=== PATIENT | male | born 1950 | race Caucasian/White ===

== ENCOUNTER 2018-04-20 01:05 | Outpatient (CLI) | payer OTHER, SELFPAY ==
[2018-04-20 11:11] LABS: ALT 15 U/L (12-78); AST 17 U/L (15-37); Albumin 3.1 g/dL (3.4-5.0); Alkaline Phosphatase 158 U/L (46-116); Anion Gap 9.6 mmol/L (3-11); BUN 69 mg/dL (7-18); Bilirubin, Total 1.9 mg/dL (0.2-1.0); CO2 34.4 mmol/L (21.0-32.0); CREATININE 1.62 mg/dL (0.70-1.30); Calcium 8.8 mg/dL (8.5-10.1); Chloride 94 mmol/L (98-107); Estimated GFR 42.59 (mL/min/1.73m2); Glucose 110 mg/dL (70-100); Potassium 3.3 mmol/L (3.5-5.1); Sodium 138 mmol/L (136-145); Total Protein 7.5 g/dL (6.4-8.2)
[2018-04-20 11:25] LABS: INR 2.6 (1.0-3.5); Prothrombin Time 24.6 sec (9.3-10.8)
== END 2018-04-20 01:25 ==
PROVIDERS: Family Medicine
DX: I42.9 Cardiomyopathy, unspecified (principal); I48.91 Unspecified atrial fibrillation; R94.6 Abnormal results of thyroid function studies; I48.92 Unspecified atrial flutter; Z79.01 Long term (current) use of anticoagulants
CPT/HCPCS: 36415; 80053; 84443; 85610

== ENCOUNTER → 2018-05-17 13:24 | Outpatient (BNVA) | payer OTHER, SELFPAY | PROVIDERS: Visit Provider Internal Medicine Cardiovascular Disease | DX: I42.9 Cardiomyopathy, unspecified (principal); I50.9 Heart failure, unspecified; R94.5 Abnormal results of liver function studies; I07.1 Rheumatic tricuspid insufficiency; I48.91 Unspecified atrial fibrillation; Z79.01 Long term (current) use of anticoagulants | CPT/HCPCS: 99215 ==

== ENCOUNTER 2018-05-25 14:47 | Inpatient (IN) | payer OTHER, SELFPAY ==
[2018-05-25 15:02] VITALS: BP 144/82; PULSE 65; RESP 18; TEMP 37; O2SAT 94
[2018-05-25 15:04] VITALS: RESP 18
--- NOTE | 2018-05-25 15:06 | DI.COMBO_ITS ---
SYMPTOM/DIAGNOSIS: ALTERED MENTATION FRONTAL AND LATERAL CHEST: Comparison is made with 07/29/11. The heart is enlarged but stable. Pulmonary vasculature is within normal limits. There is scarring again seen in the right upper lobe. No focal consolidating infiltrate, effusion or pneumothorax is identified. The lungs appear hyperinflated with flattened diaphragms suggesting underlying COPD. The bones are unremarkable. IMPRESSION: No acute pulmonary process. NONCONTRAST HEAD CT: No priors. The ventricles and sulci are consistent with the patient's age, likely reflecting mild cerebral atrophy. There are areas of decreased attenuation in the white matter most suggestive of small vessel ischemic disease. No acute infarct, hemorrhage, midline shift or mass effect is identified. The ventricles are intact. The basilar cisterns are patent. The visualized paranasal sinuses are clear. The mastoid air cells are well pneumatized. The calvarium is intact. IMPRESSION: No acute intracranial process.
--- NOTE | 2018-05-25 15:12 | ED.GENADUL_ITS ---
Discharge Plan Disposition Condition: Fair Discharge Details Chief Complaint: AMS/LOC Reason For Visit: ALTERED MENTAL STATUS Admit Date/Time: 05/25/18 16:19 Admit Provider: Michael Hernandez Attending Provider: Michael Hernandez Primary Care Provider: Destinee Lewis ED Provider: Henry Rhodes Discharge Instructions Activity:: Activity as Tolerated Equipment/Supplies:: No Equipment Needed Diet:: Low Sodium Discharge Orders Discharge Orders: Discharge Order (Routine); Ordered 06/01/18 Ordered By: Meri Cardozo Discharge Data Discharge Date/Time-TO BE ENTERED AT DEPARTURE: 05/25/18 18:43 Medical Decision Making 15:15--68-year-old male with multiple medical problems including chronic kidney disease, cardiomyopathy, CHF, atrial fibrillation status post ablation, MGUS, COPD, here with altered mental status worsening over the past 1 week. Patient is now severely altered and oriented only to person. His baseline is alert and oriented x4. No focal neurologic deficits on exam. ECG reviewed and interpreted by me: Atrial fibrillation 84 bpm, diffuse low voltage, intermittent PVCs, right axis deviation. 16:15 --labs reviewed and total bilirubin elevated, ammonia elevated. Unclear etiology. Suspect this is resulting in altered mental status. INR supratherapeutic. I called and spoke with Dr. Hernandez (hospitalist) who will admit the patient. He requested bridging orders to the floor. Care transitioned to Dr. Hernandez. HPI General Mode of arrival: ambulatory . Date/Time Provider Initiated Documentation: 05/25/18 14:52 . Limitations to Documentation: altered mental status . Information obtained by: patient and family () . HPI Narrative: 68-year-old male with history of heart failure, cardiomyopathy, COPD, MGUS, atrial fibrillation status post ablation, chronic renal disease, here with altered mental status. History and review of systems Limited as patient is altered. Patient's notes that over the past 1 week he has had progressively increasing confusion. He is now severely confused. Patient is usually alert and oriented x4. Patient denies pain. Related Data Home Medications Medication Instructions Recorded Confirmed magnesium oxide 400 mg PO BID #180 tab-cap 04/08/15 05/25/18 mupirocin calcium [Bactroban] 1 applic TOPICAL BID PRN #30 gm 08/19/15 05/25/18 digoxin 1 tab PO DAILY #90 tab-cap 03/28/17 05/25/18 triamcinolone acetonide 1 lorna TOPICAL BID #1 tube 04/17/17 05/25/18 tiotropium bromide [Spiriva with 18 mcg INHALATION DAILY PRN #3 10/19/17 HandiHaler] tab-cap allopurinol 300 mg PO DAILY #90 tab-cap 10/27/17 05/25/18 metolazone 5 mg PO as directed #30 tab-cap 12/13/17 05/25/18 torsemide 60 mg PO DAILY #180 tab-cap 12/13/17 05/25/18 lisinopril 2.5 mg tablet 2.5 mg PO DAILY #90 tab 04/04/18 05/25/18 simvastatin 40 mg PO DAILY #90 tab-cap 04/17/18 05/25/18 potassium chloride ER 10 mEq 10 meq PO DAILY #90 tab 05/20/18 05/25/18 tablet,extended release lactulose 20 g PO TID #1800 g 05/31/18 rifaximin [Xifaxan] 550 mg PO BID #60 tab 05/31/18 Previous Rx's Medication Instructions Recorded triamcinolone acetonide 1 lorna TOPICAL BID #1 tube 04/17/17 allopurinol 300 mg PO DAILY #90 tab-cap 10/27/17 metolazone 5 mg PO as directed #30 tab-cap 12/13/17 torsemide 60 mg PO DAILY #180 tab-cap 12/13/17 lisinopril 2.5 mg tablet 2.5 mg PO DAILY #90 tab 04/04/18 simvastatin 40 mg PO DAILY #90 tab-cap 04/17/18 potassium chloride ER 10 mEq 10 meq PO DAILY #90 tab 05/20/18 tablet,extended release lactulose 20 g PO TID #1800 g 05/31/18 rifaximin [Xifaxan] 550 mg PO BID #60 tab 05/31/18 Allergies Allergy/AdvReac Type Severity Reaction Status Date / Time heparin AdvReac Severe decreased Verified 05/15/18 13:30 renal function ? Iodine AdvReac Intermediate Rash Uncoded 02/25/16 08:45 General Stated Complaint: AMS/LOC SUSIE: 2 Review of Systems Review of Systems Limited secondary to altered mental status Cardiovascular Denies chest pain, Denies syncope and Denies dyspnea Respiratory Denies dyspnea Gastrointestinal Denies abdominal pain Neurologic Denies syncope PFSH Family History Brother Heart disease Grandfather No problems noted. Grandfather No problems noted. Mother Diabetes Alcohol abuse Father Alcohol abuse Grandmother Diabetes Grandmother No problems noted. 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) Sleep apnea (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) Hyperlipidemia (Chronic 03/20/13) History of alcoholism (Chronic) Family hx of alcoholism (Chronic) History of tobacco use (Chronic) Gout (Chronic 03/03/14) Facial dermatitis (Chronic 04/17/17) Disorder of lung (Acute 11/14/12) Chronic venous stasis dermatitis of both lower extremities (Chronic 10/24/17) Atrial fibrillation (Chronic 03/03/14) Anticoagulated on warfarin (Chronic) Social History household members: spouse housing: house lives independently: No (pt doesn't drive, meals done ahead if will be alone) current occupational status: retired pets and animals: Yes (cat is currently missing) pets and animals: cat(s) frequency: daily Smoking/Tobacco Use Status: Former Tobacco Use how long ago did patient quit smoking: QUIT 04/06/2005 alcohol intake: never details: Unknown substance use type: does not use special uriah needs: No seatbelt use: always drive intox or ride w/ intox garbage collector driver: No working smoke detector in home: Yes fire extinguisher in home: Yes carbon monox detector in home: Yes firearms in home: No Surgical History Extraction of cataract (02/18/16) 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) Exam Const General: cooperative and no acute distress HENMT Head: normocephalic and atraumatic Mouth: moist mucous membranes Eyes Conjunctivae: normal conjunctivae Sclera: normal sclerae Pupils: PERRL and pupil size (5) bilaterally EOM: EOM intact bilaterally Neck Neck: trachea midline and supple Resp Auscultation: clear to auscultation bilaterally, no rales, no rhonchi and no wheezes Cardio Jugular venous pressure: no JVD Rate: regular rate and not tachycardic Rhythm: regular rhythm GI Palpation: soft, not firm, no guarding, no masses, not rigid and nontender Skin General skin exam: other (cyanosis nose ( notes chronic); chronic venous stasis LEs bilateral) Neuro General: alert, awake, oriented Patient Orientation: Person and moves all extremities Cranial Nerves: CN's II-XI intact bilaterally Cognition: abnormal cognition Speech: speech normal Motor: strength 5/5 throughout Sensory Exam: no sensory deficits noted Pupils: Normal pupillary reactivity/response: bilateral Extrem General: no edema Psych Mental Status: mental status grossly abnormal Course Vital Signs Temperature 37.0 C 05/25/18 15:02 Pulse 65 05/25/18 15:02 Respiratory Rate 18 05/25/18 15:02 Blood Pressure 144/82 H 05/25/18 15:02 Pulse Oximetry 94 L 05/25/18 15:02 Temperature 37.0 C 05/25/18 15:02 Temperature Source Temporal Artery Scan 05/25/18 15:02 Pulse 65 05/25/18 15:02 Respiratory Rate 18 05/25/18 15:04 Respiratory Effort 05/25/18 15:04 Respiratory Pattern Normal 05/25/18 15:04 Blood Pressure 144/82 H 05/25/18 15:02 Blood Pressure Position Sitting 05/25/18 15:02 Pulse Oximetry 94 L 05/25/18 15:02 Oxygen Delivery Method Room Air 05/25/18 15:02 Oxygen Flow Rate 0 05/25/18 15:02 Pain Level 0 05/25/18 15:02
[2018-05-25 15:28] LABS: Absolute Basophil Count 0.04 k/cumm (0.0-0.2); Absolute Eosinophil Count 0.06 k/cumm (0.0-0.7); Absolute Lymphocyte Count 1.27 k/cumm (1.2-3.4); Absolute Monocyte Count 0.61 k/cumm (0.11-0.7); Absolute Neutrophil Count 3.87 k/cumm (1.2-6.7); Basophils % 0.7; HCT 50.4 % (40.0-50.0); HGB 16.4 g/dL (13.5-17.5); Lymphocytes % 21.7; Mean Corp. HGB Concentration 32.5 g/dL (32.0-36.0); Mean Corpuscular Hemoglobin 32.5 pg (27.0-33.0); Mean Corpuscular Volume 99.8 fL (80-95); Mean Platelet Volume 10.7 fL (8.0-11.0); Monocytes % 10.4; Neutrophils % 66.2; Platelet Count 233 x1000/uL (130-400); RBC 5.05 m/cumm (4.50-6.00); RBC Distribution Width 16.1 % (11.8-14.1); White Blood Cell Count 5.85 k/cumm (4.4-10.8)
[2018-05-25 15:41] LABS: Ammonia 151 umol/L (11-32)
[2018-05-25 15:42] LABS: INR 3.8 (1.0-3.5); Prothrombin Time 35.5 sec (9.3-10.8)
[2018-05-25 15:44] LABS: ALT 18 U/L (12-78); AST 22 U/L (15-37); Albumin 2.7 g/dL (3.4-5.0); Alkaline Phosphatase 223 U/L (46-116); BUN 55 mg/dL (7-18); Bilirubin, Total 1.8 mg/dL (0.2-1.0); Calcium 8.8 mg/dL (8.5-10.1); Chloride 94 mmol/L (98-107); Estimated GFR 40.16 (mL/min/1.73m2); Glucose 140 mg/dL (70-100); Potassium 3.7 mmol/L (3.5-5.1); Sodium 135 mmol/L (136-145); Total Protein 8.2 g/dL (6.4-8.2); Troponin I 0.02 ng/mL (0.00-0.06)
[2018-05-25 15:50] LABS: Magnesium 1.9 mg/dL (1.8-2.4); TSH (W/Ref FT4) 2.85 uIU/mL (0.358-3.74)
[2018-05-25 15:56] LABS: Bilirubin Negative (Negative); Blood Trace-lysed (Negative); Clarity Clear; Glucose Negative (Negative); Ketones Negative (Negative); Leukocyte Esterase Negative (Negative); Nitrite Negative (Negative); Specific Gravity 1.015 (1.005-1.025); Urobilinogen 0.2 EU/dL (Up TO 0.2)
[2018-05-25 16:04] LABS: Bacteria Rare HPF (Negative); C & S Indicated? No; Casts Negative LPF (Negative); Crystals Negative HPF (Negative); Epithelial Cells Negative HPF (Negative); Mucus Negative (Negative); WBC 0-2 HPF (0-5)
--- NOTE | 2018-05-25 16:46 | DI.VRAD_ITS ---
EXAM: XR Chest, 2 Views EXAM DATE/TIME: 05/25/2018 3:09 PM CLINICAL HISTORY: 68 years old, male; Signs and symptoms; Other: Altered mentation TECHNIQUE: XR of the chest, 2 views. COMPARISON: CR CHEST 2 VIEWS PA,LAT 07/29/2011 11:16 AM FINDINGS: Lungs: Unremarkable. No consolidation. Pleural space: Unremarkable. No pleural effusion. No pneumothorax. Heart/Mediastinum: Cardiomegaly, unchanged. Bones/joints: Unremarkable. IMPRESSION: No acute abnormality. Dictated and Authenticated by: Dionisio Bello MD. Ordering:ALEXI SEBASTIAN MD
--- NOTE | 2018-05-25 16:49 | DI.VRAD_ITS ---
EXAM: CT Head Without Intravenous Contrast EXAM DATE/TIME: 05/25/2018 3:09 PM CLINICAL HISTORY: 68 years old, male; Signs and symptoms; Altered mental status/memory loss; Patient HX: Altered mentation TECHNIQUE: Axial computed tomography images of the head/brain without intravenous contrast. Coronal and sagittal reformatted images were created and reviewed. COMPARISON: No relevant prior studies available. FINDINGS: Brain: Global cerebral atrophy consistent with patient's age. Minimal low density changes within the white matter tracts of both cerebral hemispheres. These findings are nonspecific but typically seen with small vessel disease/chronic white matter ischemic changes of aging. No intracranial hemorrhage. No mass effect. Ventricles: Unremarkable. No ventriculomegaly. Bones/joints: Unremarkable. No acute fracture. Sinuses: Normal as visualized. No acute sinusitis. Mastoid air cells: Normal as visualized. No mastoid effusion. Soft tissues: Unremarkable. Vasculature: Mild atherosclerosis of the cavernous carotid arteries. IMPRESSION: No acute abnormality. Dictated and Authenticated by: Dionisio Bello MD. Ordering:ALEXI SEBASTIAN MD
--- NOTE | 2018-05-25 16:58 | NUR.NOTE ---
3 beat run of V-tach reported to Dr Rhodes Nursing Note:
[2018-05-25] MEDS: Normal Saline 1,000 ML 125 ML IV ×2 (17:35→22:53)
--- NOTE | 2018-05-25 18:47 | W.PM.HP.N ---
Date of service: 05/25/18 Time of Service: 18:47 Assessment and Plan (1) Altered mental status: Current visit: Yes Status: Acute Evidence of slowly progressive and worsening change in mental status over the last week. Currently with evidence of elevated ammonia levels in patient with possible prior ETOH abuse/use - spouse cannot confirm this, but this diagnosis is a historic entry. Also with significant biventricular failure with likely Congestive Hepatopathy as a result of significant PHTN and right heart failure. Potential for underlying liver disease - Will check Liver Ultrasound, start Lactulose, repeat am ammonia, and monitor mental status carefully. Also for potential chronic Digoxin toxicity, although without any GI symptoms - will check levels now. Also check B12/FA. TSH normal. Patient without evidence of an infection with a normal urinalysis, CXR, temperature, and WBC. No evidence of acidosis by labs, not hypoxic, and no new medications. Troponin is negative, but will trend serial cardiac biomarkers. No evidence of space occupying lesions by CT, and no significant electrolyte derangement. (2) Congestive heart failure: Current visit: Yes Status: Chronic Biventricular CHF, with LVEF 20-25% - Stage C NYHA Class IV CHF. Continue current regimen of BB, ASA, and statin, although etiology of heart failure is unknown. daily Torsemide with twice weekly Metolazone. (3) CKD (chronic kidney disease): Current visit: Yes Status: Chronic Noted in patient on diuretic therapy and significant cardiomyopathy. Current vallues slightly above baseline. Monitor, renally dose medications when appropriate, and avoid nephrotoxins if possible. (4) BUCKY (obstructive sleep apnea): Current visit: Yes Status: Chronic CPAP noncompliant. Reported significant history of PHTN. (5) Atrial fibrillation: Current visit: Yes Status: Chronic Continue BB and Digoxin, and monitor on telemetry. Coumadin on hold. (6) Anticoagulated on warfarin: Current visit: Yes Status: Chronic Chronic anticoagulation with Coumadin, currently on hold due to Supratherapeutic INR. (7) DVT prophylaxis: Current visit: Yes Status: Acute Holding Coumadin with daily INR checks, currently elevated value. PPI for GI Prophylaxis. (8) Advanced directives, counseling/discussion: Current visit: Yes Status: Acute Discussed in detail. Patient is considered full code at this time, but will bring COLST form for review tomorrow. Understanding is that he wants 'everything done' as long as there is hope for survival. Will maintain full code for now and review COLST when available. Patient has seen Palliative medicine. History of Present Illness Chief Complaint: Altered Mental Status Narrative: 68 year old man with a past medical history significant for Severe Biventricular CHF, Afib on chronic Anticoagulation, CKD, and possible prior history of ETOH abuse presents to [facility] Emergency Department with reported progressive altered mental status. Mr. Malik is accompanied by his who is the primary historian. She reports that approximately one week ago the patient began experiencing slight confusion, with events such as forgetting to close the refrigerator door. By midweek she reports that his symptoms had progressed, and he at times appeared nonsensical in his speech and interactions. By 2 days ago she states that he was having tremendous difficulty with using items such as his iPhone, iPad, and the Television Remote. Today she left the house briefly to go shopping, and upon her return found the patient in the living room confused and with his pants down. At that point she brought him to the emergency room for further evaluation. Work-up in the ED included normal CXR and CT of the head. Labs were fairly unremarkable with the exception of mild elevation in bilirubin and Alk Phos with normal ALT/AST, but with an elevated Ammonia of 151. His urinalysis was negative. The patient was also found to be confused and oriented to self only. He was referred for admission for further evaluation and treatment. Review of Systems Review of Systems Unobtainable due to mental status [facility] Family History Brother Heart disease Grandfather No problems noted. Grandfather No problems noted. Mother Diabetes Alcohol abuse Father Alcohol abuse Grandmother Diabetes Grandmother No problems noted. Medical History Hand arthritis (Acute) MGUS (monoclonal gammopathy of unknown significance) (Acute 01/14/15) Sleep apnea (Acute 01/14/15) History of tobacco use (Acute) Gout (Acute 03/03/14) Disorder of lung (Acute 11/14/12) Cardiomyopathy (Acute 11/14/12) Atrial fibrillation (Acute 03/03/14) Social History household members: spouse housing: house lives independently: No (pt doesn't drive, meals done ahead if will be alone) current occupational status: retired pets and animals: Yes (cat is currently missing) pets and animals: cat(s) frequency: daily Smoking/Tobacco Use Status: Former Tobacco Use how long ago did patient quit smoking: QUIT 04/06/2005 alcohol intake: never substance use type: does not use special uriah needs: No seatbelt use: always drive intox or ride w/ intox stake driver: No working smoke detector in home: Yes fire extinguisher in home: Yes carbon monox detector in home: Yes firearms in home: No Surgical History Extraction of cataract (02/18/16) 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) Meds Home Medications Medication Instructions Recorded Confirmed Type magnesium oxide 400 mg PO BID #180 tab-cap 04/08/15 05/25/18 History mupirocin calcium [Bactroban 2% 1 applic TOPICAL BID PRN #30 gm 08/19/15 05/25/18 History Cream] digoxin 1 tab PO DAILY #90 tab-cap 03/28/17 05/25/18 History triamcinolone acetonide 1 lorna TOPICAL BID #1 tube 04/17/17 05/25/18 Rx tiotropium bromide [Spiriva 18 mcg INHALATION DAILY PRN #3 10/19/17 05/25/18 History Handihaler] tab-cap allopurinol 300 mg PO DAILY #90 tab-cap 10/27/17 05/25/18 Rx Metoprolol Succinate 50 mg PO DAILY #90 tab-cap 12/13/17 05/25/18 Clinic metolazone 5 mg PO as directed #30 tab-cap 12/13/17 05/25/18 Rx torsemide 60 mg PO DAILY #180 tab-cap 12/13/17 05/25/18 Rx lisinopril 2.5 mg tablet 2.5 mg PO DAILY #90 tab 04/04/18 05/25/18 Rx simvastatin 40 mg PO DAILY #90 tab-cap 04/17/18 05/25/18 Rx warfarin 5 mg tablet 5 mg PO DAILY #100 tab-cap 05/07/18 05/25/18 Rx potassium chloride ER 10 mEq 10 meq PO DAILY #90 tab 05/20/18 05/25/18 Rx tablet,extended release Allergies Allergy/AdvReac Type Severity Reaction Status Date / Time heparin AdvReac Severe decreased Verified 05/15/18 13:30 renal function ? Iodine AdvReac Intermediate Rash Uncoded 02/25/16 08:45 Exam Narrative Exam Narrative: General: Patient appears comfortable, NAD. Awake and Alert, oriented to self only. Neck: Supple CV: Regular, nontachycardic, S1S2, No rubs, 3/6 LLSB murmur, no gallops. Pulmonary: Clear to auscultation bilaterally, no crackles, wheezing, or rhonchi on limited anterior and lateral exam Abdomen: + Bowel Sounds, soft, nontender, nondistended. Obese in contour. No [place] noted. Vascular: No lower extremity edema Neurologic: CN II-XII grossly intact. No focal deficits. Psych: Normal mood and affect. Results Labs : 05/25/18 15:16 05/25/18 15:16 Laboratory Results - last 24 hr 05/25/18 05/25/18 05/25/18 15:16 15:16 15:16 WBC RBC Hgb Hct MCV MCH MCHC RDW Plt Count MPV Immature Gran % Neutrophils % Lymphocytes % Monocytes % Eosinophils % Basophils % Absolute Neutrophils Absolute Lymphocytes Absolute Monocytes Absolute Eosinophils Absolute Basophils PT INR Sodium 135 L Potassium 3.7 Chloride 94 L Carbon Dioxide 36.0 H Anion Gap 5.0 BUN 55 H Creatinine 1.70 H Estimated GFR/1.73 m2 40.16 Glucose 140 H Calcium 8.8 Magnesium 1.9 Total Bilirubin 1.8 H AST 22 ALT 18 Alkaline Phosphatase 223 H Ammonia 151 H Troponin I 0.02 Total Protein 8.2 Albumin 2.7 L TSH 2.85 Urine Color Urine Clarity Urine pH Ur Specific [place] Urine Protein Urine Ketones Urine Blood Urine Nitrite Urine Bilirubin Urine Urobilinogen Ur Leukocyte Esterase Urine RBC Urine WBC Ur Epithelial Cells Urine Crystals Urine Bacteria Urine Casts Urine Mucus Ur Culture Indicated? Urine Glucose 05/25/18 05/25/18 05/25/18 15:16 15:16 15:49 WBC 5.85 RBC 5.05 Hgb 16.4 Hct 50.4 H MCV 99.8 H MCH 32.5 MCHC 32.5 RDW 16.1 H Plt Count 233 MPV 10.7 Immature Gran % 0.0 Neutrophils % 66.2 Lymphocytes % 21.7 Monocytes % 10.4 Eosinophils % 1.0 Basophils % 0.7 Absolute Neutrophils 3.87 Absolute Lymphocytes 1.27 Absolute Monocytes 0.61 Absolute Eosinophils 0.06 Absolute Basophils 0.04 PT 35.5 H INR 3.8 H Sodium Potassium Chloride Carbon Dioxide Anion Gap BUN Creatinine Estimated GFR/1.73 m2 Glucose Calcium Magnesium Total Bilirubin AST ALT Alkaline Phosphatase Ammonia Troponin I Total Protein Albumin TSH Urine Color Yellow Urine Clarity Clear Urine pH 7.0 Ur Specific [place] 1.015 Urine Protein Negative Urine Ketones Negative Urine Blood Trace-lysed H Urine Nitrite Negative Urine Bilirubin Negative Urine Urobilinogen 0.2 Ur Leukocyte Esterase Negative Urine RBC 5-10 H Urine WBC 0-2 Ur Epithelial Cells Negative Urine Crystals Negative Urine Bacteria Rare Urine Casts Negative Urine Mucus Negative Ur Culture Indicated? No Urine Glucose Negative Last Vital Signs Temp 37.0 C 05/25/18 15:02 Pulse 65 05/25/18 15:02 Resp 18 05/25/18 15:04 BP 144/82 H 05/25/18 15:02 Pulse Ox 94 L 05/25/18 15:02
[2018-05-25 19:24] VITALS: BP 116/71; PULSE 78; RESP 22; TEMP 36.4; O2SAT 97
[2018-05-25] MEDS: Normal Saline Flush 10 ML SYR (19:34)
[2018-05-25] MEDS: Pantoprazole 40 MG VIAL IVP (19:34)
[2018-05-25] MEDS: Simvastatin 40 MG TAB PO (19:40)
[2018-05-25] MEDS: Magnesium Oxide 400 MG TAB PO (19:40)
[2018-05-25] MEDS: Lactulose 20 GM/30 ML CUP PO (19:41)
[2018-05-25 22:45] LABS: Troponin I 0.04 ng/mL (0.00-0.06)
[2018-05-25 23:07] LABS: Folate 14.9 ng/mL (8.6-20.0); Vitamin B12 738 pg/mL (193-986)
[2018-05-25 23:45] VITALS: BP 92/55; PULSE 50; RESP 20; TEMP 36.4; O2SAT 96
[2018-05-26] VITALS (9 sets, daily range): BP systolic 122–132; BP diastolic 75–78; PULSE 62–80; RESP 18–22; TEMP 36.6–36.8; O2SAT 95–96
--- NOTE | 2018-05-26 07:39 | PDOC.CMIN ---
- If Service Date Differs Date of service: 05/26/18 Time of Service: 07:39 Care Management Initial Assess REASON FOR HOSPITALIZATION:: Altered Mental Status. PAST MEDICAL HISTORY/PAST SURGICAL HISTORY:: A-fib/flutter, chronic venous stasis dermatitis bilateral LEs, CKD, CHF, disorder of lung, facial dermatitis, hx gout, hand arthritis, hx alcoholism and tobacco use, hyperlipidemia, MGUS, BUCKY, pulmonary hypertension, sleep apnea. Surgical hx: extraction of cataract, recurrent major depression. PREVIOUS FUNCTIONAL STATUS/SOCIAL/FAMILY SUPPORTS:: Demar resides with his , Azul, in [place]. Between the two of them, Demar and Azul have lots of kids, the closest whom resides in [place], [place]. 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 Demar requires assistance with his medications and bathing at baseline but has been able to remain independent with his dressing and eating. He has not used an ambulatory device prior to admission. Rhett has supplemental O2 at home. Azul provides transportation. CURRENT FUNCTIONAL STATUS:: Demar is sitting in his chair with , Azul, at bedside when CM visits. Demar is oriented to self only so history is provided solely by Azul. According to Azul, Demar's mentation at baseline is 'so-so' and over the last week or so he has declined substantially. She is his primary care provider and has taken time off of work to stay with him prior to this admission. She expresses desire to return to work and have home health aides tend to Demar '5-6 hours per day'. BRIAN and Azul discuss options for care givers and next steps for Demar. She refuses the option of a short term or jail nursing facility and reiterates that she would like to bring him home with services and/or private caregivers. provides Coby and Demar with contact information for several local caregiver organizations and will continue to follow up with them regarding such. Dem[facility] (he has [facility]2 at home), and is being monitored on telemetry. ADVANCE DIRECTIVES:: None on file at [facility]. Has patient been provided with information about the portal?: Yes Did the patient sign up for the portal?: No CODE STATUS:: Full Code INSURANCE COVERAGE / FINANCIAL ISSUES:: [facility] PPO. CURRENT HOME/COMMUNITY SERVICES/EQUIPMENT:: No current home or community services. Equipment includes a raised toilet seat, home O2 services through [facility] [place]. PRIMARY CARE PHYSICIAN:: Destinee Lewis NP. POTENTIAL DISCHARGE NEEDS:: Follow up appointment with PCP. PATIENT/FAMILY EDUCATION NEEDS:: Discharge education, any limitations, and follow up plan of care. Ask Me Three discussion. ANTICIPATED BARRIERS TO DISCHARGE:: No anticipated barriers to discharge. TRANSPORTATION:: Demar will transport via private vehicle with his , Azul. PLAN:: Demar will discharge when medically ready per MD. Anticipate patient will discharge with no services vs. nursing/PT/OT (?) and follow up with PCP. CM will continue to offer support to patient and care team regarding discharge planning and disposition.
--- NOTE | 2018-05-26 07:43 | INITIAL_ITS ---
- If Service Date Differs Date of service: 05/26/18 Time of Service: 07:39 Care Management Initial Assess REASON FOR HOSPITALIZATION:: Altered Mental Status. PAST MEDICAL HISTORY/PAST SURGICAL HISTORY:: A-fib/flutter, chronic venous stasis dermatitis bilateral LEs, CKD, CHF, disorder of lung, facial dermatitis, hx gout, hand arthritis, hx alcoholism and tobacco use, hyperlipidemia, MGUS, BUCKY, pulmonary hypertension, sleep apnea. Surgical hx: extraction of cataract, recurrent major depression. PREVIOUS FUNCTIONAL STATUS/SOCIAL/FAMILY SUPPORTS:: Demar resides with his , Azul, in [place]. Between the two of them, Demar and Azul have lots of kids, the closest whom resides in [place], [place]. Demar is retired and Azul works full at [employer] as a director community organization. Demar requires assistance with his medications and bathing at baseline but has been able to remain independent with his dressing and eating. He has not used an ambulatory device prior to admission. Rhett has supplemental O2 at home. Azul provides transportation. CURRENT FUNCTIONAL STATUS:: Demar is sitting in his chair with , Azul, at bedside when CM visits. Demar is oriented to self only so history is provided solely by Azul. According to Azul, Demar's mentation at baseline is 'so-so' and over the last week or so he has declined substantially. She is his primary care provider and has taken time off of work to stay with him prior to this admission. She expresses desire to return to work and have home health aides tend to Demar '5-6 hours per day'. BRIAN and Azul discuss options for care givers and next steps for Demar. She refuses the option of a short term or remote computer terminal operator nursing facility and reiterates that she would like to bring him home with services and/or private caregivers. provides Coby and Demar with contact information for several local caregiver organizations and will continue to follow up with them regarding such. Demar is receiving supplemental O2 via [place] (he has O2 at home), and is being monitored on telemetry. ADVANCE DIRECTIVES:: None on file at [facility]. Has patient been provided with information about the portal?: Yes Did the patient sign up for the portal?: No CODE STATUS:: Full Code INSURANCE COVERAGE / FINANCIAL ISSUES:: [facility] PPO. CURRENT HOME/COMMUNITY SERVICES/EQUIPMENT:: No current home or community services. Equipment includes a raised toilet seat, home O2 services through [facility]. PRIMARY CARE PHYSICIAN:: Destinee Lewis NP. POTENTIAL DISCHARGE NEEDS:: Follow up appointment with PCP. PATIENT/FAMILY EDUCATION NEEDS:: Discharge education, any limitations, and follow up plan of care. Ask Me Three discussion. ANTICIPATED BARRIERS TO DISCHARGE:: No anticipated barriers to discharge. TRANSPORTATION:: Demar will transport via private vehicle with his , Azul. PLAN:: Demar will discharge when medically ready per MD. Anticipate patient will discharge with no services vs. nursing/PT/OT (?) and follow up with PCP. CM will continue to offer support to patient and care team regarding discharge planning and disposition.
[2018-05-26 08:21] LABS: Abs Immature Grans 0.01 k/cumm (0.0-0.09); Absolute Basophil Count 0.05 k/cumm (0.0-0.2); Absolute Eosinophil Count 0.05 k/cumm (0.0-0.7); Absolute Lymphocyte Count 1.02 k/cumm (1.2-3.4); Absolute Monocyte Count 0.66 k/cumm (0.11-0.7); Absolute Neutrophil Count 4.11 k/cumm (1.2-6.7); Basophils % 0.8; Eosinophils % 0.8; HCT 47.9 % (40.0-50.0); HGB 15.8 g/dL (13.5-17.5); Immature Grans % 0.2; Lymphocytes % 17.3; Mean Corpuscular Hemoglobin 32.6 pg (27.0-33.0); Mean Corpuscular Volume 98.8 fL (80-95); Mean Platelet Volume 10.3 fL (8.0-11.0); Monocytes % 11.2; Neutrophils % 69.7; Platelet Count 218 x1000/uL (130-400); RBC 4.85 m/cumm (4.50-6.00); RBC Distribution Width 16.6 % (11.8-14.1)
[2018-05-26 08:23] LABS: Ammonia 125 umol/L (11-32)
[2018-05-26 08:30] LABS: Prothrombin Time 42.3 sec (9.3-10.8)
[2018-05-26 08:33] LABS: ALT 17 U/L (12-78); AST 16 U/L (15-37); Albumin 2.7 g/dL (3.4-5.0); Alkaline Phosphatase 204 U/L (46-116); Anion Gap 6.9 mmol/L (3-11); BUN 54 mg/dL (7-18); CO2 33.1 mmol/L (21.0-32.0); CREATININE 1.61 mg/dL (0.70-1.30); Calcium 8.7 mg/dL (8.5-10.1); Chloride 99 mmol/L (98-107); Estimated GFR 42.76 (mL/min/1.73m2); Glucose 103 mg/dL (70-100); Potassium 3.4 mmol/L (3.5-5.1); Sodium 139 mmol/L (136-145); Total Protein 7.7 g/dL (6.4-8.2); Troponin I 0.04 ng/mL (0.00-0.06)
[2018-05-26 08:39] LABS: INR 4.6 (1.0-3.5)
[2018-05-26] MEDS: Lactulose 20 GM/30 ML CUP PO ×3 (08:59→20:09)
[2018-05-26] MEDS: Digoxin 0.125 MG TAB PO (09:01)
[2018-05-26] MEDS: Lisinopril 5 MG TAB 2.5 MG PO (09:01)
[2018-05-26] MEDS: Magnesium Oxide 400 MG TAB PO ×2 (09:02→20:08)
[2018-05-26] MEDS: Potassium Chloride 10 MEQ CAPCR PO (09:02)
[2018-05-26] MEDS: Metoprolol CR 50 MG TABCR PO (09:02)
[2018-05-26] MEDS: Allopurinol 300 MG TAB PO (09:02)
[2018-05-26] MEDS: Torsemide 20 MG TAB 40 MG PO (10:29)
--- NOTE | 2018-05-26 12:02 | PHARADMIT ---
Addendum entered by Noe Moiz Barron NADEGE 05/30/18 15:07: Pharmacy Note Subjective Patient experiencing multiple BM on Lactulose, MD trying Rifaxamin. Lactulose still at TID MD wanted cardiology to determine if AICD was needed for EF of 25-30%. Answer No. Objective VS-OK INR-2.1 Na-131 K+3.4 Mag-2.1 BG-123 SCr-1.91 No BM reported today. Assessment Rocephin continues, Torsemide increased to BID. Warfarin still on HOLD. Digoxin continues Plan NO new MD note yet today. Original Note: Addendum entered by Noe Rockwell Barron NADEGE 05/29/18 11:38: Pharmacy Note Subjective Patient has Cirrhosis /Hepatic encephalopathy, and experienced Altered Mental Status, which clearing slowly.Needs Lactulose for high ammonia level but causes multiple BMs MRI shows no stroke. On tele, has runs of V-tach. Patient neeeds AICD per MD.Has low EF. CM report patient is doing better and would like to return home. Objective VS-OK K+3.5 Mag-1.7 SCr-1.77 INR-2.6 Ammonia-69 (range-11-32) Having multiple BMs Assessment Lactulose continues TID, Lac-Hydrin ordered for arm scratches. Plan MD considering ordering a Palliative Care consult. Original Note: Addendum entered by Noe Moiz ArroyoBarron NADEGE 05/29/18 11:37: Pharmacy Note Subjective Objective Assessment Plan Original Note: Addendum entered by Barbra England 05/27/18 14:14: Pharmacy Note Subjective Tele: Afib w/Vtach, reported facial droop by @ home, RN mentions possible Ascites Objective VS ok, on 2 L oxygen, INR 5.4 lytes good Assessment Vit K orally 5mg x 1 today May decrease Lactulose for loose/frequent BM's Rocephin for ? Cellulitis or tick borne illness per MD note Plan Ultrasound or CT of Abdomen, Need patient weights-on diuretics Watch for restart of Warfarin, check lyme titer Original Note: Admission Pharmacy Clinical Review Altered mental status Code Status Full Code Current Weight 107.1 kg Renally Cleared and Narrow Therapeutic Index Meds CrCl~41ml/min QTc Value / Action Taken QTC 447 BP Control, Fever BP 122/78 Afebrile Electrolytes reviewed K+ 3.4 (K+ 10meq daily) Mag 1.9 (MagOx 400mg BID) DVT Prophylaxis high INR....Warfarin @ home for Afib Opiate Usage / Scheduled Bowel Regimen Ordered Plt/SCr for Heparin / Enoxaparin Plt 218 SCr 1.61 INR for Warfarin INR 4.6 (Warfarin held) H/H stable, WBC/Bands H/H 15.8/47.9 WBC 5.90 Antibiotic appropriateness Cultures and Sensitivities Surgical ABX d/c within 24 hr DM control / Insulin Dosing BG 103 Heart Failure (Check EF%) (MARCELL's, B-Block, Diuretics) Digoxin, Lisinopril, Metolazone 2x/week, Toprol, Torsemide IV to PO Switch ? Protonix Home Meds Reviewed Triamcinolone topical cream, no strength, no location....will clarify Home Meds Not Ordered Warfarin-held intentionally Comments Digoxin level therapeutic, CHF w/EF 20%, Hx alcohol use-checking LFT's, Lactulose started for mentation watch daily weights w/CHF and diuretics MRI brain ordered (likely Monday), neurochecks
[2018-05-26] MEDS: Potassium Chloride 20 MEQ TABCR 40 MEQ PO (12:06)
[2018-05-26] MEDS: Torsemide 20 MG TAB PO (15:45)
--- NOTE | 2018-05-26 19:16 | PGE_ITS ---
Date of Service Date of service: 05/26/18 Time of Service: 14:10 Assessment and Plan (1) Altered mental status: Current visit: Yes Status: Acute Encephalopathy - due to hyperammonemia of hepatic encephalopathy +/- ? acute CVA. It is also possible that there is an infectious component (?cellulitis) or a tick borne illness. Check lyme titer. Continue lactulose. Monitor on tele. For echo/carotid dopplers/MRI/neuro consult on Monday (2) Non-sustained ventricular tachycardia: Current visit: Yes Status: Acute Not surprising considering Low EF. Continue to monitor on tele. Repeat echo pending. AICD should be strongly considered. (3) Congestive heart failure: Current visit: Yes Status: Chronic Biventricular CHF, with LVEF 20-25% - Stage C NYHA Class IV CHF by echo in 11/08. Repeat echo ordered. AICD should be considered. Continue current regimen of BB, ASA, and statin. ?ischemic w/u. Conitnue Torsemide with twice weekly Metolazone. (4) CKD (chronic kidney disease): Current visit: Yes Status: Chronic Continue to monitor Cr. (5) BUCKY (obstructive sleep apnea): Current visit: Yes Status: Chronic CPAP noncompliant. Reported significant history of PHTN. (6) Atrial fibrillation: Current visit: Yes Status: Chronic Continue BB and Digoxin, and monitor on telemetry. Coumadin on hold due to supratherapeutic INR. (7) Anticoagulated on warfarin: Current visit: Yes Status: Chronic Chronic anticoagulation with Coumadin, currently on hold due to Supratherapeutic INR. (8) DVT prophylaxis: Current visit: Yes Status: Acute Holding Coumadin with daily INR checks, currently elevated value. PPI for GI Prophylaxis. (9) Advanced directives, counseling/discussion: Current visit: Yes Status: Acute COLST to be reviewed. Full code. Subjective Interval history since last seen: Demar remains confused. He denies dizziness, complains of a little shortness of breath, denies any nausea/vomiting. His is in the room at the time of my exam and states that she saw the facial droop for the first time yesterday but that the patient's behavioral changes have been going on for about a week. She states his legs have been like that for a while and that he was previously seen by a technical translator for this and prescribed a cream. She stated at the time, the legs were not that red. Exam Narrative Exam Narrative: General: Middle aged male, giving short answers, confused Neurological: A&Ox1, confused, follows commands, no obvious focal deficits Psychiatric: calm, cooperative Skin: ?mild jaundice of facial skin; BLE chronic venous stasis dermatitis with cellulitis HEENT: EOMI, MMM Cardiovascular: RR, no m/r/g Lungs: mildly tachypneic Gastrointestinal: soft, nontender, nonndistended Extremities: skin exam as above; +1 BLE edema Objective Objective Clinical Data: Abnormal lab results 05/26/18 05/26/18 05/26/18 Range/Units 08:00 08:00 08:00 MCV 98.8 H (80-95) fL RDW 16.6 H (11.8-14.1) % Absolute Lymphocytes 1.02 L (1.2-3.4) k/cumm PT (9.3-10.8) sec INR (1.0-3.5) Potassium 3.4 L (3.5-5.1) mmol/L Carbon Dioxide 33.1 H (21.0-32.0) mmol/L BUN 54 H (7-18) mg/dL Creatinine 1.61 H (0.70-1.30) mg/dL Glucose 103 H (70-100) mg/dL Total Bilirubin 2.0 H (0.2-1.0) mg/dL Alkaline Phosphatase 204 H (46-116) U/L Ammonia 125 H (11-32) umol/L Albumin 2.7 L (3.4-5.0) g/dL 05/26/18 Range/Units 08:00 MCV (80-95) fL RDW (11.8-14.1) % Absolute Lymphocytes (1.2-3.4) k/cumm PT 42.3 H (9.3-10.8) sec INR 4.6 H* D (1.0-3.5) Potassium (3.5-5.1) mmol/L Carbon Dioxide (21.0-32.0) mmol/L BUN (7-18) mg/dL Creatinine (0.70-1.30) mg/dL Glucose (70-100) mg/dL Total Bilirubin (0.2-1.0) mg/dL Alkaline Phosphatase (46-116) U/L Ammonia (11-32) umol/L Albumin (3.4-5.0) g/dL Vital Signs Temperature 36.8 C 05/26/18 15:49 Temperature Source Tympanic 05/26/18 15:49 Pulse 76 05/26/18 16:37 Pulse Rhythm Irregular 05/26/18 15:40 Respiratory Rate 18 05/26/18 15:49 Respiratory Effort Non-Labored 05/26/18 15:40 Respiratory Depth Normal 05/26/18 15:40 Respiratory Pattern Normal 05/26/18 15:40 Blood Pressure 132/75 05/26/18 15:49 Blood Pressure Position Sitting 05/25/18 15:02 Pulse Oximetry 96 05/26/18 15:49 Oxygen Delivery Method Nasal Cannula 05/26/18 15:49 Oxygen Flow Rate 2 05/26/18 15:49 Pain Level 0 05/26/18 15:49 Intake & Output 05/25/18 05/26/18 05/26/18 23:59 11:59 23:59 Intake Total 1400 / 1400 240 / 240 240 / 240 Output Total 500 / 500 325 / 325 Balance 1400 / 1400 -260 / -260 -85 / -85 Weight 107.1 kg Intake: IV 920 / 920 Oral 480 / 480 240 / 240 240 / 240 Output: Urine 500 / 500 325 / 325 Other: Urine Color Yellow Yellow Urine Appearance Clear Clear Urine Odor Normal Normal Comment Void on toilet. pt voided in urinal, unseen by this nurse, reported by ECONOMIC DEVELOPER student Noted red on toilet paper, lexi blood from rectum, reports he has hemorrhoids. Pt didn't allow an in-depth assessment but not able to see visible hemorrhoids near rectum. Stool Characteristics Soft Brown Voiding Methods Toilet Toilet Laboratory Results WBC 5.90 k/cumm (4.4-10.8) 05/26/18 08:00 RBC 4.85 m/cumm (4.50-6.00) 05/26/18 08:00 Hgb 15.8 g/dL (13.5-17.5) 05/26/18 08:00 Hct 47.9 % (40.0-50.0) 05/26/18 08:00 MCV 98.8 fL (80-95) H 05/26/18 08:00 MCH 32.6 pg (27.0-33.0) 05/26/18 08:00 MCHC 33.0 g/dL (32.0-36.0) 05/26/18 08:00 RDW 16.6 % (11.8-14.1) H 05/26/18 08:00 Plt Count 218 x1000/uL (130-400) 05/26/18 08:00 MPV 10.3 fL (8.0-11.0) 05/26/18 08:00 Immature Gran % 0.2 05/26/18 08:00 Neutrophils % 69.7 05/26/18 08:00 Lymphocytes % 17.3 05/26/18 08:00 Monocytes % 11.2 05/26/18 08:00 Eosinophils % 0.8 05/26/18 08:00 Basophils % 0.8 05/26/18 08:00 Absolute Neutrophils 4.11 k/cumm (1.2-6.7) 05/26/18 08:00 Absolute Lymphocytes 1.02 k/cumm (1.2-3.4) L 05/26/18 08:00 Absolute Monocytes 0.66 k/cumm (0.11-0.7) 05/26/18 08:00 Absolute Eosinophils 0.05 k/cumm (0.0-0.7) 05/26/18 08:00 Absolute Basophils 0.05 k/cumm (0.0-0.2) 05/26/18 08:00 PT 42.3 sec (9.3-10.8) H 05/26/18 08:00 INR 4.6 (1.0-3.5) H* D 05/26/18 08:00 Sodium 139 mmol/L (136-145) 05/26/18 08:00 Potassium 3.4 mmol/L (3.5-5.1) L 05/26/18 08:00 Chloride 99 mmol/L (98-107) 05/26/18 08:00 Carbon Dioxide 33.1 mmol/L (21.0-32.0) H 05/26/18 08:00 Anion Gap 6.9 mmol/L (3-11) 05/26/18 08:00 BUN 54 mg/dL (7-18) H 05/26/18 08:00 Creatinine 1.61 mg/dL (0.70-1.30) H 05/26/18 08:00 Estimated GFR/1.73 m2 42.76 (mL/min/1.73m2) 05/26/18 08:00 Glucose 103 mg/dL (70-100) H 05/26/18 08:00 Calcium 8.7 mg/dL (8.5-10.1) 05/26/18 08:00 Magnesium 1.9 mg/dL (1.8-2.4) 05/25/18 15:16 Total Bilirubin 2.0 mg/dL (0.2-1.0) H 05/26/18 08:00 AST 16 U/L (15-37) 05/26/18 08:00 ALT 17 U/L (12-78) 05/26/18 08:00 Alkaline Phosphatase 204 U/L (46-116) H 05/26/18 08:00 Ammonia 125 umol/L (11-32) H 05/26/18 08:00 Troponin I 0.04 ng/mL (0.00-0.06) 05/26/18 08:00 Total Protein 7.7 g/dL (6.4-8.2) 05/26/18 08:00 Albumin 2.7 g/dL (3.4-5.0) L 05/26/18 08:00 Vitamin B12 738 pg/mL (193-986) 05/25/18 10:20 Folate 14.9 ng/mL (8.6-20.0) 05/25/18 10:20 TSH 2.85 uIU/mL (0.358-3.74) 05/25/18 15:16 Urine Color Yellow (Yellow) 05/25/18 15:49 Urine Clarity Clear 05/25/18 15:49 Urine pH 7.0 (5-8) 05/25/18 15:49 Ur Specific [place] 1.015 (1.005-1.025) 05/25/18 15:49 Urine Protein Negative mg/dL (Negative) 05/25/18 15:49 Urine Ketones Negative mg/dL (Negative) 05/25/18 15:49 Urine Blood Trace-lysed (Negative) H 05/25/18 15:49 Urine Nitrite Negative (Negative) 05/25/18 15:49 Urine Bilirubin Negative (Negative) 05/25/18 15:49 Urine Urobilinogen 0.2 EU/dL (Up TO 0.2) 05/25/18 15:49 Ur Leukocyte Esterase Negative (Negative) 05/25/18 15:49 Urine RBC 5-10 (0-2) H 05/25/18 15:49 Urine WBC 0-2 HPF (0-5) 05/25/18 15:49 Ur Epithelial Cells Negative HPF (Negative) 05/25/18 15:49 Urine Crystals Negative HPF (Negative) 05/25/18 15:49 Urine Bacteria Rare HPF (Negative) 05/25/18 15:49 Urine Casts Negative LPF (Negative) 05/25/18 15:49 Urine Mucus Negative (Negative) 05/25/18 15:49 Ur Culture Indicated? No 05/25/18 15:49 Urine Glucose Negative mg/dL (Negative) 05/25/18 15:49 Digoxin 1.10 ng/mL (0.90-2.00) 05/25/18 10:20
[2018-05-26] MEDS: Pantoprazole 40 MG VIAL IVP (20:08)
[2018-05-26] MEDS: Simvastatin 40 MG TAB PO (20:08)
[2018-05-26] MEDS: Normal Saline Flush 10 ML SYR IVP (20:09)
[2018-05-27] VITALS (7 sets, daily range): BP systolic 113–142; BP diastolic 60–78; PULSE 55–90; RESP 18–20; TEMP 36.1–36.6; O2SAT 96–98
[2018-05-27 07:30] LABS: Abs Immature Grans 0.01 k/cumm (0.0-0.09); Absolute Basophil Count 0.06 k/cumm (0.0-0.2); Absolute Lymphocyte Count 1.22 k/cumm (1.2-3.4); Absolute Monocyte Count 0.68 k/cumm (0.11-0.7); Absolute Neutrophil Count 5.14 k/cumm (1.2-6.7); Basophils % 0.8; Eosinophils % 1.4; HGB 15.9 g/dL (13.5-17.5); Immature Grans % 0.1; Lymphocytes % 16.9; Mean Corp. HGB Concentration 31.8 g/dL (32.0-36.0); Mean Corpuscular Hemoglobin 32.4 pg (27.0-33.0); Monocytes % 9.4; Neutrophils % 71.4; Platelet Count 221 x1000/uL (130-400); RBC Distribution Width 16.8 % (11.8-14.1); White Blood Cell Count 7.21 k/cumm (4.4-10.8)
[2018-05-27 07:40] LABS: Prothrombin Time 49.4 sec (9.3-10.8)
[2018-05-27 07:46] LABS: Ammonia 38 umol/L (11-32)
[2018-05-27 07:47] LABS: ALT 19 U/L (12-78); AST 30 U/L (15-37); Albumin 2.7 g/dL (3.4-5.0); Alkaline Phosphatase 202 U/L (46-116); Anion Gap 5.5 mmol/L (3-11); BUN 50 mg/dL (7-18); Bilirubin, Direct 1.08 mg/dL (0.00-0.20); Bilirubin, Total 2.6 mg/dL (0.2-1.0); CO2 35.5 mmol/L (21.0-32.0); Calcium 9.2 mg/dL (8.5-10.1); Chloride 97 mmol/L (98-107); Estimated GFR 40.16 (mL/min/1.73m2); Glucose 85 mg/dL (70-100); Magnesium 1.9 mg/dL (1.8-2.4); Potassium 3.8 mmol/L (3.5-5.1); Sodium 138 mmol/L (136-145)
[2018-05-27 08:01] LABS: INR 5.4 (1.0-3.5)
[2018-05-27] MEDS: Torsemide 20 MG TAB 40 MG PO (08:38)
[2018-05-27] MEDS: Metoprolol CR 50 MG TABCR PO (08:38)
[2018-05-27] MEDS: Lisinopril 5 MG TAB 2.5 MG PO (08:38)
[2018-05-27] MEDS: Lactulose 20 GM/30 ML CUP PO ×2 (08:38→20:10)
[2018-05-27] MEDS: Magnesium Oxide 400 MG TAB PO ×2 (08:38→20:10)
[2018-05-27] MEDS: Metolazone 2.5 MG TAB 5 MG PO (08:39)
[2018-05-27] MEDS: Allopurinol 300 MG TAB PO (08:39)
[2018-05-27] MEDS: Digoxin 0.125 MG TAB PO (08:39)
[2018-05-27] MEDS: Potassium Chloride 10 MEQ CAPCR PO (08:39)
[2018-05-27] MEDS: Phytonadione 5 MG TABLET PO (11:02)
--- NOTE | 2018-05-27 11:13 | DI.VRAD_ITS ---
EXAM: CT Abdomen and Pelvis Without Intravenous Contrast EXAM DATE/TIME: 05/27/2018 9:37 AM CLINICAL HISTORY: 68 years old, male; Signs and symptoms; Other: Hepatic encephalopathy, ? cirrh ? cirrhosis, ? ascites; Patient HX: Hepatic encephalopathy, ? cirrhosis, ? ascites TECHNIQUE: Axial computed tomography images of the abdomen and pelvis without intravenous contrast. All CT scans at this facility use at least one of these dose optimization techniques: automated exposure control; mA and/or kV adjustment per patient size (includes targeted exams where dose is matched to clinical indication); or iterative reconstruction. Coronal and sagittal reformatted images were created and reviewed. COMPARISON: No relevant prior studies available. FINDINGS: Lower thorax: Cardiomegaly Mild right pleural effusion. Smaller left pleural effusion. ABDOMEN: Liver: Lobulated liver may reflect cirrhosis. Liver measures 14 cm in the craniocaudal dimension and 24 cm in anterior posterior dimension. Gallbladder and bile ducts: Gallstones in the gallbladder. Pancreas: Normal. No ductal dilation. Spleen: Normal. No splenomegaly. Adrenals: Normal. No mass. Kidneys and ureters: Normal. No hydronephrosis. Stomach and bowel: Normal. No obstruction. No mucosal thickening. Appendix: Normal appendix PELVIS: Bladder: Unremarkable as visualized. Reproductive: The prostate is enlarged, greater than 5 cm. ABDOMEN and PELVIS: Intraperitoneal space: No significant ascites. Bones/joints: No acute fracture. No dislocation. Soft tissues: Unremarkable. Vasculature: Normal. No abdominal aortic aneurysm. Lymph nodes: Normal. No enlarged lymph nodes. IMPRESSION: 1. Mild right pleural effusion. Smaller left pleural effusion. 2. Lobulated liver may reflect cirrhosis. Liver measures 14 cm in the craniocaudal dimension and 24 cm in anterior posterior dimension. 3. Gallstones in the gallbladder. 4. No significant ascites. 5. The prostate is enlarged, greater than 5 cm. Recommend urology consult Dictated and Authenticated by: Len Walker MD. Ordering:FRIDA TAYLOR MD
--- NOTE | 2018-05-27 11:31 | DI.CT_ITS ---
SYMPTOM/DIAGNOSIS: HEPATIC ENCEPHALOPATHY, ? CIRRHOSIS, ? ASCITES CT ABDOMEN AND PELVIS Noncontrast examination was performed. No priors for comparison. There are small bilateral pleural effusions, right greater than left. The liver is within normal limits in size. There is a lobulated contour of the liver suggesting hepatic cirrhosis. Lack of contrast does limit evaluation of the abdominal, pelvic organs. There are gallstones present. No biliary ductal dilatation. The unenhanced pancreas, spleen and adrenal glands are unremarkable. The kidneys show no evidence of nephrolithiasis or hydronephrosis. The urinary bladder is intact. The prostate gland appears enlarged. There is atherosclerosis of the abdominal aorta but no aneurysmal dilatation. No significant abdominal or pelvic adenopathy or pneumoperitoneum is present. No significant abdominal or pelvic ascites is seen. The bowel shows no evidence of obstruction or inflammation. No findings to suggest an acute appendicitis are present. Degenerative changes are present in the spine. IMPRESSION: 1. Lobulated contour of the liver raising the question of hepatic cirrhosis. 2. No significant abdominal or pelvic ascites 3. Small bilateral pleural effusions, right greater than left. 4. Cholelithiasis 5. Prostate gland enlargement. Urology consult may be considered.
[2018-05-27] MEDS: Torsemide 20 MG TAB PO (16:13)
--- NOTE | 2018-05-27 17:51 | PDOC.CMPRO ---
Care Management Progress Note S/O: Demar was lying in his bed, near the side with his oxygen on. He remains on telemetry, IVF and IV ABX at this time. He reported doing ok. He was not overly forthcoming with information and answered with short words such as guess so pretty much not sure. He stated things were going fine at home and confirmed he would not be interested in SNF stay. He was agreeable to [facility] services upon discharge. A: 68 year old male admitted to [facility] 05/25/18 for AMS P: Demar will return home when ready per MD at he and his 's wishes. He will likely have new orders for [facility] RN/PT/OT/HAND DRAWER IN and referral for oversight to CCC: Dali Samaniego at [facility]. 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 CM will continue to follow and support discharge planning considerations.
--- NOTE | 2018-05-27 18:03 | CMPROGNOTE_ITS ---
Care Management Progress Note S/O: Demar was lying in his bed, near the side with his oxygen on. He remains on telemetry, IVF and IV ABX at this time. He reported doing ok. He was not overly forthcoming with information and answered with short words such as guess so pretty much not sure. He stated things were going fine at home and confirmed he would not be interested in SNF stay. He was agreeable to [facility]/ [facility] services upon discharge. A: 68 year old male admitted to [facility] 05/25/18 for AMS P: Demar will return home when ready per MD at he and his 's wishes. He will likely have new orders for [facility] RN/PT/OT/ENROLLMENT SERVICES DEAN and referral for oversight to CCC: Dali Samaniego at [facility]. 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 CM will continue to follow and support discharge planning considerations.
--- NOTE | 2018-05-27 19:01 | PGE_ITS ---
Date of Service Date of service: 05/27/18 Time of Service: 14:45 Assessment and Plan (1) Altered mental status: Current visit: Yes Status: Acute Due to hepatic encephalopathy +/- ?acute CVA. CT abdomen suggestive of cirrhosis. Hepatitis panel ordered, though this could be cardiac cirrhosis/ patient does have a history of distant alcohol abuse. Decrease lactulose to BID (patient is having >6 BM's/day). Monitor on tele. For echo/carotid dopplers/MRI/neuro consult on Monday (2) Non-sustained ventricular tachycardia: Current visit: Yes Status: Acute Not surprising considering Low EF. Continue to monitor on tele and monitor lytes. Repeat echo pending. AICD should be strongly considered. (3) Congestive heart failure: Current visit: Yes Status: Chronic Biventricular CHF, with LVEF 20-25% - Stage C NYHA Class IV CHF by echo in 11/08. Repeat echo ordered. AICD should be considered. Continue current regimen of BB, ASA, and statin. ?ischemic w/u. Conitnue Torsemide with twice weekly Metolazone. (4) CKD (chronic kidney disease): Current visit: Yes Status: Chronic Continue to monitor Cr. (5) BUCKY (obstructive sleep apnea): Current visit: Yes Status: Chronic CPAP noncompliant. Reported significant history of PHTN. (6) Atrial fibrillation: Current visit: Yes Status: Chronic Continue BB and Digoxin, and monitor on telemetry. Coumadin on hold due to supratherapeutic INR (received vitamin K today) (7) Anticoagulated on warfarin: Current visit: Yes Status: Chronic Chronic anticoagulation with Coumadin, currently on hold due to Supratherapeutic INR. (8) DVT prophylaxis: Current visit: Yes Status: Acute Holding Coumadin with daily INR checks, currently elevated value. PPI for GI Prophylaxis. (9) Advanced directives, counseling/discussion: Current visit: Yes Status: Acute COLST to be reviewed. Full code. Subjective Interval history since last seen: Per and nursing, the patient is much more coherent/lucid today. He denies any dizziness, chest pain, shortness of breath, nausea, vomiting. Exam Narrative Exam Narrative: General: Obese Middle aged male, laying in bed, confused but more awake/focused Neurological: A&Ox2, confused, follows commands, no obvious focal deficits Psychiatric: calm, cooperative Skin: facial jaundice, telangienctasias, acral cyanosis of the nose (chronic) HEENT: EOMI, MMM, scleral icterus Cardiovascular: RR, no m/r/g Lungs: CTAB Gastrointestinal: soft, nontender, nonndistended Extremities: skin exam as above; +1 BLE edema Objective Objective Clinical Data: Abnormal lab results 05/27/18 05/27/18 05/27/18 Range/Units 07:15 07:15 07:15 MCV (80-95) fL MCHC (32.0-36.0) g/dL RDW (11.8-14.1) % PT 49.4 H (9.3-10.8) sec INR 5.4 H* D (1.0-3.5) Chloride 97 L (98-107) mmol/L Carbon Dioxide 35.5 H (21.0-32.0) mmol/L BUN 50 H (7-18) mg/dL Creatinine 1.70 H (0.70-1.30) mg/dL Total Bilirubin 2.6 H (0.2-1.0) mg/dL Conjugated Bilirubin 1.08 H (0.00-0.20) mg/dL Alkaline Phosphatase 202 H (46-116) U/L Ammonia 38 H (11-32) umol/L Albumin 2.7 L (3.4-5.0) g/dL 05/27/18 Range/Units 07:15 MCV 102.0 H D (80-95) fL MCHC 31.8 L (32.0-36.0) g/dL RDW 16.8 H (11.8-14.1) % PT (9.3-10.8) sec INR (1.0-3.5) Chloride (98-107) mmol/L Carbon Dioxide (21.0-32.0) mmol/L BUN (7-18) mg/dL Creatinine (0.70-1.30) mg/dL Total Bilirubin (0.2-1.0) mg/dL Conjugated Bilirubin (0.00-0.20) mg/dL Alkaline Phosphatase (46-116) U/L Ammonia (11-32) umol/L Albumin (3.4-5.0) g/dL Vital Signs Temperature 36.6 C 05/27/18 16:36 Temperature Source Tympanic 11/04/18 16:36 Pulse 69 05/27/18 16:36 Pulse Rhythm Irregular 05/27/18 17:46 Respiratory Rate 19 05/27/18 16:36 Respiratory Effort 05/27/18 17:46 Respiratory Depth Shallow 05/27/18 17:46 Respiratory Pattern Normal 05/27/18 17:46 Blood Pressure 113/78 05/27/18 16:36 Blood Pressure Position Sitting 05/25/18 15:02 Pulse Oximetry 97 05/27/18 16:36 Oxygen Delivery Method Nasal Cannula 05/27/18 16:36 Oxygen Flow Rate 2 05/27/18 16:36 Pain Level 0 05/26/18 15:49 Intake & Output 05/27/18 05/27/18 05/27/18 00:59 11:59 23:59 Intake Total 360 / 360 Output Total Balance 360 / 360 Intake: IV Oral 360 / 360 Output: Urine Other: Urine Color Yellow Urine Appearance Clear Urine Odor Normal Comment Stool Size Moderate Stool Characteristics Formed Brown Voiding Methods Toilet Laboratory Results WBC 7.21 k/cumm (4.4-10.8) 05/27/18 07:15 RBC 4.90 m/cumm (4.50-6.00) 05/27/18 07:15 Hgb 15.9 g/dL (13.5-17.5) 05/27/18 07:15 Hct 50.0 % (40.0-50.0) 05/27/18 07:15 MCV 102.0 fL (80-95) H D 05/27/18 07:15 MCH 32.4 pg (27.0-33.0) 05/27/18 07:15 MCHC 31.8 g/dL (32.0-36.0) L 05/27/18 07:15 RDW 16.8 % (11.8-14.1) H 05/27/18 07:15 Plt Count 221 x1000/uL (130-400) 05/27/18 07:15 MPV 10.0 fL (8.0-11.0) 05/27/18 07:15 Immature Gran % 0.1 05/27/18 07:15 Neutrophils % 71.4 05/27/18 07:15 Lymphocytes % 16.9 05/27/18 07:15 Monocytes % 9.4 05/27/18 07:15 Eosinophils % 1.4 05/27/18 07:15 Basophils % 0.8 05/27/18 07:15 Absolute Neutrophils 5.14 k/cumm (1.2-6.7) 05/27/18 07:15 Absolute Lymphocytes 1.22 k/cumm (1.2-3.4) 05/27/18 07:15 Absolute Monocytes 0.68 k/cumm (0.11-0.7) 05/27/18 07:15 Absolute Eosinophils 0.10 k/cumm (0.0-0.7) 05/27/18 07:15 Absolute Basophils 0.06 k/cumm (0.0-0.2) 05/27/18 07:15 PT 49.4 sec (9.3-10.8) H 05/27/18 07:15 INR 5.4 (1.0-3.5) H* D 05/27/18 07:15 Sodium 138 mmol/L (136-145) 05/27/18 07:15 Potassium 3.8 mmol/L (3.5-5.1) 05/27/18 07:15 Chloride 97 mmol/L (98-107) L 05/27/18 07:15 Carbon Dioxide 35.5 mmol/L (21.0-32.0) H 05/27/18 07:15 Anion Gap 5.5 mmol/L (3-11) 05/27/18 07:15 BUN 50 mg/dL (7-18) H 05/27/18 07:15 Creatinine 1.70 mg/dL (0.70-1.30) H 05/27/18 07:15 Estimated GFR/1.73 m2 40.16 (mL/min/1.73m2) 05/27/18 07:15 Glucose 85 mg/dL (70-100) 05/27/18 07:15 Calcium 9.2 mg/dL (8.5-10.1) 05/27/18 07:15 Magnesium 1.9 mg/dL (1.8-2.4) 05/27/18 07:15 Total Bilirubin 2.6 mg/dL (0.2-1.0) H 05/27/18 07:15 Conjugated Bilirubin 1.08 mg/dL (0.00-0.20) H 05/27/18 07:15 AST 30 U/L (15-37) 05/27/18 07:15 ALT 19 U/L (12-78) 05/27/18 07:15 Alkaline Phosphatase 202 U/L (46-116) H 05/27/18 07:15 Ammonia 38 umol/L (11-32) H 05/27/18 07:15 Troponin I 0.04 ng/mL (0.00-0.06) 05/26/18 08:00 Total Protein 8.0 g/dL (6.4-8.2) 05/27/18 07:15 Albumin 2.7 g/dL (3.4-5.0) L 05/27/18 07:15 Vitamin B12 738 pg/mL (193-986) 05/25/18 10:20 Folate 14.9 ng/mL (8.6-20.0) 05/25/18 10:20 TSH 2.85 uIU/mL (0.358-3.74) 05/25/18 15:16 Urine Color Yellow (Yellow) 05/25/18 15:49 Urine Clarity Clear 05/25/18 15:49 Urine pH 7.0 (5-8) 05/25/18 15:49 Ur Specific [place] 1.015 (1.005-1.025) 05/25/18 15:49 Urine Protein Negative mg/dL (Negative) 05/25/18 15:49 Urine Ketones Negative mg/dL (Negative) 05/25/18 15:49 Urine Blood Trace-lysed (Negative) H 05/25/18 15:49 Urine Nitrite Negative (Negative) 05/25/18 15:49 Urine Bilirubin Negative (Negative) 05/25/18 15:49 Urine Urobilinogen 0.2 EU/dL (Up TO 0.2) 05/25/18 15:49 Ur Leukocyte Esterase Negative (Negative) 05/25/18 15:49 Urine RBC 5-10 (0-2) H 05/25/18 15:49 Urine WBC 0-2 HPF (0-5) 05/25/18 15:49 Ur Epithelial Cells Negative HPF (Negative) 05/25/18 15:49 Urine Crystals Negative HPF (Negative) 05/25/18 15:49 Urine Bacteria Rare HPF (Negative) 05/25/18 15:49 Urine Casts Negative LPF (Negative) 05/25/18 15:49 Urine Mucus Negative (Negative) 05/25/18 15:49 Ur Culture Indicated? No 05/25/18 15:49 Urine Glucose Negative mg/dL (Negative) 05/25/18 15:49 Digoxin 1.10 ng/mL (0.90-2.00) 05/25/18 10:20
[2018-05-27] MEDS: Pantoprazole 40 MG VIAL IVP (20:10)
[2018-05-27] MEDS: Simvastatin 40 MG TAB PO (20:10)
[2018-05-27] MEDS: Normal Saline Flush 10 ML SYR IVP (20:11)
[2018-05-28] VITALS (12 sets, daily range): BP systolic 92–131; BP diastolic 56–81; PULSE 51–96; RESP 18–19; TEMP 35.6–36.8; O2SAT 94–97
--- NOTE | 2018-05-28 07:00 | DI.US_ITS ---
SYMPTOM/DIAGNOSIS: F/O CVA CAROTID ULTRASOUND: Routine examination was performed. There is moderate calcific plaque seen in the proximal right internal carotid artery. No hemodynamically significant velocity elevations are present. Vertebral artery velocity is within normal limits. There is antegrade flow in the vertebral artery. No hemodynamically significant velocity elevations are seen in the internal carotid artery on the left. The left vertebral artery velocities are within normal limits. There is antegrade flow in the left vertebral artery. IMPRESSION: No evidence of a hemodynamically significant cervical carotid artery stenosis.
[2018-05-28 07:35] LABS: Ammonia 69 umol/L (11-32)
[2018-05-28 07:38] LABS: Prothrombin Time 38.3 sec (9.3-10.8)
[2018-05-28 07:39] LABS: INR 4.1 (1.0-3.5)
[2018-05-28 07:41] LABS: ALT 18 U/L (12-78); AST 36 U/L (15-37); Albumin 2.6 g/dL (3.4-5.0); Alkaline Phosphatase 192 U/L (46-116); Anion Gap 5.4 mmol/L (3-11); BUN 55 mg/dL (7-18); Bilirubin, Direct 0.73 mg/dL (0.00-0.20); Bilirubin, Total 1.9 mg/dL (0.2-1.0); CO2 34.6 mmol/L (21.0-32.0); CREATININE 1.72 mg/dL (0.70-1.30); Calcium 8.9 mg/dL (8.5-10.1); Chloride 95 mmol/L (98-107); Estimated GFR 39.62 (mL/min/1.73m2); Glucose 93 mg/dL (70-100); Magnesium 1.8 mg/dL (1.8-2.4); Potassium 3.2 mmol/L (3.5-5.1); Sodium 135 mmol/L (136-145); Total Protein 7.5 g/dL (6.4-8.2)
--- NOTE | 2018-05-28 07:50 | MERGE_ITS ---
*[facility]* *[facility]* [address] [place] [address] Date of study: 05/28/2018 Transthoracic Echocardiography M-mode, complete 2D, complete spectral Doppler, and color Doppler *STUDY CONCLUSIONS* Summary: 1. Left ventricle: The cavity size was normal. Systolic function was severely reduced. The estimated ejection fraction was 25-30%. Diffuse hypokinesis. 2. Ventricular septum: The contour showed diastolic flattening and systolic flattening. These changes are consistent with RV volume and RV pressure overload. 3. Mitral valve: There was mild regurgitation. 4. Right ventricle: The cavity size was severely dilated. Systolic function was severely reduced. 5. Right atrium: The atrium was severely dilated. 6. Atrial septum: No defect or patent foramen ovale was identified. 7. Tricuspid valve: There was severe regurgitation. 8. Pulmonary arteries: Pulmonary systolic pressure was in the range of 65mm Hg to 75mm Hg. 9. Inferior vena cava: The vessel was patent and mildly dilated. The respirophasic diameter changes were blunted (less than 50%), consistent with normal central venous pressure. *PATIENT PRESENTATION* Height: 175.3cm ((69in) ) S/D Pressure: 117 / 73 Weight: 107kg ((235.5lb) ) BSA: 2.32m^2 Test start time: 08:00 AM. Test stop time: 08:50 AM. PERFORMING Unknown PERFORMING [facility] ANGLESMITH Camila Sanches RT (R)(CT), RDCS REFERRING Md Gio Trevizo ORDERING Meri Cardozo REFERRING Meri Cardozo *PROCEDURE DATA* Procedure information: The patient was identified by two identifiers. This study was interpreted by [facility]. Pertinent images and digital data are archived for permanent storage and are available for subsequent review. Comparison was made to the study of 11/01/2017. Study status: Routine. Transthoracic echocardiography. M-mode, complete 2D, complete spectral Doppler, and color Doppler. A Transthoracic Echocardiogram was performed. Scanning was performed from the parasternal, apical, subcostal, and suprasternal notch acoustic windows. Images were obtained using an [id number] cardiac ultrasound machine. Image quality was adequate. Study completion: The patient tolerated the procedure well. History: PMH: R/o CVA. *CARDIAC ANATOMY* Left ventricle: The cavity size was normal. Systolic function was severely reduced. The estimated ejection fraction was 25-30%. Diffuse hypokinesis. The tissue Doppler parameters were normal. There was no evidence of elevated ventricular filling pressure by Doppler parameters. Aortic valve: Trileaflet. Doppler: There was no stenosis. There was mild regurgitation. VTI ratio of LVOT to aortic valve: 0.85. Valve area (VTI): 2.7cm^2. Indexed valve area (VTI): 1.1cm^2/m^2. Peak velocity ratio of LVOT to aortic valve: 0.75. Valve area (Vmax): 2.4cm^2. Indexed valve area (Vmax): 1cm^2/m^2. Mean velocity ratio of LVOT to aortic valve: 0.76. Valve area (Vmean): 2.4cm^2. Indexed valve area (Vmean): 1cm^2/m^2. Mean gradient (S): 2.2mm Hg. Peak gradient (S): 3.6mm Hg. Aorta: Aortic root: The aortic root was normal in size. Mitral valve: Doppler: There was no evidence for stenosis. There was mild regurgitation. Peak gradient (D): 2.6mm Hg. Left atrium: The atrium was at the upper limits of normal in size. Atrial septum: No defect or patent foramen ovale was identified. Right ventricle: The cavity size was severely dilated. Systolic function was severely reduced. Ventricular septum: The contour showed diastolic flattening and systolic flattening. These changes are consistent with RV volume and RV pressure overload. Pulmonic valve: Doppler: There was no evidence for stenosis. There was mild regurgitation. Peak gradient (S): 1.4mm Hg. Tricuspid valve: Doppler: There was severe regurgitation. Pulmonary artery: Poorly visualized. Pulmonary systolic pressure was in the range of 65mm Hg to 75mm Hg. Right atrium: The atrium was severely dilated. Pericardium: There was no pericardial effusion. Systemic veins: Inferior vena cava: Well visualized. The vessel was patent and mildly dilated. The respirophasic diameter changes were blunted (less than 50%), consistent with normal central venous pressure. Baseline ECG: Atrial fibrillation. Measurements Left ventricle Value 11/01/2017 Reference LV ID, ED, PLAX 5.5 cm 5.5 3.5 - 6.0 LV ID, ES, PLAX (H) 4.8 cm 5.0 2.1 - 4.0 LV PW thickness, ED, PLAX 1.1 cm 1.2 LV end-diastolic volume, 119 ml 119 1-p A2C LV ejection fraction, 1-p 21 % 25 A2C LV end-diastolic volume, 85 ml 105 1-p A4C LV ejection fraction, 1-p 27 % 20 A4C LV e', lateral 0.126 m/sec LV E/e', lateral 6 LV e', medial 0.08 m/sec 0.094 LV E/e', medial 10 9 LV e', average 0.103 m/sec LV E/e', average 8 Ventricular septum Value 11/01/2017 Reference IVS thickness, ED, PLAX 1.1 cm 1.2 LVOT Value 11/01/2017 Reference LVOT ID, A-P 2.0 cm 2.0 LVOT area 3.1 cm^2 3.3 LVOT peak velocity, S 0.72 m/sec 0.82 LVOT mean velocity, S 0.55 m/sec 0.57 LVOT VTI, S 14.5 cm 15.2 LVOT peak gradient, S 2.1 mm Hg 2.7 LVOT mean gradient, S 1.3 mm Hg 1.5 Stroke volume (SV), LVOT 45 ml 49 DP Stroke index (SV/bsa), 20 ml/m^2 21 LVOT DP Aortic valve Value 11/01/2017 Reference Aortic valve peak 0.9 m/sec 1.1 velocity, S Aortic valve mean 0.72 m/sec 0.88 velocity, S Aortic valve VTI, S 17.0 cm 20.8 Aortic mean gradient, S 2.2 mm Hg 3.2 Aortic peak gradient, S 3.6 mm Hg VTI ratio, LVOT/AV 0.85 0.73 Aortic valve area, VTI 2.7 cm^2 2.4 Velocity ratio, peak, 0.75 0.74 LVOT/AV Aortic valve area, peak 2.4 cm^2 2.4 velocity Velocity ratio, mean, 0.76 0.65 LVOT/AV Aortic valve area, mean 2.4 cm^2 2.1 velocity Aortic valve area/bsa, 1 cm^2/m^2 0.9 mean velocity Aorta Value 11/01/2017 Reference Aortic root ID, ED 3.0 cm 3.1 RVOT Value 11/01/2017 Reference RVOT VTI, S 8.6 cm 10.2 Left atrium Value 11/01/2017 Reference LA ID, A-P, ES 5.5 cm 4.9 LA ID/bsa, A-P (H) 2.4 cm/m^2 2.1 <=2.2 LA area, ES, A4C 23 cm^2 18.5 8.8 - 23.4 LA area, ES, A2C 22 cm^2 17 LA volume/bsa, ES, 1-p A4C 32 ml/m^2 22 LA volume, ES, 2-p 77 ml 49 LA volume/bsa, ES, 2-p 33 ml/m^2 21 LA/aortic root ratio 1.84 1.6 Mitral valve Value 11/01/2017 Reference Mitral E-wave peak 0.81 m/sec 0.88 velocity Mitral peak gradient, D 2.6 mm Hg 3.1 Tricuspid valve Value 11/01/2017 Reference Tricuspid regurg peak 3.4 m/sec 4.3 velocity Tricuspid peak RV-RA 45.3 mm Hg 75 gradient Right atrium Value 11/01/2017 Reference RA area, ES, A4C (H) 50.3 cm^2 42.3 8.3 - 19.5 Pulmonic valve Value 11/01/2017 Reference Pulmonic peak gradient, S 1.4 mm Hg Legend: (L) and (H) prasad values outside specified reference range. I have personally reviewed the images and have reviewed and edited the reported findings. Electronically signed by Wil Powers MD 05/28/2018 15:47
[2018-05-28] MEDS: Lactulose 20 GM/30 ML CUP PO ×3 (09:14→19:46)
[2018-05-28] MEDS: Digoxin 0.125 MG TAB PO (09:15)
[2018-05-28] MEDS: Magnesium Oxide 400 MG TAB PO ×2 (09:16→19:47)
[2018-05-28] MEDS: Lisinopril 5 MG TAB 2.5 MG PO (09:16)
[2018-05-28] MEDS: Allopurinol 300 MG TAB PO (09:16)
[2018-05-28] MEDS: Torsemide 20 MG TAB 40 MG PO (09:16)
[2018-05-28] MEDS: Metoprolol CR 50 MG TABCR PO (09:16)
[2018-05-28] MEDS: Potassium Chloride 10 MEQ CAPCR PO (09:16)
[2018-05-28 11:08] LABS: Lyme Ab w Rflx to Lyme Confirm Negative
--- NOTE | 2018-05-28 11:55 | DI.MRI_ITS ---
SYMPTOMS/DIAGNOSIS: ALTERED MENTAL STATUS, ? CVA MRI OF THE BRAIN: Routine noncontrast MRI of the brain was performed. There is patient motion artifact present. There is cerebral atrophy consistent with the patient's age. There are areas of T 2 hyperintensity in the white matter consistent with small vessel ischemic disease. No intracranial mass, acute midline shift or mass effect is identified. The ventricles are intact. The basilar cisterns are patent. The diffusion weighted images show no evidence of an acute infarct. No intracranial hemorrhage is seen. The visualized paranasal sinuses are clear. The orbits and retro-orbital soft tissues appear grossly unremarkable. IMPRESSION: 1. Study limitations due to patient motion artifact. 2. Cerebral atrophy and small vessel ischemic disease. 3. No evidence of an acute infarct or hemorrhage. MRA OF THE [place]: Routine examination was performed. The distal internal carotid arteries are unremarkable without occlusion, significant stenosis or aneurysm. The anterior cerebral arteries are unremarkable without occlusion, significant stenosis or aneurysm. The right middle cerebral artery is unremarkable without occlusion, significant stenosis or aneurysm. There is moderate narrowing of the distal M1 segment of the left middle cerebral artery. The basilar artery is unremarkable without occlusion, significant stenosis or aneurysm. The posterior cerebral arteries are unremarkable without occlusion, aneurysm or significant stenosis. IMPRESSION: Moderate narrowing of the distal M1 segment of the left middle cerebral artery.
[2018-05-28] MEDS: Potassium Chloride 20 MEQ TABCR 40 MEQ PO ×2 (12:37→19:47)
--- NOTE | 2018-05-28 14:06 | W.NEUROCONSU ---
Date of service: 05/28/18 Time of Service: 14:06 Assessment and Plan (1) Altered mental status: Current visit: Yes Status: Acute Mr. Malik is a 68-year-old man of unknown handedness with a past medical history of viral biventricular cardiomyopathy, CHF, A. fib, obstructive sleep apnea, chronic kidney disease, and liver disease who was admitted for altered mental status. There was a question of focal neurological deficits, namely face weakness of unknown duration despite being adequately anticoagulated. He does not have any focal neurological deficits at this time. An MRI brain was performed today. The unofficial reading shows no evidence of acute or subacute infarct. His altered mental status seems to be metabolic in nature. He has not had any seizure activity and does not have any known risk factors for seizures. Continue treatment of his liver disease. Please call with any further questions or concerns. DISCLAIMER: This note was created using [employer] voice recognition software. History of Present Illness Chief Complaint: face weakness, transient Narrative: Handedness: unknown. HPI: Mr. Malik is an 68-year-old man with a past medical history of atrial fibrillation on Coumadin, viral biventricular cardiomyopathy and CHF with resultant liver disease, obstructive sleep apnea intolerant of CPAP, and chronic kidney disease. He consulted with palliative care last month. He has generally not been interested in extensive workups or treatments. He was brought to the ER by his on 05/25/18 for 1 week of increasing altered mental status. At some point during that week the patient was noted to have a facial droop, though we do not know which side this occurred on or for what duration. He has not had any focal neurological signs while in the hospital. Upon admission, he was noted to have an ammonia level of 151. This has since gone down to 69. He had an unremarkable UA and digoxin level. His INR upon admission was 3.8. Creatinine was stable with his baseline at 1.6-1.7. His sodium has been stable at 135. His T bili and alk phos are elevated but stable. AST and ALT are normal. He had a normal B12 and TSH. Tick panel is pending. He had a CT head which I was able to review and was also normal. He has had slight improvement of his mental status since admission but continues to wax and wane. He underwent an MRI brain MRA head which I was able to review. The official report is pending. There is no evidence of an acute infarct. He has a few scattered T2 white matter hyperintensities consistent with chronic small vessel disease. MRA head was unremarkable. Consults Requesting physician: Meri Cardozo Review of Systems Review of Systems All systems reviewed & are unremarkable except as noted in HPI and below PFSH Family History Brother Heart disease Grandfather No problems noted. Grandfather No problems noted. Mother Diabetes Alcohol abuse Father Alcohol abuse Grandmother Diabetes Grandmother No problems noted. 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) Sleep apnea (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) Hyperlipidemia (Chronic 03/20/13) History of alcoholism (Chronic) Family hx of alcoholism (Chronic) History of tobacco use (Chronic) Gout (Chronic 03/03/14) Facial dermatitis (Chronic 04/17/17) Disorder of lung (Acute 11/14/12) Chronic venous stasis dermatitis of both lower extremities (Chronic 10/24/17) Atrial fibrillation (Chronic 03/03/14) Anticoagulated on warfarin (Chronic) Social History household members: spouse housing: house lives independently: No (pt doesn't drive, meals done ahead if will be alone) current occupational status: retired pets and animals: Yes (cat is currently missing) pets and animals: cat(s) frequency: daily Smoking/Tobacco Use Status: Former Tobacco Use how long ago did patient quit smoking: QUIT 04/06/2005 alcohol intake: never details: Unknown substance use type: does not use special uriah needs: No seatbelt use: always drive intox or ride w/ intox security patrol driver: No working smoke detector in home: Yes fire extinguisher in home: Yes carbon monox detector in home: Yes firearms in home: No Surgical History Extraction of cataract (02/18/16) 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) Visit Medication and Allergies Active Medications Generic Name Dose Route Start Last Admin Trade Name Freq PRN Reason Stop Dose Admin Al Hydrox/Mg Hydrox/Simethicone 30 ml 05/25/18 17:58 Mylanta Liquid PO Q2H PRN PRN Albuterol/Ipratropium 3 ml 05/25/18 17:58 Duoneb Updraft UPD Q6H PRN PRN Allopurinol 300 mg 05/26/18 08:30 05/28/18 09:16 Zyloprim PO 300 mg DAILY RAJNI Administration Digoxin 0.125 mg 05/26/18 08:30 05/28/18 09:15 Lanoxin PO 0.125 mg DAILY RAJNI Administration Dimethicone/Zinc Oxide 0 gm 05/25/18 17:58 Annia Protect Cream TP PRN PRN Docusate Sodium 100 mg 05/25/18 17:58 Colace PO TID PRN PRN Ceftriaxone Sodium/Dextrose 1 gm in 50 mls @ 100 mls/hr 05/26/18 20:00 05/27/18 20:14 Rocephin IVPB 100 mls/hr Q24H RAJNI Administration IV Miscellaneous Supplies 1 each 05/25/18 15:15 IV DIRECTED RAJNI Lactulose 20 gm 05/28/18 14:00 Cephulac PO TID RAJNI Lisinopril 2.5 mg 05/26/18 08:30 05/28/18 09:16 Prinivil PO 2.5 mg DAILY RAJNI Administration Magnesium Hydroxide 30 ml 05/25/18 17:58 Milk Of Magnesia PO DAILY PRN PRN Magnesium Oxide 400 mg 05/25/18 20:00 05/28/18 09:16 Mag-Ox 400 PO 400 mg BID RAJNI Administration Metolazone 5 mg 05/27/18 08:30 05/27/18 08:39 Zaroxolyn PO 5 mg SuTh@0830 RAJNI Administration Metoprolol Succinate 50 mg 05/26/18 08:30 05/28/18 09:16 Toprol Xl PO 50 mg DAILY RAJNI Administration Mupirocin 0 gm 05/25/18 17:53 Bactroban 2% Cream TP BID PRN PRN Pantoprazole Sodium 40 mg 05/25/18 20:00 05/27/18 20:10 Protonix Injection IVP 40 mg Q24H RAJNI Administration Pt's Own 0 each 05/26/18 20:00 05/28/18 09:18 Triamcinolone Cream TP Not Given BID RAJNI Polyethylene Glycol 17 gm 05/25/18 17:58 Miralax PO DAILY PRN PRN Constipation Potassium Chloride 10 meq 05/26/18 08:30 05/28/18 09:16 Micro-K 10 PO 10 meq DAILY RAJNI Administration Potassium Chloride 40 meq 05/28/18 08:30 05/28/18 12:37 K-Dur PO 05/29/18 08:31 40 meq BID RAJNI Administration Simvastatin 40 mg 05/25/18 20:00 05/27/18 20:10 Zocor PO 40 mg QPM RAJNI Administration Sodium Chloride 0 ml 05/25/18 22:00 05/27/18 20:11 Saline Flush 10 Ml Syringe IVP 20 ml PRN PRN Administration Tiotropium [place] 1 cap 05/26/18 08:30 05/28/18 09:17 Spiriva Handihaler IH 1 cap DAILY RAJNI Administration Torsemide 40 mg 05/26/18 08:30 05/28/18 09:16 Demadex PO 40 mg QAM RAJNI Administration Torsemide 20 mg 05/26/18 16:00 05/27/18 16:13 Demadex PO 20 mg DAILY@1600 RAJNI Administration Allergies heparin Adverse Reaction (Severe, Verified 05/15/18 13:30) decreased renal function ? Iodine Adverse Reaction (Intermediate, Uncoded 02/25/16 08:45) Rash Exam Narrative Exam Narrative: Physical Exam: Gen: Patient of apparent stated age, NAD Head and face: no facial or cranial abnormalities Neck: Supple, no meningismus, no occipital tenderness CV: + S1, S2, RRR Resp: CTA B/L Abd: soft, nontender, +BS Ext: Mild LE edema. No clubbing or cyanosis. No bony deformity. Neuro Exam: Language: fluency, naming, and repetition intact; He had difficulty following complex commands; Mental Status: AAO to self only; perseverated during conversation; Speech: no dysarthria Cranial nerves: Funduscopy: not performed CN II: visual haley intact CN III, IV, : extraocular movements intact, no nystagmus, pupils symmetric and reactive to light CN V: face sensation intact to PP CN VII: no facial asymmetry noted CN VIII: hearing intact bilaterally CN IX, X: palate rises symmetrically CN XI: trapezius/SCM 5/5 bilaterally CN XII: protrudes tongue symmetrically Sensory: appears to have reduced PP in the legs bilaterally below the knees; somewhat difficult to know due to AMS and for that reason unable to reliably test other sensory modalities; Motor: bulk and tone intact. Fine motor movements reduced bilaterally. No pronator drift. No asterixis. Strength appears 5/5 throughout. Reflexes: hyporeflexic throughout; toes neutral bilaterally; Coordination: no ataxia Gait: deferred Results Last Vital Signs Temp 36.3 C L 05/28/18 11:20 Pulse 64 05/28/18 11:20 Resp 18 05/28/18 11:20 BP 131/75 05/28/18 11:20 Pulse Ox 97 05/28/18 11:20 Labs : 05/27/18 07:15 05/28/18 07:15 Laboratory Results - last 24 hr 05/28/18 05/28/18 05/28/18 07:15 07:15 07:15 PT 38.3 H INR 4.1 H D Sodium 135 L Potassium 3.2 L Chloride 95 L Carbon Dioxide 34.6 H Anion Gap 5.4 BUN 55 H Creatinine 1.72 H Estimated GFR/1.73 m2 39.62 Glucose 93 Calcium 8.9 Magnesium 1.8 Total Bilirubin 1.9 H Conjugated Bilirubin 0.73 H AST 36 ALT 18 Alkaline Phosphatase 192 H Ammonia 69 H Total Protein 7.5 Albumin 2.6 L Vital Signs 05/25/18 15:02 05/25/18 15:04 05/25/18 15:04 05/25/18 19:24 05/25/18 23:45 05/26/18 00:10 05/26/18 07:20 05/26/18 09:01 05/26/18 11:15 05/26/18 12:00 05/26/18 12:58 05/26/18 15:00 05/26/18 15:49 05/26/18 16:37 05/26/18 23:29 05/27/18 00:02 05/27/18 07:15 05/27/18 08:03 05/27/18 08:39 05/27/18 15:00 05/27/18 16:36 05/27/18 23:22 05/28/18 00:06 05/28/18 04:38 05/28/18 07:05 05/28/18 07:15 05/28/18 09:15 05/28/18 09:30 05/28/18 11:20 05/28/18 14:00 Height 1.75 m Weight 107.1 kg 107.1 kg 107.1 kg BP 144/82 H 116/71 92/55 L 132/77 122/78 132/75 142/60 H 116/74 113/78 100/56 L 117/73 120/77 131/75 Blood Pressure Location Rt brachial Position Sitting Respiration 18 18 22 20 18 22 18 20 18 19 19 18 18 18 Pulse 65 78 50 L 80 70 68 62 68 71 77 76 76 79 90 69 89 65 69 55 L 72 51 L 61 64 72 64 72 Temp 37.0 C 36.4 C L 36.4 C L 36.6 C 36.8 C 36.6 C 36.1 C L 36.6 C 36.5 C 35.6 C L 36 C L 36.3 C L Temp Source Temporal Artery Scan Tympanic Tympanic Tympanic Tympanic Tympanic Tympanic Tympanic Tympanic Tympanic Tympanic Pulse Oximetry (%) 94 L 97 96 96 95 96 96 98 97 95 96 96 94 L 97 Oxygen Flow Rate 0 1.75 2 2 2 2 2 2 2 2 2 2 2 2 Ambulatory Orders Medication Instructions Recorded magnesium oxide 400 mg PO BID #180 tab-cap 04/08/15 mupirocin calcium [Bactroban 2% 1 applic TOPICAL BID PRN #30 gm 08/19/15 Cream] digoxin 1 tab PO DAILY #90 tab-cap 03/28/17 triamcinolone acetonide 1 lorna TOPICAL BID #1 tube 04/17/17 tiotropium bromide [Spiriva 18 mcg INHALATION DAILY PRN #3 10/19/17 Handihaler] tab-cap allopurinol 300 mg PO DAILY #90 tab-cap 10/27/17 Metoprolol Succinate 50 mg PO DAILY #90 tab-cap 12/13/17 metolazone 5 mg PO as directed #30 tab-cap 12/13/17 torsemide 60 mg PO DAILY #180 tab-cap 12/13/17 lisinopril 2.5 mg tablet 2.5 mg PO DAILY #90 tab 04/04/18 simvastatin 40 mg PO DAILY #90 tab-cap 04/17/18 warfarin 5 mg tablet 5 mg PO DAILY #100 tab-cap 05/07/18 potassium chloride ER 10 mEq 10 meq PO DAILY #90 tab 05/20/18 tablet,extended release
--- NOTE | 2018-05-28 14:18 | NCONE_ITS ---
Date of service: 05/28/18 Time of Service: 14:06 Assessment and Plan (1) Altered mental status: Current visit: Yes Status: Acute Mr. Malik is a 68-year-old man of unknown handedness with a past medical history of viral biventricular cardiomyopathy, CHF, A. fib, obstructive sleep apnea, chronic kidney disease, and liver disease who was admitted for altered mental status. There was a question of focal neurological deficits, namely face weakness of unknown duration despite being adequately anticoagulated. He does not have any focal neurological deficits at this time. An MRI brain was performed today. The unofficial reading shows no evidence of acute or subacute infarct. His altered mental status seems to be metabolic in nature. He has not had any seizure activity and does not have any known risk factors for seizures. Continue treatment of his liver disease. Please call with any further questions or concerns. DISCLAIMER: This note was created using [employer] voice recognition software. History of Present Illness Chief Complaint: face weakness, transient Narrative: Handedness: unknown. HPI: Mr. Malik is an 68-year-old man with a past medical history of atrial fibrillation on Coumadin, viral biventricular cardiomyopathy and CHF with resultant liver disease, obstructive sleep apnea intolerant of CPAP, and chronic kidney disease. He consulted with palliative care last month. He has generally not been interested in extensive workups or treatments. He was brought to the ER by his on 05/25/18 for 1 week of increasing altered mental status. At some point during that week the patient was noted to have a facial droop, though we do not know which side this occurred on or for what duration. He has not had any focal neurological signs while in the hospital. Upon admission, he was noted to have an ammonia level of 151. This has since gone down to 69. He had an unremarkable UA and digoxin level. His INR upon admission was 3.8. Creatinine was stable with his baseline at 1.6-1.7. His sodium has been stable at 135. His T bili and alk phos are elevated but stable. AST and ALT are normal. He had a normal B12 and TSH. Tick panel is pending. He had a CT head which I was able to review and was also normal. He has had slight improvement of his mental status since admission but continues to wax and wane. He underwent an MRI brain MRA head which I was able to review. The official report is pending. There is no evidence of an acute infarct. He has a few scattered T2 white matter hyperintensities consistent with chronic small vessel disease. MRA head was unremarkable. Consults Requesting physician: Meri Cardozo Review of Systems Review of Systems All systems reviewed & are unremarkable except as noted in HPI and below PFSH Family History Brother Heart disease Grandfather No problems noted. Grandfather No problems noted. Mother Diabetes Alcohol abuse Father Alcohol abuse Grandmother Diabetes Grandmother No problems noted. 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) Sleep apnea (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) Hyperlipidemia (Chronic 03/20/13) History of alcoholism (Chronic) Family hx of alcoholism (Chronic) History of tobacco use (Chronic) Gout (Chronic 03/03/14) Facial dermatitis (Chronic 04/17/17) Disorder of lung (Acute 11/14/12) Chronic venous stasis dermatitis of both lower extremities (Chronic 10/24/17) Atrial fibrillation (Chronic 03/03/14) Anticoagulated on warfarin (Chronic) Social History household members: spouse housing: house lives independently: No (pt doesn't drive, meals done ahead if will be alone) current occupational status: retired pets and animals: Yes (cat is currently missing) pets and animals: cat(s) frequency: daily Smoking/Tobacco Use Status: Former Tobacco Use how long ago did patient quit smoking: QUIT 04/06/2005 alcohol intake: never details: Unknown substance use type: does not use special uriah needs: No seatbelt use: always drive intox or ride w/ intox experienced 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 working smoke detector in home: Yes fire extinguisher in home: Yes carbon monox detector in home: Yes firearms in home: No Surgical History Extraction of cataract (02/18/16) 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) Visit Medication and Allergies Active Medications Generic Name Dose Route Start Last Admin Trade Name Freq PRN Reason Stop Dose Admin Al Hydrox/Mg Hydrox/Simethicone 30 ml 05/25/18 17:58 Mylanta Liquid PO Q2H PRN PRN Albuterol/Ipratropium 3 ml 05/25/18 17:58 Duoneb Updraft UPD Q6H PRN PRN Allopurinol 300 mg 05/26/18 08:30 05/28/18 09:16 Zyloprim PO 300 mg DAILY RAJNI Administration Digoxin 0.125 mg 05/26/18 08:30 05/28/18 09:15 Lanoxin PO 0.125 mg DAILY RAJNI Administration Dimethicone/Zinc Oxide 0 gm 05/25/18 17:58 Annai Protect Cream TP PRN PRN Docusate Sodium 100 mg 05/25/18 17:58 Colace PO TID PRN PRN Ceftriaxone Sodium/Dextrose 1 gm in 50 mls @ 100 mls/hr 05/26/18 20:00 20:14 Rocephin IVPB 100 mls/hr Q24H RAJNI Administration IV Miscellaneous Supplies 1 each 05/25/18 15:15 IV DIRECTED RAJNI Lactulose 20 gm 05/28/18 14:00 Cephulac PO TID RAJNI Lisinopril 2.5 mg 05/26/18 08:30 05/28/18 09:16 Prinivil PO 2.5 mg DAILY RAJNI Administration Magnesium Hydroxide 30 ml 05/25/18 17:58 Milk Of Magnesia PO DAILY PRN PRN Magnesium Oxide 400 mg 05/25/18 20:00 05/28/18 09:16 Mag-Ox 400 PO 400 mg BID RAJNI Administration Metolazone 5 mg 05/27/18 08:30 05/27/18 08:39 Zaroxolyn PO 5 mg SuTh@0830 RAJNI Administration Metoprolol Succinate 50 mg 05/26/18 08:30 05/28/18 09:16 Toprol Xl PO 50 mg DAILY RAJNI Administration Mupirocin 0 gm 05/25/18 17:53 Bactroban 2% Cream TP BID PRN PRN Pantoprazole Sodium 40 mg 05/25/18 20:00 05/27/18 20:10 Protonix Injection IVP 40 mg Q24H RAJNI Administration Pt's Own 0 each 05/26/18 20:00 05/28/18 09:18 Triamcinolone Cream TP Not Given BID RAJNI Polyethylene Glycol 17 gm 05/25/18 17:58 Miralax PO DAILY PRN PRN Constipation Potassium Chloride 10 meq 05/26/18 08:30 05/28/18 09:16 Micro-K 10 PO 10 meq DAILY RAJNI Administration Potassium Chloride 40 meq 05/28/18 08:30 05/28/18 12:37 K-Dur PO 05/29/18 08:31 40 meq BID RAJNI Administration Simvastatin 40 mg 05/25/18 20:00 05/27/18 20:10 Zocor PO 40 mg QPM RAJNI Administration Sodium Chloride 0 ml 05/25/18 22:00 05/27/18 20:11 Saline Flush 10 Ml Syringe IVP 20 ml PRN PRN Administration Tiotropium [place] 1 cap 05/26/18 08:30 05/28/18 09:17 Spiriva Handihaler IH 1 cap DAILY RAJNI Administration Torsemide 40 mg 05/26/18 08:30 05/28/18 09:16 Demadex PO 40 mg QAM RAJNI Administration Torsemide 20 mg 05/26/18 16:00 05/27/18 16:13 Demadex PO 20 mg DAILY@1600 RAJNI Administration Allergies heparin Adverse Reaction (Severe, Verified 05/15/18 13:30) decreased renal function ? Iodine Adverse Reaction (Intermediate, Uncoded 02/25/16 08:45) Rash Exam Narrative Exam Narrative: Physical Exam: Gen: Patient of apparent stated age, NAD Head and face: no facial or cranial abnormalities Neck: Supple, no meningismus, no occipital tenderness CV: + S1, S2, RRR Resp: CTA B/L Abd: soft, nontender, +BS Ext: Mild LE edema. No clubbing or cyanosis. No bony deformity. Neuro Exam: Language: fluency, naming, and repetition intact; He had difficulty following complex commands; Mental Status: AAO to self only; perseverated during conversation; Speech: no dysarthria Cranial nerves: Funduscopy: not performed CN II: visual haley intact CN III, IV, : extraocular movements intact, no nystagmus, pupils symmetric and reactive to light CN V: face sensation intact to PP CN VII: no facial asymmetry noted CN VIII: hearing intact bilaterally CN IX, X: palate rises symmetrically CN XI: trapezius/SCM 5/5 bilaterally CN XII: protrudes tongue symmetrically Sensory: appears to have reduced PP in the legs bilaterally below the knees; somewhat difficult to know due to AMS and for that reason unable to reliably test other sensory modalities; Motor: bulk and tone intact. Fine motor movements reduced bilaterally. No pronator drift. No asterixis. Strength appears 5/5 throughout. Reflexes: hyporeflexic throughout; toes neutral bilaterally; Coordination: no ataxia Gait: deferred Results Last Vital Signs Temp 36.3 C L 05/28/18 11:20 Pulse 64 05/28/18 11:20 Resp 18 05/28/18 11:20 BP 131/75 05/28/18 11:20 Pulse Ox 97 05/28/18 11:20 Labs : 05/27/18 07:15 05/28/18 07:15 Laboratory Results - last 24 hr 05/28/18 05/28/18 05/28/18 07:15 07:15 07:15 PT 38.3 H INR 4.1 H D Sodium 135 L Potassium 3.2 L Chloride 95 L Carbon Dioxide 34.6 H Anion Gap 5.4 BUN 55 H Creatinine 1.72 H Estimated GFR/1.73 m2 39.62 Glucose 93 Calcium 8.9 Magnesium 1.8 Total Bilirubin 1.9 H Conjugated Bilirubin 0.73 H AST 36 ALT 18 Alkaline Phosphatase 192 H Ammonia 69 H Total Protein 7.5 Albumin 2.6 L Vital Signs 3 l l l l 05/25/18 15:02 l l 05/25/18 15:04 l l 05/25/18 15:04 l l 05/25/18 19:24 l l 05/25/18 23:45 l l 05/26/18 00:10 l l 05/26/18 07:20 l l 05/26/18 09:01 l l 05/26/18 11:15 l l 05/26/18 12:00 l l 05/26/18 12:58 l l 05/26/18 15:00 l l 05/26/18 15:49 l l 05/26/18 16:37 l l 05/26/18 23:29 l l 05/27/18 00:02 l l 05/27/18 07:15 l l 05/27/18 08:03 l l 05/27/18 08:39 l l 05/27/18 15:00 l l 05/27/18 16:36 l l 05/27/18 23:22 l l 05/28/18 00:06 l l 05/28/18 04:38 l l 05/28/18 07:05 l l 05/28/18 07:15 l l 05/28/18 09:15 l l 05/28/18 09:30 l l 05/28/18 11:20 l l 05/28/18 14:00 l l Height 1.75 m l l Weight 107.1 kg 107.1 kg 107.1 kg l l BP 144/82 H 116/71 92/55 L 132/77 122/78 132/75 142/60 H 116/74 113/78 100/56 L 117/73 120/77 131/75 l l Blood Pressure Location Rt brachial l l Position Sitting l l Respiration 18 18 22 20 18 22 18 20 18 19 19 18 18 18 l l Pulse 65 78 50 L 80 70 68 62 68 71 77 76 76 79 90 69 89 65 69 55 L 72 51 L 61 64 72 64 72 l l Temp 37.0 C 36.4 C L 36.4 C L 36.6 C 36.8 C 36.6 C 36.1 C L 36.6 C 36.5 C 35.6 C L 36 C L 36.3 C L l l Temp Source Temporal Artery Scan Tympanic Tympanic Tympanic Tympanic Tympanic Tympanic Tympanic Tympanic Tympanic Tympanic l l Pulse Oximetry (%) 94 L 97 96 96 95 96 96 98 97 95 96 96 94 L 97 l l Oxygen Flow Rate 0 1.75 2 2 2 2 2 2 2 2 2 2 2 2 Ambulatory Orders Medication Instructions Recorded magnesium oxide 400 mg PO BID #180 tab-cap 04/08/15 mupirocin calcium [Bactroban 2% 1 applic TOPICAL BID PRN #30 gm 08/19/15 Cream] digoxin 1 tab PO DAILY #90 tab-cap 03/28/17 triamcinolone acetonide 1 lorna TOPICAL BID #1 tube 04/17/17 tiotropium bromide [Spiriva 18 mcg INHALATION DAILY PRN #3 10/19/17 Handihaler] tab-cap allopurinol 300 mg PO DAILY #90 tab-cap 10/27/17 Metoprolol Succinate 50 mg PO DAILY #90 tab-cap 12/13/17 metolazone 5 mg PO as directed #30 tab-cap 12/13/17 torsemide 60 mg PO DAILY #180 tab-cap 12/13/17 lisinopril 2.5 mg tablet 2.5 mg PO DAILY #90 tab 04/04/18 simvastatin 40 mg PO DAILY #90 tab-cap 04/17/18 warfarin 5 mg tablet 5 mg PO DAILY #100 tab-cap 05/07/18 potassium chloride ER 10 mEq 10 meq PO DAILY #90 tab 05/20/18 tablet,extended release
--- NOTE | 2018-05-28 15:03 | PDOC.CMPRO ---
Care Management Progress Note S/O: Demar was preparing to transfer to W/C with staff for continued testing. His was at his bedside and agreeable to discharge planning considerations. No anticipated change in status at this time. He remains agreeable to [facility] services upon discharge. A: 68 year old male admitted to [facility] 05/25/18 for AMS P: Demar will return home when ready per MD at he and his 's wishes. He will likely have new orders for [facility] RN/PT/OT/HOTSHOT SUPERINTENDENT and referral for oversight to CCC: Dali Samaniego at [facility]. 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 CM will continue to follow and support discharge planning considerations.
--- NOTE | 2018-05-28 15:08 | CMPROGNOTE_ITS ---
Care Management Progress Note S/O: Demar was preparing to transfer to W/C with staff for continued testing. His was at his bedside and agreeable to discharge planning considerations. No anticipated change in status at this time. He remains agreeable to [facility] services upon discharge. A: 68 year old male admitted to [facility] 05/25/18 for AMS P: Demar will return home when ready per MD at he and his 's wishes. He will likely have new orders for [facility] RN/PT/OT/HEALTH INFORMATION CLERK and referral for oversight to CCC: Dali Samaniego at [facility]. 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 CM will continue to follow and support discharge planning considerations.
--- NOTE | 2018-05-28 16:24 | DI.US_ITS ---
SYMPTOM/DIAGNOSIS: ELEVATED AMMONIA, SUSPECT CIRRHOSIS ABDOMEN ULTRASOUND: The study is limited due to overlying bowel. The distal aorta was visualized and is normal in caliber. The remainder of the aorta cannot be seen. The IVC is normal in caliber. The liver was difficult to evaluate but no gross abnormality is identified. It appears normal in size. There are stones seen within the gallbladder. The common duct is within normal limits at .3 cm. The pancreas is not well visualized due to overlying bowel. The spleen and kidneys are unremarkable. IMPRESSION: Suboptimal examination. Cholelithiasis. No evidence of biliary ductal dilatation.
[2018-05-28] MEDS: Torsemide 20 MG TAB PO (16:26)
--- NOTE | 2018-05-28 19:22 | PGE_ITS ---
Date of Service Date of service: 05/28/18 Time of Service: 13:00 Assessment and Plan (1) Altered mental status: Current visit: Yes Status: Acute Due to hepatic encephalopathy. No evidence of acute CVA per MRI. Neurology consult pending. CT abdomen suggestive of cirrhosis - DDx: cardiac cirrhosis/patient does have a history of distant alcohol abuse. Increase lactulose to TID as ammonia is going up and mental status is getting worse. (2) Non-sustained ventricular tachycardia: Current visit: Yes Status: Acute Will speak with pt's outpatient security professionals re thoughts on AICD (3) Congestive heart failure: Current visit: Yes Status: Chronic Echo results above. Will reach out to outpatient cardiology. Continue current regimen of BB, ASA, and statin. Conitnue Torsemide with twice weekly Metolazone. (4) CKD (chronic kidney disease): Current visit: Yes Status: Chronic Continue to monitor Cr. (5) BUCKY (obstructive sleep apnea): Current visit: Yes Status: Chronic CPAP noncompliant. Reported significant history of PHTN. (6) Atrial fibrillation: Current visit: Yes Status: Chronic Continue BB and Digoxin, and monitor on telemetry. Coumadin on hold due to supratherapeutic INR (received vitamin K today) (7) Anticoagulated on warfarin: Current visit: Yes Status: Chronic Chronic anticoagulation with Coumadin, currently on hold due to Supratherapeutic INR. (8) DVT prophylaxis: Current visit: Yes Status: Acute Holding Coumadin with daily INR checks, currently elevated value. PPI for GI Prophylaxis. (9) Advanced directives, counseling/discussion: Current visit: Yes Status: Acute COLST to be reviewed. Full code. Subjective Interval history since last seen: The patient is more confused today. He does not know where he is. He is unable to follow my directions to be tested for asterexis. He denies any dizziness, chest pain, shortness of breath, nausea, vomiting. Exam Narrative Exam Narrative: General: Obese Middle aged male, laying in bed, more disoriented than yesterday Neurological: A&Ox1, confused, difficulty following commands, no focal deficit Psychiatric: calm, cooperative Skin: facial jaundice, telangienctasias, acral cyanosis of the nose (chronic) HEENT: EOMI, MMM, scleral icterus Cardiovascular: irregularly irregular, no m/r/g Lungs: CTAB Gastrointestinal: soft, nontender, nonndistended Extremities: BLE cellulitis with chronic venous stasis changes; +1 BLE edema Objective Objective Clinical Data: Abnormal lab results 05/28/18 05/28/18 05/28/18 Range/Units 07:15 07:15 07:15 PT 38.3 H (9.3-10.8) sec INR 4.1 H D (1.0-3.5) Sodium 135 L (136-145) mmol/L Potassium 3.2 L (3.5-5.1) mmol/L Chloride 95 L (98-107) mmol/L Carbon Dioxide 34.6 H (21.0-32.0) mmol/L BUN 55 H (7-18) mg/dL Creatinine 1.72 H (0.70-1.30) mg/dL Total Bilirubin 1.9 H (0.2-1.0) mg/dL Conjugated Bilirubin 0.73 H (0.00-0.20) mg/dL Alkaline Phosphatase 192 H (46-116) U/L Ammonia 69 H (11-32) umol/L Albumin 2.6 L (3.4-5.0) g/dL Vital Signs Temperature 36 C L 05/28/18 15:27 Temperature Source Tympanic 05/28/18 15:27 Pulse 73 05/28/18 16:57 Pulse Rhythm Irregular 05/28/18 07:38 Respiratory Rate 18 05/28/18 15:27 Respiratory Effort Non-Labored 05/28/18 07:38 Respiratory Depth Normal 05/28/18 07:38 Respiratory Pattern Normal 05/28/18 07:38 Blood Pressure 92/58 L 05/28/18 15:27 Blood Pressure Position Sitting 05/25/18 15:02 Pulse Oximetry 96 05/28/18 15:27 Oxygen Delivery Method Nasal Cannula 05/28/18 15:27 Oxygen Flow Rate 2 05/28/18 11:20 Fraction of Inspired Oxygen (FIO2) 2 05/28/18 15:27 Pain Level 0 05/28/18 15:27 Intake & Output 05/27/18 05/28/18 05/28/18 23:59 11:59 23:59 Intake Total 360 / 360 360 / 360 250 / 250 Output Total 150 / 150 Balance 360 / 360 210 / 210 250 / 250 Intake: Oral 360 / 360 360 / 360 250 / 250 Output: Urine 150 / 150 Other: Urine Color Yellow Yellow Yellow Urine Appearance Clear Clear Urine Odor Normal Comment toilet Stool Size Moderate Small Smear Stool Characteristics Soft Soft Soft Brown Brown Brown Voiding Methods Toilet Urinal Toilet Laboratory Results WBC 7.21 k/cumm (4.4-10.8) 05/27/18 07:15 RBC 4.90 m/cumm (4.50-6.00) 05/27/18 07:15 Hgb 15.9 g/dL (13.5-17.5) 05/27/18 07:15 Hct 50.0 % (40.0-50.0) 05/27/18 07:15 MCV 102.0 fL (80-95) H D 05/27/18 07:15 MCH 32.4 pg (27.0-33.0) 05/27/18 07:15 MCHC 31.8 g/dL (32.0-36.0) L 05/27/18 07:15 RDW 16.8 % (11.8-14.1) H 05/27/18 07:15 Plt Count 221 x1000/uL (130-400) 05/27/18 07:15 MPV 10.0 fL (8.0-11.0) 05/27/18 07:15 Immature Gran % 0.1 05/27/18 07:15 Neutrophils % 71.4 05/27/18 07:15 Lymphocytes % 16.9 05/27/18 07:15 Monocytes % 9.4 05/27/18 07:15 Eosinophils % 1.4 05/27/18 07:15 Basophils % 0.8 05/27/18 07:15 Absolute Neutrophils 5.14 k/cumm (1.2-6.7) 05/27/18 07:15 Absolute Lymphocytes 1.22 k/cumm (1.2-3.4) 05/27/18 07:15 Absolute Monocytes 0.68 k/cumm (0.11-0.7) 05/27/18 07:15 Absolute Eosinophils 0.10 k/cumm (0.0-0.7) 05/27/18 07:15 Absolute Basophils 0.06 k/cumm (0.0-0.2) 05/27/18 07:15 PT 38.3 sec (9.3-10.8) H 05/28/18 07:15 INR 4.1 (1.0-3.5) H D 05/28/18 07:15 Sodium 135 mmol/L (136-145) L 05/28/18 07:15 Potassium 3.2 mmol/L (3.5-5.1) L 05/28/18 07:15 Chloride 95 mmol/L (98-107) L 05/28/18 07:15 Carbon Dioxide 34.6 mmol/L (21.0-32.0) H 05/28/18 07:15 Anion Gap 5.4 mmol/L (3-11) 05/28/18 07:15 BUN 55 mg/dL (7-18) H 05/28/18 07:15 Creatinine 1.72 mg/dL (0.70-1.30) H 05/28/18 07:15 Estimated GFR/1.73 m2 39.62 (mL/min/1.73m2) 05/28/18 07:15 Glucose 93 mg/dL (70-100) 05/28/18 07:15 Calcium 8.9 mg/dL (8.5-10.1) 05/28/18 07:15 Magnesium 1.8 mg/dL (1.8-2.4) 05/28/18 07:15 Total Bilirubin 1.9 mg/dL (0.2-1.0) H 05/28/18 07:15 Conjugated Bilirubin 0.73 mg/dL (0.00-0.20) H 05/28/18 07:15 AST 36 U/L (15-37) 05/28/18 07:15 ALT 18 U/L (12-78) 05/28/18 07:15 Alkaline Phosphatase 192 U/L (46-116) H 05/28/18 07:15 Ammonia 69 umol/L (11-32) H 05/28/18 07:15 Troponin I 0.04 ng/mL (0.00-0.06) 05/26/18 08:00 Total Protein 7.5 g/dL (6.4-8.2) 05/28/18 07:15 Albumin 2.6 g/dL (3.4-5.0) L 05/28/18 07:15 Vitamin B12 738 pg/mL (193-986) 05/25/18 10:20 Folate 14.9 ng/mL (8.6-20.0) 05/25/18 10:20 TSH 2.85 uIU/mL (0.358-3.74) 05/25/18 15:16 Urine Color Yellow (Yellow) 05/25/18 15:49 Urine Clarity Clear 05/25/18 15:49 Urine pH 7.0 (5-8) 05/25/18 15:49 Ur Specific [place] 1.015 (1.005-1.025) 05/25/18 15:49 Urine Protein Negative mg/dL (Negative) 05/25/18 15:49 Urine Ketones Negative mg/dL (Negative) 05/25/18 15:49 Urine Blood Trace-lysed (Negative) H 05/25/18 15:49 Urine Nitrite Negative (Negative) 05/25/18 15:49 Urine Bilirubin Negative (Negative) 05/25/18 15:49 Urine Urobilinogen 0.2 EU/dL (Up TO 0.2) 05/25/18 15:49 Ur Leukocyte Esterase Negative (Negative) 05/25/18 15:49 Urine RBC 5-10 (0-2) H 05/25/18 15:49 Urine WBC 0-2 HPF (0-5) 05/25/18 15:49 Ur Epithelial Cells Negative HPF (Negative) 05/25/18 15:49 Urine Crystals Negative HPF (Negative) 05/25/18 15:49 Urine Bacteria Rare HPF (Negative) 05/25/18 15:49 Urine Casts Negative LPF (Negative) 05/25/18 15:49 Urine Mucus Negative (Negative) 05/25/18 15:49 Ur Culture Indicated? No 05/25/18 15:49 Urine Glucose Negative mg/dL (Negative) 05/25/18 15:49 Digoxin 1.10 ng/mL (0.90-2.00) 05/25/18 10:20 Lyme Disease Antibody Negative 05/27/18 07:15 Echo: 1. Left ventricle: The cavity size was normal. Systolic function was severely reduced. The estimated ejection fraction was 25-30%. Diffuse hypokinesis. 2. Ventricular septum: The contour showed diastolic flattening and systolic flattening. These changes are consistent with RV volume and RV pressure overload. 3. Mitral valve: There was mild regurgitation. 4. Right ventricle: The cavity size was severely dilated. Systolic function was severely reduced. 5. Right atrium: The atrium was severely dilated. 6. Atrial septum: No defect or patent foramen ovale was identified. 7. Tricuspid valve: There was severe regurgitation. 8. Pulmonary arteries: Pulmonary systolic pressure was in the range of 65mm Hg to 75mm Hg. 9. Inferior vena cava: The vessel was patent and mildly dilated. The respirophasic diameter changes were blunted (less than 50%), consistent with normal central venous pressure. MRI/MRA brain: 1. Study limitations due to patient motion artifact. 2. Cerebral atrophy and small vessel ischemic disease. 3. No evidence of an acute infarct or hemorrhage. Moderate narrowing of the distal M1 segment of the left middle cerebral artery.
[2018-05-28] MEDS: Normal Saline Flush 10 ML SYR IVP (19:46)
[2018-05-28] MEDS: Pantoprazole 40 MG VIAL IVP (19:46)
[2018-05-28] MEDS: Simvastatin 40 MG TAB PO (19:47)
[2018-05-29] VITALS (10 sets, daily range): BP systolic 108–137; BP diastolic 67–82; PULSE 52–90; RESP 16–20; TEMP 36.4–37.6; O2SAT 92–99
[2018-05-29 00:36] LABS: Anaplasma phagocytophilum Negative (Negative); B. miyamotoi PCR Negative (Negative); Babesia divergens/MO-1 Negative (Negative); Babesia duncani Negative (Negative); Babesia microti Negative (Negative); Ehrlichia chaffeensis Negative (Negative); Ehrlichia ewingii/canis Negative (Negative); Ehrlichia muris eauclairensis Negative (Negative)
[2018-05-29 07:09] LABS: INR 2.6 (1.0-3.5); Prothrombin Time 24.7 sec (9.3-10.8)
[2018-05-29 07:15] LABS: ALT 26 U/L (12-78); AST 46 U/L (15-37); Albumin 2.5 g/dL (3.4-5.0); Alkaline Phosphatase 318 U/L (46-116); Anion Gap 6.3 mmol/L (3-11); BUN 57 mg/dL (7-18); Bilirubin, Direct 0.97 mg/dL (0.00-0.20); Bilirubin, Total 2.1 mg/dL (0.2-1.0); CO2 34.7 mmol/L (21.0-32.0); CREATININE 1.77 mg/dL (0.70-1.30); Calcium 9.2 mg/dL (8.5-10.1); Chloride 93 mmol/L (98-107); Estimated GFR 38.33 (mL/min/1.73m2); Glucose 96 mg/dL (70-100); Magnesium 1.7 mg/dL (1.8-2.4); Potassium 3.5 mmol/L (3.5-5.1); Sodium 134 mmol/L (136-145); Total Protein 7.8 g/dL (6.4-8.2)
[2018-05-29] MEDS: Digoxin 0.125 MG TAB PO (08:33)
[2018-05-29] MEDS: Lisinopril 5 MG TAB 2.5 MG PO (08:33)
[2018-05-29] MEDS: Potassium Chloride 10 MEQ CAPCR PO (08:33)
[2018-05-29] MEDS: Allopurinol 300 MG TAB PO (08:33)
[2018-05-29] MEDS: Potassium Chloride 20 MEQ TABCR 40 MEQ PO (08:33)
[2018-05-29] MEDS: Lactulose 20 GM/30 ML CUP PO ×3 (08:33→19:31)
[2018-05-29] MEDS: Magnesium Oxide 400 MG TAB PO ×2 (08:33→19:31)
[2018-05-29] MEDS: Torsemide 20 MG TAB 40 MG PO (08:33)
[2018-05-29] MEDS: Metoprolol CR 50 MG TABCR PO (08:33)
[2018-05-29 09:38] LABS: PSA, Diagnostic 8.9 ng/ml (0-4.5)
--- NOTE | 2018-05-29 11:25 | PDOC.CMPRO ---
- If Service Date Differs Date of service: 05/29/18 Time of Service: 11:25 Care Management Progress Note S/O: Demar is sitting in his chair with his , Azul, at bedside when CM visits this morning. He is open to conversation and makes good eye contact. Demar reports that he is feeling well and would like to return home as soon as he can. CM, Demar, and Azul re-visit the discussion regarding discharge plans and both Demar and Azul reiterate that he will not be going to a SNF for s/t rehab. Demar and Azul would like him to return home at discharge with services (?). provided Azul with caregiver information as she has stated that she does not want Demar home alone for long hours at a time and she needs to get back to work at [employer]. A: 68 year old male admitted to [facility] 05/25/18 for AMS P: Demar will return home when ready per MD at he and his 's wishes. He will likely have new orders for [facility] RN/MUSIC PROFESSOR and referral for oversight to CCC: Dali Samaniego at [facility]. CM will continue to follow and support patient, family, and care team regarding discharge planning considerations.
--- NOTE | 2018-05-29 11:32 | CMPROGNOTE_ITS ---
- If Service Date Differs Date of service: 05/29/18 Time of Service: 11:25 Care Management Progress Note S/O: Demar is sitting in his chair with his , Azul, at bedside when CM visits this morning. He is open to conversation and makes good eye contact. Demar reports that he is feeling well and would like to return home as soon as he can. CM, Demar, and Azul re-visit the discussion regarding discharge plans and both Demar and Azul reiterate that he will not be going to a SNF for s/t rehab. Demar and Azul would like him to return home at discharge with services (?). provided Azul with caregiver information as she has stated that she does not want Demar home alone for long hours at a time and she needs to get back to work at [employer]. A: 68 year old male admitted to [facility] 05/25/18 for AMS P: Demar will return home when ready per MD at he and his 's wishes. He will likely have new orders for [facility] RN/PLANT WORKER and referral for oversight to CCC : Dali Samaniego at [facility]. CM will continue to follow and support patient, family, and care team regarding discharge planning considerations.
[2018-05-29 11:57] LABS: HBs Antibody, Qual Negative; HBs Antibody, Quant <3.1 mIU/mL; Hepatitis B Core Antibody Negative (NEGAT); Hepatitis B surface Ag Negative (NEGAT); Hepatitis C Ab w Rflx HCV PCR Negative (NEGAT)
[2018-05-29] MEDS: MAGNESIUM SULFATE 2 GM/50 ML BAG IVPB (12:09)
[2018-05-29] MEDS: Normal Saline Flush 10 ML SYR IVP ×2 (12:09→19:32)
[2018-05-29] MEDS: Torsemide 20 MG TAB PO (16:51)
--- NOTE | 2018-05-29 17:39 | PGE_ITS ---
Date of Service Date of service: 05/29/18 Time of Service: 13:00 Assessment and Plan (1) Altered mental status: Current visit: Yes Status: Acute Due to hepatic encephalopathy in setting of cirrhosis (cardiac or alcoholic or both). No evidence of acute CVA per MRI. Continue TID lactulose. Appreciate neurology consult. (2) Non-sustained ventricular tachycardia: Current visit: Yes Status: Acute Cardiology consult for AICD given EF of 25-30% on echo. (3) Congestive heart failure: Current visit: Yes Status: Chronic AICD discussion above Continue current regimen of BB, ASA, and statin. Conitnue Torsemide with twice weekly Metolazone. (4) CKD (chronic kidney disease): Current visit: Yes Status: Chronic Continue to monitor Cr. (5) BUCKY (obstructive sleep apnea): Current visit: Yes Status: Chronic CPAP noncompliant. Reported significant history of PHTN. (6) Atrial fibrillation: Current visit: Yes Status: Chronic Continue BB and Digoxin, monitor on telemetry. Holding coumadin until I have a conversation with cardiology about his risks given cirrhosis. (7) Anticoagulated on warfarin: Current visit: Yes Status: Chronic Anticoagulation on hold. (8) DVT prophylaxis: Current visit: Yes Status: Acute Holding Coumadin (9) Advanced directives, counseling/discussion: Current visit: Yes Status: Acute COLST to be reviewed. Full code. Subjective Interval history since last seen: Remains confused. Denies dizziness, chest pain , shortness of breath, nausea, vomiting. Exam Narrative Exam Narrative: General: Obese Middle aged male, laying in bed, somnolent Neurological: A&Ox1, confused, arousable, no focal deficits Psychiatric: difficult to assess Skin: facial jaundice, telangienctasias, acral cyanosis of the nose (chronic) HEENT: EOMI, MMM, scleral icterus Cardiovascular: irregularly irregular, no m/r/g Lungs: CTAB Gastrointestinal: soft, nontender, nonndistended Extremities: BLE cellulitis with chronic venous stasis changes; +1 BLE edema Objective Objective Clinical Data: Abnormal lab results 05/28/18 05/29/18 05/29/18 Range/Units 07:15 06:45 06:45 PT 24.7 H D (9.3-10.8) sec Sodium 134 L (136-145) mmol/L Chloride 93 L (98-107) mmol/L Carbon Dioxide 34.7 H (21.0-32.0) mmol/L BUN 57 H (7-18) mg/dL Creatinine 1.77 H (0.70-1.30) mg/dL Magnesium 1.7 L (1.8-2.4) mg/dL Total Bilirubin 2.1 H (0.2-1.0) mg/dL Conjugated Bilirubin 0.97 H (0.00-0.20) mg/dL AST 46 H (15-37) U/L Alkaline Phosphatase 318 H (46-116) U/L Albumin 2.5 L (3.4-5.0) g/dL Prostate Specific Ag 8.9 H (0-4.5) ng/ml Vital Signs Temperature 37.3 C 05/29/18 16:09 Temperature Source Tympanic 05/29/18 16:09 Pulse 71 05/29/18 16:09 Pulse Rhythm Irregular 05/29/18 09:47 Respiratory Rate 19 05/29/18 16:09 Respiratory Effort Non-Labored 05/29/18 09:47 Respiratory Depth Normal 05/29/18 09:47 Respiratory Pattern Normal 05/29/18 09:47 Blood Pressure 110/70 05/29/18 16:09 Blood Pressure Position Sitting 05/25/18 15:02 Pulse Oximetry 95 05/29/18 16:09 Oxygen Delivery Method Room Air 05/29/18 16:09 Oxygen Flow Rate 0 05/29/18 16:09 Fraction of Inspired Oxygen (FIO2) 2 05/28/18 15:27 Pain Level 0 05/28/18 19:40 Intake & Output 05/28/18 05/29/18 05/29/18 23:59 11:59 23:59 Intake Total 550 / 550 Output Total 200 / 200 Balance 550 / 550 -200 / -200 Intake: IV 60 / 60 Oral 490 / 490 Output: Urine 200 / 200 Other: Urine Color Yellow Pale Yellow Urine Appearance Clear Clear Urine Odor Normal Comment PVR 45 Stool Size Smear Small Small Stool Characteristics Soft Soft Soft Brown Brown Voiding Methods Toilet Toilet Toilet Laboratory Results WBC 7.21 k/cumm (4.4-10.8) 05/27/18 07:15 RBC 4.90 m/cumm (4.50-6.00) 05/27/18 07:15 Hgb 15.9 g/dL (13.5-17.5) 05/27/18 07:15 Hct 50.0 % (40.0-50.0) 05/27/18 07:15 MCV 102.0 fL (80-95) H D 05/27/18 07:15 MCH 32.4 pg (27.0-33.0) 05/27/18 07:15 MCHC 31.8 g/dL (32.0-36.0) L 05/27/18 07:15 RDW 16.8 % (11.8-14.1) H 05/27/18 07:15 Plt Count 221 x1000/uL (130-400) 05/27/18 07:15 MPV 10.0 fL (8.0-11.0) 05/27/18 07:15 Immature Gran % 0.1 05/27/18 07:15 Neutrophils % 71.4 05/27/18 07:15 Lymphocytes % 16.9 05/27/18 07:15 Monocytes % 9.4 05/27/18 07:15 Eosinophils % 1.4 05/27/18 07:15 Basophils % 0.8 05/27/18 07:15 Absolute Neutrophils 5.14 k/cumm (1.2-6.7) 05/27/18 07:15 Absolute Lymphocytes 1.22 k/cumm (1.2-3.4) 05/27/18 07:15 Absolute Monocytes 0.68 k/cumm (0.11-0.7) 05/27/18 07:15 Absolute Eosinophils 0.10 k/cumm (0.0-0.7) 05/27/18 07:15 Absolute Basophils 0.06 k/cumm (0.0-0.2) 05/27/18 07:15 PT 24.7 sec (9.3-10.8) H D 05/29/18 06:45 INR 2.6 (1.0-3.5) D 05/29/18 06:45 Sodium 134 mmol/L (136-145) L 05/29/18 06:45 Potassium 3.5 mmol/L (3.5-5.1) 05/29/18 06:45 Chloride 93 mmol/L (98-107) L 05/29/18 06:45 Carbon Dioxide 34.7 mmol/L (21.0-32.0) H 05/29/18 06:45 Anion Gap 6.3 mmol/L (3-11) 05/29/18 06:45 BUN 57 mg/dL (7-18) H 05/29/18 06:45 Creatinine 1.77 mg/dL (0.70-1.30) H 05/29/18 06:45 Estimated GFR/1.73 m2 38.33 (mL/min/1.73m2) 05/29/18 06:45 Glucose 96 mg/dL (70-100) 05/29/18 06:45 Calcium 9.2 mg/dL (8.5-10.1) 05/29/18 06:45 Magnesium 1.7 mg/dL (1.8-2.4) L 05/29/18 06:45 Total Bilirubin 2.1 mg/dL (0.2-1.0) H 05/29/18 06:45 Conjugated Bilirubin 0.97 mg/dL (0.00-0.20) H 05/29/18 06:45 AST 46 U/L (15-37) H 05/29/18 06:45 ALT 26 U/L (12-78) 05/29/18 06:45 Alkaline Phosphatase 318 U/L (46-116) H 05/29/18 06:45 Ammonia 69 umol/L (11-32) H 05/28/18 07:15 Troponin I 0.04 ng/mL (0.00-0.06) 05/26/18 08:00 Total Protein 7.8 g/dL (6.4-8.2) 05/29/18 06:45 Albumin 2.5 g/dL (3.4-5.0) L 05/29/18 06:45 Prostate Specific Ag 8.9 ng/ml (0-4.5) H 05/28/18 07:15 Vitamin B12 738 pg/mL (193-986) 05/25/18 10:20 Folate 14.9 ng/mL (8.6-20.0) 05/25/18 10:20 TSH 2.85 uIU/mL (0.358-3.74) 05/25/18 15:16 Urine Color Yellow (Yellow) 05/25/18 15:49 Urine Clarity Clear 05/25/18 15:49 Urine pH 7.0 (5-8) 05/25/18 15:49 Ur Specific [place] 1.015 (1.005-1.025) 05/25/18 15:49 Urine Protein Negative mg/dL (Negative) 05/25/18 15:49 Urine Ketones Negative mg/dL (Negative) 05/25/18 15:49 Urine Blood Trace-lysed (Negative) H 05/25/18 15:49 Urine Nitrite Negative (Negative) 05/25/18 15:49 Urine Bilirubin Negative (Negative) 05/25/18 15:49 Urine Urobilinogen 0.2 EU/dL (Up TO 0.2) 05/25/18 15:49 Ur Leukocyte Esterase Negative (Negative) 05/25/18 15:49 Urine RBC 5-10 (0-2) H 05/25/18 15:49 Urine WBC 0-2 HPF (0-5) 05/25/18 15:49 Ur Epithelial Cells Negative HPF (Negative) 05/25/18 15:49 Urine Crystals Negative HPF (Negative) 05/25/18 15:49 Urine Bacteria Rare HPF (Negative) 05/25/18 15:49 Urine Casts Negative LPF (Negative) 05/25/18 15:49 Urine Mucus Negative (Negative) 05/25/18 15:49 Ur Culture Indicated? No 05/25/18 15:49 Urine Glucose Negative mg/dL (Negative) 05/25/18 15:49 Digoxin 1.10 ng/mL (0.90-2.00) 05/25/18 10:20 A.phagocytophil DNA PCR Negative (Negative) 05/27/18 07:15 B. divergens/MO-1 PCR Negative (Negative) 05/27/18 07:15 Babesia duncani (PCR) Negative (Negative) 05/27/18 07:15 Babesia microti DNA PCR Negative (Negative) 05/27/18 07:15 Borrelia (PCR) Negative (Negative) 05/27/18 07:15 Lyme Disease Antibody Negative 05/27/18 07:15 E.chaffeensis DNA (PCR) Negative (Negative) 05/27/18 07:15 E.ewingii/canis DNA PCR Negative (Negative) 05/27/18 07:15 E. muris-like DNA (PCR) Negative (Negative) 05/27/18 07:15 Hep Bs Antigen Negative (NEGAT) 05/28/18 07:15 Hep Bs Antibody Negative 05/28/18 07:15 Hep Bs Antibody, Quant <3.1 mIU/mL 05/28/18 07:15 Hep B Core Total Ab Negative (NEGAT) 05/28/18 07:15 Hepatitis C Antibody Negative (NEGAT) 05/28/18 07:15
[2018-05-29] MEDS: Pantoprazole 40 MG VIAL IVP (19:31)
[2018-05-29] MEDS: Simvastatin 40 MG TAB PO (19:32)
--- NOTE | 2018-05-29 22:43 | NUR.NOTE ---
2114 Called by ICU regarding arrhythmia's. Pt sleeping comfortably. Requested that the next time the ICU speaks with the hospitalist to let him know of arrhythmia's that the patient is continuing to have. Multiple references made of same arrhythmias in physician documentation/ progress notes.
[2018-05-30] VITALS (12 sets, daily range): BP systolic 107–134; BP diastolic 65–88; PULSE 61–77; RESP 16–20; TEMP 35.8–36.9; O2SAT 91–97
[2018-05-30 07:27] LABS: Anion Gap 5.3 mmol/L (3-11); BUN 60 mg/dL (7-18); CO2 35.7 mmol/L (21.0-32.0); CREATININE 1.91 mg/dL (0.70-1.30); Chloride 90 mmol/L (98-107); Estimated GFR 35.11 (mL/min/1.73m2); Glucose 123 mg/dL (70-100); Magnesium 2.1 mg/dL (1.8-2.4); Potassium 3.4 mmol/L (3.5-5.1); Sodium 131 mmol/L (136-145)
[2018-05-30 07:31] LABS: INR 2.1 (1.0-3.5); Prothrombin Time 19.8 sec (9.3-10.8)
[2018-05-30] MEDS: Potassium Chloride 10 MEQ CAPCR PO (08:15)
[2018-05-30] MEDS: Lachydrin 12% LOTION 225 GM BTL TP (08:15)
[2018-05-30] MEDS: Lactulose 20 GM/30 ML CUP PO ×3 (08:15→20:36)
[2018-05-30] MEDS: Allopurinol 300 MG TAB PO (08:15)
[2018-05-30] MEDS: Torsemide 20 MG TAB 40 MG PO (08:16)
[2018-05-30] MEDS: Magnesium Oxide 400 MG TAB PO ×2 (08:16→20:35)
[2018-05-30] MEDS: Metoprolol CR 50 MG TABCR PO (08:16)
[2018-05-30] MEDS: Digoxin 0.125 MG TAB PO (08:17)
[2018-05-30] MEDS: Lisinopril 5 MG TAB 2.5 MG PO (08:17)
[2018-05-30] MEDS: Potassium Chloride 10 MEQ CAPCR 40 MEQ PO (11:53)
[2018-05-30] MEDS: Rifaximin 550 MG TAB PO ×2 (11:53→20:35)
--- NOTE | 2018-05-30 12:46 | NUTRITION ---
Reviewed Cirrhosis nutrition therapy emphasizing low sodium nutrition therapy with patient present and with his . Provided written materials as well as my contact information. His verbalized a good understanding of the information.
--- NOTE | 2018-05-30 14:02 | PDOC.CMPRO ---
Care Management Progress Note S/O: CM met with Demar and his , Coby to review discharge information. Demar met with Dr. Burgess on 05/17/18 for Palliative Care. ordered repeat inpatient consult; CM attempted coordination and spoke with Alfredo at who continues to work on having a provider respond for consult prior to Demar's DC-though Demar has outpatient consult scheduled with Dr. Ruvalcaba 06/04/18 at [facility];CM will continue to follow. Coby reported she could be available [phone] tomorrow. Cboy expressed interest in POA process; CM provided information and encouraged Coby to follow up with ASSISTANT FOREMAN through [facility] as well as [address] process. Demar had a Cardiology Consult today--the decision remains not to seek placement of ICD. A: 68 year old male admitted to [facility] 05/25/18 for AMS P: Demar will return home when ready per MD at he and his 's wishes. He will likely have new orders for [facility]H/VNA RN/PT/OT/ASSISTANT FOREMAN and referral for oversight to CCC: Dali Samaniego at [facility]. CM will continue to follow and support patient, family, and care team regarding discharge planning considerations.
[2018-05-30] MEDS: Torsemide 20 MG TAB PO (15:53)
--- NOTE | 2018-05-30 16:16 | CMPROGNOTE_ITS ---
Care Management Progress Note S/O: CM met with Demar and his , Coby to review discharge information. Demar met with Dr. Burgess on 05/17/18 for Palliative Care. ordered repeat inpatient consult; CM attempted coordination and spoke with Alfredo at who continues to work on having a provider respond for consult prior to Demar's DC-though Demar has outpatient consult scheduled with Dr. Ruvalcaba 06/04/18 at [facility];CM will continue to follow. Coby reported she could be available [phone] tomorrow. Coby expressed interest in POA process; CM provided information and encouraged Coby to follow up with HYDRO GENERATION SUPERVISOR through [facility] as well as [address] process. Demar had a Cardiology Consult today--the decision remains not to seek placement of ICD. A: 68 year old male admitted to [facility] 05/25/18 for AMS P: Demar will return home when ready per MD at he and his 's wishes. He will likely have new orders for CHH/VNA RN/PT/OT/HYDRO GENERATION SUPERVISOR and referral for oversight to CCC: Dali Samaniego at [facility]. CM will continue to follow and support patient, family, and care team regarding discharge planning considerations.
[2018-05-30] MEDS: Normal Saline Flush 10 ML SYR IVP ×2 (18:05→20:36)
--- NOTE | 2018-05-30 18:16 | W.PM.PROGNOT ---
Date of Service Date of service: 05/30/18 Time of Service: 11:40 Assessment and Plan (1) Altered mental status: Current visit: Yes Status: Acute Due to hepatic encephalopathy in setting of cirrhosis (cardiac or alcoholic or both). No evidence of acute CVA per MRI. Continue TID lactulose. Appreciate neurology consult. Will add rifaximin. ?Safety of anticoagulation without knowing whether or not the patient has varices. (2) Non-sustained ventricular tachycardia: Current visit: Yes Status: Acute Not a candidate for AICD, per cardiology. Palliative care consulted. (3) Congestive heart failure: Current visit: Yes Status: Chronic AICD discussion above Continue current regimen of BB, ASA, and statin. Conitnue Torsemide with twice weekly Metolazone. (4) CKD (chronic kidney disease): Current visit: Yes Status: Chronic Continue to monitor Cr. (5) BUCKY (obstructive sleep apnea): Current visit: Yes Status: Chronic CPAP noncompliant. Reported significant history of PHTN. (6) Atrial fibrillation: Current visit: Yes Status: Chronic Continue BB and Digoxin, monitor on telemetry while the patient remains full code. Holding coumadin. (7) Anticoagulated on warfarin: Current visit: Yes Status: Chronic Anticoagulation on hold. (8) DVT prophylaxis: Current visit: Yes Status: Acute Holding Coumadin (9) Advanced directives, counseling/discussion: Current visit: Yes Status: Acute COLST to be reviewed. Full code. Palliative care consulted Subjective Interval history since last seen: Patient's is interested in meeting with palliative care. The patient is not a candidate for AICD per cardiology. The patient denies any dizziness, chest pain, shortness of breath, nausea, vomiting. Exam Narrative Exam Narrative: General: Obese Middle aged male, sitting in a chair, comfortable Neurological: A&Ox1, confused, arousable, no focal deficits Psychiatric: difficult to assess Skin: facial jaundice, telangienctasias, acral cyanosis of the nose (chronic) HEENT: EOMI, MMM, scleral icterus Cardiovascular: irregularly irregular, no m/r/g Lungs: CTAB Gastrointestinal: soft, nontender, nonndistended Extremities: BLE cellulitis - improved - with chronic venous stasis changes; +1 BLE edema Objective Objective Clinical Data: Abnormal lab results 05/30/18 05/30/18 Range/Units 07:00 07:00 PT 19.8 H (9.3-10.8) sec Sodium 131 L (136-145) mmol/L Potassium 3.4 L (3.5-5.1) mmol/L Chloride 90 L (98-107) mmol/L Carbon Dioxide 35.7 H (21.0-32.0) mmol/L BUN 60 H (7-18) mg/dL Creatinine 1.91 H (0.70-1.30) mg/dL Glucose 123 H (70-100) mg/dL Vital Signs Temperature 36.7 C 05/30/18 16:02 Temperature Source Tympanic 05/30/18 16:02 Pulse 68 05/30/18 16:20 Pulse Rhythm Regular 05/30/18 10:57 Respiratory Rate 19 05/30/18 16:02 Respiratory Effort Non-Labored 05/30/18 10:57 Respiratory Depth Normal 05/30/18 10:57 Respiratory Pattern Normal 05/30/18 10:57 Blood Pressure 134/88 05/30/18 16:02 Blood Pressure Position Sitting 05/25/18 15:02 Pulse Oximetry 97 05/30/18 16:02 Oxygen Delivery Method Nasal Cannula 05/30/18 16:02 Oxygen Flow Rate 1 05/30/18 16:02 Fraction of Inspired Oxygen (FIO2) 2 05/28/18 15:27 Pain Level 0 05/30/18 11:40 Intake & Output 05/29/18 05/30/18 05/30/18 23:59 11:59 23:59 Intake Total 570 / 570 940 / 940 240 / 240 Output Total 1090 / 1090 Balance 570 / 570 940 / 940 -850 / -850 Intake: IV 70 / 70 Oral 500 / 500 940 / 940 240 / 240 Output: Urine 640 / 640 Post Void Residual 450 / 450 Other: Urine Color Yellow Yellow Dark Jocelynn Urine Appearance Clear Clear Clear Urine Odor Normal Comment TV X 3 small void in toilet, some blood noted on the toilet paper will assess if it is penile or rectal; Resident had voided spontaneously on the toilet at about 1515. I encouraged him to lay down in bed afterwards. I explained to him that I had a concern the pvr we were getting while he wassitting in the recliner were not accurate as the size of his belly might be making it difficult to obtain a true reading. Dr. Cardozo agreed at that time and wanted a reading with him lyhing down. The pvr after lying down was 347 cc . By order since the pvr was greater than 250 cc the patient would be straight cathed. Rationale was explained to the patient and he consented to the procedure. Supplies were gathered and this was done using sterile technique. Patient was cleansed and prepped and patient was cathed using a 14 fr. Return was gathered immediately with insertion. a sample of urine was gathered in the event Dr Cardozo wanted a UA. The rest was measured as well. Total out put was 450 cc of urine. patient was cleaned up and made comfortable. Dr. Cardozo was updated and she did indeed want a UA. Per her order patient is to be encouraged to void Q 6 hours and bladder scanned to monitor retention Stool Size Small Stool Characteristics Brown Voiding Methods Toilet Toilet Toilet Laboratory Results WBC 7.21 k/cumm (4.4-10.8) 05/27/18 07:15 RBC 4.90 m/cumm (4.50-6.00) 05/27/18 07:15 Hgb 15.9 g/dL (13.5-17.5) 05/27/18 07:15 Hct 50.0 % (40.0-50.0) 05/27/18 07:15 MCV 102.0 fL (80-95) H D 05/27/18 07:15 MCH 32.4 pg (27.0-33.0) 05/27/18 07:15 MCHC 31.8 g/dL (32.0-36.0) L 05/27/18 07:15 RDW 16.8 % (11.8-14.1) H 05/27/18 07:15 Plt Count 221 x1000/uL (130-400) 05/27/18 07:15 MPV 10.0 fL (8.0-11.0) 05/27/18 07:15 Immature Gran % 0.1 05/27/18 07:15 Neutrophils % 71.4 05/27/18 07:15 Lymphocytes % 16.9 05/27/18 07:15 Monocytes % 9.4 05/27/18 07:15 Eosinophils % 1.4 05/27/18 07:15 Basophils % 0.8 05/27/18 07:15 Absolute Neutrophils 5.14 k/cumm (1.2-6.7) 05/27/18 07:15 Absolute Lymphocytes 1.22 k/cumm (1.2-3.4) 05/27/18 07:15 Absolute Monocytes 0.68 k/cumm (0.11-0.7) 05/27/18 07:15 Absolute Eosinophils 0.10 k/cumm (0.0-0.7) 05/27/18 07:15 Absolute Basophils 0.06 k/cumm (0.0-0.2) 05/27/18 07:15 PT 19.8 sec (9.3-10.8) H 05/30/18 07:00 INR 2.1 (1.0-3.5) 05/30/18 07:00 Sodium 131 mmol/L (136-145) L 05/30/18 07:00 Potassium 3.4 mmol/L (3.5-5.1) L 05/30/18 07:00 Chloride 90 mmol/L (98-107) L 05/30/18 07:00 Carbon Dioxide 35.7 mmol/L (21.0-32.0) H 05/30/18 07:00 Anion Gap 5.3 mmol/L (3-11) 05/30/18 07:00 BUN 60 mg/dL (7-18) H 05/30/18 07:00 Creatinine 1.91 mg/dL (0.70-1.30) H 05/30/18 07:00 Estimated GFR/1.73 m2 35.11 (mL/min/1.73m2) 05/30/18 07:00 Glucose 123 mg/dL (70-100) H 05/30/18 07:00 Calcium 9.0 mg/dL (8.5-10.1) 05/30/18 07:00 Magnesium 2.1 mg/dL (1.8-2.4) 05/30/18 07:00 Total Bilirubin 2.1 mg/dL (0.2-1.0) H 05/29/18 06:45 Conjugated Bilirubin 0.97 mg/dL (0.00-0.20) H 05/29/18 06:45 AST 46 U/L (15-37) H 05/29/18 06:45 ALT 26 U/L (12-78) 05/29/18 06:45 Alkaline Phosphatase 318 U/L (46-116) H 05/29/18 06:45 Ammonia 69 umol/L (11-32) H 05/28/18 07:15 Troponin I 0.04 ng/mL (0.00-0.06) 05/26/18 08:00 Total Protein 7.8 g/dL (6.4-8.2) 05/29/18 06:45 Albumin 2.5 g/dL (3.4-5.0) L 05/29/18 06:45 Prostate Specific Ag 8.9 ng/ml (0-4.5) H 05/28/18 07:15 Vitamin B12 738 pg/mL (193-986) 05/25/18 10:20 Folate 14.9 ng/mL (8.6-20.0) 05/25/18 10:20 TSH 2.85 uIU/mL (0.358-3.74) 05/25/18 15:16 Urine Color Yellow (Yellow) 05/25/18 15:49 Urine Clarity Clear 05/25/18 15:49 Urine pH 7.0 (5-8) 05/25/18 15:49 Ur Specific [place] 1.015 (1.005-1.025) 05/25/18 15:49 Urine Protein Negative mg/dL (Negative) 05/25/18 15:49 Urine Ketones Negative mg/dL (Negative) 05/25/18 15:49 Urine Blood Trace-lysed (Negative) H 05/25/18 15:49 Urine Nitrite Negative (Negative) 05/25/18 15:49 Urine Bilirubin Negative (Negative) 05/25/18 15:49 Urine Urobilinogen 0.2 EU/dL (Up TO 0.2) 05/25/18 15:49 Ur Leukocyte Esterase Negative (Negative) 05/25/18 15:49 Urine RBC 5-10 (0-2) H 05/25/18 15:49 Urine WBC 0-2 HPF (0-5) 05/25/18 15:49 Ur Epithelial Cells Negative HPF (Negative) 05/25/18 15:49 Urine Crystals Negative HPF (Negative) 05/25/18 15:49 Urine Bacteria Rare HPF (Negative) 05/25/18 15:49 Urine Casts Negative LPF (Negative) 05/25/18 15:49 Urine Mucus Negative (Negative) 05/25/18 15:49 Ur Culture Indicated? No 05/25/18 15:49 Urine Glucose Negative mg/dL (Negative) 05/25/18 15:49 Digoxin 1.10 ng/mL (0.90-2.00) 05/25/18 10:20 A.phagocytophil DNA PCR Negative (Negative) 05/27/18 07:15 B. divergens/MO-1 PCR Negative (Negative) 05/27/18 07:15 Babesia duncani (PCR) Negative (Negative) 05/27/18 07:15 Babesia microti DNA PCR Negative (Negative) 05/27/18 07:15 Borrelia (PCR) Negative (Negative) 05/27/18 07:15 Lyme Disease Antibody Negative 05/27/18 07:15 E.chaffeensis DNA (PCR) Negative (Negative) 05/27/18 07:15 E.ewingii/canis DNA PCR Negative (Negative) 05/27/18 07:15 E. muris-like DNA (PCR) Negative (Negative) 05/27/18 07:15 Hep Bs Antigen Negative (NEGAT) 05/28/18 07:15 Hep Bs Antibody Negative 05/28/18 07:15 Hep Bs Antibody, Quant <3.1 mIU/mL 05/28/18 07:15 Hep B Core Total Ab Negative (NEGAT) 05/28/18 07:15 Hepatitis C Antibody Negative (NEGAT) 05/28/18 07:15
[2018-05-30] MEDS: Simvastatin 40 MG TAB PO (20:35)
[2018-05-30] MEDS: Pantoprazole 40 MG VIAL IVP (20:36)
[2018-05-31] VITALS (8 sets, daily range): BP systolic 101–130; BP diastolic 65–86; PULSE 60–84; RESP 18–20; TEMP 35.1–36.5; O2SAT 94–96
[2018-05-31] MEDS: Lactulose 20 GM/30 ML CUP PO ×3 (08:37→19:59)
[2018-05-31] MEDS: Lachydrin 12% LOTION 225 GM BTL TP (08:38)
[2018-05-31] MEDS: Torsemide 20 MG TAB 40 MG PO (08:39)
[2018-05-31] MEDS: Lisinopril 5 MG TAB 2.5 MG PO (08:39)
[2018-05-31] MEDS: Potassium Chloride 10 MEQ CAPCR 40 MEQ PO (08:39)
[2018-05-31] MEDS: Metolazone 2.5 MG TAB 5 MG PO (08:39)
[2018-05-31] MEDS: Rifaximin 550 MG TAB PO ×2 (08:39→19:59)
[2018-05-31] MEDS: Magnesium Oxide 400 MG TAB PO ×2 (08:40→19:59)
[2018-05-31] MEDS: Metoprolol CR 50 MG TABCR PO (08:40)
[2018-05-31] MEDS: Digoxin 0.125 MG TAB PO (08:40)
[2018-05-31] MEDS: Allopurinol 300 MG TAB PO (08:40)
--- NOTE | 2018-05-31 10:11 | PCNE_ITS ---
Date of service: 05/31/18 Time of Service: 10:11 History of Present Illness Narrative: I was asked by Dr. Valverde to address CODE STATUS with Demar and his . Briefly Demar is a 68-year-old man with severe cardiomyopathy and low EF. He is not a candidate for cardiac transplant. Medical options are his only recourse at this time. He continues to be extremely short of breath, barely able to do activities of daily living. He understands most of what I just dictated, but still feels he is going to get better. His understands the gravity of his situation at this time. He has completed an advanced directive. It is quite confusing and some of the choices are not logical based on other choices. I am here specifically to complete a COLST with Kit Assessment and Plan (1) End of life care: Demar and his agree strongly that he should be a DNR/DNI. Initially he was willing to be intubated. But we went through different scenarios and he is in agreement with a DO NOT RESUSCITATE DO NOT INTUBATE. He still thinks he would like to be transferred to the hospital if he should become acutely ill. He understands that if he chooses hospice in the future that a hospice nurse would evaluate him first. He would want antibiotics if it would be helpful to return him to baseline. He does not want a feeding tube. He does want IV fluids for a short time. Both he and his felt comfortable with the. COLST form. Nursing copy this to be scanned into his medical record, and gave Demar back the original. I did put in the DNR order. I also spoke with Dr. Cardozo regarding this. I will follow up outpatient sometime within the next 7-10 days to see how Demar and his are doing. He would be eligible for hospice at this time. [facility] Family History Brother Heart disease Grandfather No problems noted. Grandfather No problems noted. Mother Diabetes Alcohol abuse Father Alcohol abuse Grandmother Diabetes Grandmother No problems noted. 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) Sleep apnea (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) Hyperlipidemia (Chronic 03/20/13) History of alcoholism (Chronic) Family hx of alcoholism (Chronic) History of tobacco use (Chronic) Gout (Chronic 03/03/14) Facial dermatitis (Chronic 04/17/17) Disorder of lung (Acute 11/14/12) Chronic venous stasis dermatitis of both lower extremities (Chronic 10/24/17) Atrial fibrillation (Chronic 03/03/14) Anticoagulated on warfarin (Chronic) Social History household members: spouse housing: house lives independently: No (pt doesn't drive, meals done ahead if will be alone) current occupational status: retired pets and animals: Yes (cat is currently missing) pets and animals: cat(s) frequency: daily Smoking/Tobacco Use Status: Former Tobacco Use how long ago did patient quit smoking: QUIT 04/06/2005 alcohol intake: never details: Unknown substance use type: does not use special uriah needs: No seatbelt use: always drive intox or ride w/ intox 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
[2018-05-31] MEDS: Lidocaine 2% Jelly 11 ML SYR UR (11:10)
--- NOTE | 2018-05-31 11:11 | PDOC.CMPRO ---
Care Management Progress Note S/O: Demar was reviewed during interdisciplinary rounds meeting. Per MD, Demar will remain on Tele as he is a FULL CODE. She has requested PC consult to assist navigating this conversation with Demar and his , Coby. Demar and his , Coby had a Palliative Care Consult with Dr. Ruvalcaba this morning and per report, Demar decided to change his code status to DNR/DNI. Per MD, Demar could discharge as soon as tomorrow with new referrals and medications. CM is attempting to prior authorize 60 rifaximin 550mg tablet prescribed PO BID. CM will continue to follow and support patient, family, and care team regarding discharge planning considerations. A: 68 year old male admitted to [facility] 05/25/18 for AMS P: Demar will return home when ready per MD at he and his 's wishes. He will have new orders for [facility] RN/PT/OT/RECREATION DIRECTOR and referral for oversight to CCC: Dali Samaniego at [facility]. CM will continue to follow and support patient, family, and care team regarding discharge planning considerations.
--- NOTE | 2018-05-31 11:16 | CMPROGNOTE_ITS ---
Care Management Progress Note S/O: Demar was reviewed during interdisciplinary rounds meeting. Per MD, Demar will remain on Tele as he is a FULL CODE. She has requested PC consult to assist navigating this conversation with Demar and his , Coby. Demar and his , Coby had a Palliative Care Consult with Dr. Ruvalcaba this morning and per report, Demar decided to change his code status to DNR/ DNI. Per MD, Demar could discharge as soon as tomorrow with new referrals and medications. CM is attempting to prior authorize 60 rifaximin 550mg tablet prescribed PO BID. CM will continue to follow and support patient, family, and care team regarding discharge planning considerations. A: 68 year old male admitted to [facility] 05/25/18 for AMS P: Demar will return home when ready per MD at he and his 's wishes. He will have new orders for [facility] RN/PT/OT/PROJECT SCIENTIST and referral for oversight to CCC : Dali Samaniego at [facility]. CM will continue to follow and support patient, family, and care team regarding discharge planning considerations.
--- NOTE | 2018-05-31 14:38 | DSE_ITS ---
Date of service: 06/01/18 Time of Service: 10:39 DS: Diagnosis Discharge Diagnosis (1) Hepatic encephalopathy: Status: Acute Asessment and Plan: on lactulose and rifaximine (2) Cirrhosis: Status: Chronic Asessment and Plan: cardiac +/- alcoholic (3) Chronic systolic CHF (congestive heart failure): Status: Chronic Asessment and Plan: EF 25-30%, etiology unknown, not a candidate for AICD (4) Cardiomyopathy: Status: Chronic (5) Non-sustained ventricular tachycardia: Status: Chronic Asessment and Plan: In setting of above; not a candidate for AICD. (6) Atrial fibrillation: Status: Chronic Asessment and Plan: no longer on anticoagulation; failed ablation (7) Pulmonary hypertension: Status: Chronic Asessment and Plan: Oxygen-dependent (8) BUCKY (obstructive sleep apnea): Status: Chronic Asessment and Plan: noncompliant with CPAP (9) CKD (chronic kidney disease): Status: Chronic (10) Urinary retention: Status: Acute Asessment and Plan: refusing june (11) MGUS (monoclonal gammopathy of unknown significance): Status: Chronic (12) Hyperlipidemia: Status: Chronic (13) History of alcoholism: Status: Chronic (14) Chronic venous stasis dermatitis of both lower extremities: Status: Chronic Asessment and Plan: RICHARD boots (15) Cellulitis of both lower extremities: Status: Chronic (16) Chronic respiratory failure with hypoxia: Status: Chronic Asessment and Plan: 2L of O2 at baseline (17) DNR (do not resuscitate): Status: Acute (18) DNI (do not intubate): Status: Acute Discharge Plan Disposition Patient Disposition: HOME W/HOME HEALTH SERVICE Condition: Fair Discharge Details Reason For Visit: ALTERED MENTAL STATUS Admit Date/Time: 05/25/18 16:19 Admit Provider: Michael Hernandez Attending Provider: Michael Hernandez Primary Care Provider: Destinee Lewis Hospital Course Hospital Course: Mr Malik is a 68 year old male with PMHx of chronic systolic CHF (latest EF is 25-30%)/cardiomyopathy, not a candidate for AICD, Atrial fibrillation, on coumadin prior to this admission, BUCKY, non compliant with CPAP, pulmonary hypertension, chronic hypoxic respiratory failure on 2L of O2, and distant history of alcohol abuse, who was admitted to [facility] on 05/25/18 for altered mental status, found to be secondary to hepatic encephalopathy/hyperammonemia. The patient did undergo a stroke workup due to the reported facial droop, which was negative. The encephalopathy was treated with several days of oral lactulose and, when the improvement was minimal, we initiated rifaximin with impressive improvement in encephalopathy to the point that his feels safe taking him home with home health nursing in place. The patient came to us in a status of Full Code. Telemetry monitoring revealed multiple runs of non-sustained VTach - not surprising considering his low ejection fraction. Repeat echo done on this admission continues to show EF in the 25-30% range. The patient is not a candidate for AICD, as previously determined by cardiology as outpatient - he had himself refused the workup and invasive procedures when his mental status was better. Palliative care was already consulted and had met with the patient as outpatient, but now that the arrhythmias were evident and the diagnosis of cirrhosis with hepatic encephalopathy was made, we have asked palliative care to consult as inpatient. The discussion resulted in the paient being made DNR/DNI with a COLST form in place. Additionally, the patient does not want feeding tubes. Initially he was agreable to having a june catheter (which he required due to urinary retention) , but he did ask for it to be taken out prior to discharge for comfort. In addition, the patient presented to [facility] with an elevated INR. Because the patient has cirrhosis and had not had an EGD to look for varices but could very well have them considering presence of hepatic encephalopathy, I discussed the risks and benefits of continued anticoagulation with , and the decision was made to stop anticoagulation. Finally, the patient has chronic venous stasis dermatitis in his BLE's and, on this admission, he also had cellulitis. He completed the course of IV rocephin. RICHARD boots were placed on BLE's prior to discharche and will need to be changed every 3 days by home health nursing. Additonally,the patient will benefit from home health PT/OT/CLASSIFIED AD TAKER. He will need to follow up with his PCP and with palliative care as outpatient. Home Meds and New Rx's Prescriptions: New rifaximin [Xifaxan] 550 mg Tablet 550 mg PO BID Qty: 60 RF: 0 lactulose 20 gram/30 mL Solution 20 g PO TID Qty: 1800 RF: 0 Continue potassium chloride 10 mEq tablet extended release 10 meq PO DAILY Qty: 90 RF: 3 magnesium oxide 400 MG tablet 400 mg PO BID Qty: 180 RF: 4 mupirocin calcium [Bactroban] 30 GM cream 1 applic Topical BID PRNQty: 30 RF: 2 digoxin 125 MCG tablet 1 tab PO DAILY Qty: 90 RF: 4 triamcinolone acetonide 15 GM cream 1 lorna Topical BID Qty: 1 RF: 2 tiotropium bromide [Spiriva with HandiHaler] 18 MCG capsule, w/inhalation device 18 mcg Inhalation DAILY PRNQty: 3 RF: 3 allopurinol 300 MG tablet 300 mg PO DAILY Qty: 90 RF: 3 torsemide 20 MG tablet 60 mg PO DAILY Qty: 180 RF: 6 metolazone 5 MG tablet 5 mg PO as directed Qty: 30 RF: 3 Metoprolol Succinate 50 MG TAB.ER.24H 50 mg PO DAILY Qty: 90 RF: 3 lisinopril 2.5 mg tablet 2.5 mg PO DAILY Qty: 90 RF: 3 simvastatin 40 mg tablet 40 mg PO DAILY Qty: 90 RF: 3 Discontinued warfarin 5 mg tablet 5 mg PO DAILY Qty: 100 RF: 3 Discharge Instructions Instructions: Lactulose (By mouth), Rifaximin (By mouth), Cirrhosis (DC), Hepatic Encephalopathy (DC) Additional Instructions: Patient is being discharged home with home health nursing, PT, OT, and manager of medical. Wound care instructions: Wash periwound skin with soap and water and pat dry. Cleanse wounds with anasept wound cleanser and gauze. Applay unna-z wrap, kerlix gauze wrap, then coflex light to BLE. Change Q 3 days. Elevate BLE above the level of the heart as much as tolerated. Return to the hospital with any fever, bleeding, chest pain, or shortness of breath. Activity:: Activity as Tolerated Equipment/Supplies:: No Equipment Needed Diet:: Low Sodium Discharge Orders Discharge Orders: Discharge Order (Routine); Ordered 06/01/18 Ordered By: Meri Cardozo Exam Narrative Exam Narrative: General: Obese Middle aged male, laying in bed, more alert, comfortable Neurological: A&Ox3, less confused, no focal deficits. Psychiatric: calm, cooperative Skin: facial jaundice, telangienctasias, acral cyanosis of the nose (chronic); BLE in RICHARD boots HEENT: EOMI, MMM, scleral icterus Cardiovascular: irregularly irregular, no m/r/g Lungs: CTAB Gastrointestinal: soft, nontender, nondistended Extremities: BLE cellulitis - improved - with chronic venous stasis changes; BLE in RICHARD boots DS: Data Vitals/I&O Vitals and I&O: Vital Signs Temperature 35.4 C L 05/31/18 11:15 Temperature Source Tympanic 05/31/18 11:15 Pulse 66 05/31/18 11:15 Pulse Rhythm Irregular 05/31/18 08:15 Respiratory Rate 20 05/31/18 11:15 Respiratory Effort 05/31/18 08:15 Respiratory Depth Normal 05/31/18 08:15 Respiratory Pattern Normal 05/31/18 08:15 Blood Pressure 130/86 05/31/18 11:15 Blood Pressure Position Sitting 05/25/18 15:02 Pulse Oximetry 96 05/31/18 11:15 Oxygen Delivery Method Room Air 05/31/18 11:15 Oxygen Flow Rate 0 05/31/18 11:15 Fraction of Inspired Oxygen (FIO2) 2 05/28/18 15:27 Pain Level 0 05/31/18 03:30 Comment 05/31/18 03:30 Intake & Output 05/30/18 05/31/18 05/31/18 23:59 11:59 23:59 Intake Total 480 / 480 240 / 240 240 / 240 Output Total 2014 3150 / 3150 825 / 825 Balance -1535 / -1535 -2910 / -2910 -585 / -585 Intake: Oral 480 / 480 240 / 240 240 / 240 Output: Urine 1565 / 1565 2750 / 2750 825 / 825 Post Void Residual 450 / 450 400 / 400 Other: Urine Color Yellow Yellow Light Jocelynn Urine Appearance Clear Clear Clear Urine Odor Normal None Comment Resident had voided spontaneously on the toilet at about 1515. I encouraged him to lay down in bed afterwards. I explained to him that I had a concern the pvr we were getting while he wassitting in the recliner were not accurate as the size of his belly might be making it difficult to obtain a true reading. Dr. Cardozo agreed at that time and wanted a reading with him lyhing down. The pvr after lying down was 347 cc . By order since the pvr was greater than 250 cc the patient would be straight cathed. Rationale was explained to the patient and he consented to the procedure. Supplies were gathered and this was done using sterile technique. Patient was cleansed and prepped and patient was cathed using a 14 fr. Return was gathered immediately with insertion. a sample of urine was gathered in the event Dr Cardozo wanted a UA. The rest was measured as well. Total out put was 450 cc of urine. patient was cleaned up and made comfortable. Dr. Cardozo was updated and she did indeed want a UA. Per her order patient is to be encouraged to void Q 6 hours and bladder scanned to monitor retention patient back in bed after voiding, bladder scanned for average of 175 ml perfromed by order after 3rd PVR greater than 250 cc in less than 24 hours. Explained to the patient and his spouse the benefit of having a june inserted. TThey both agreed it was in the patients best interest and agreed to have the june inderted. This was done using sterile technique. supplies were gathered, and ordered lidocaine was gathered to assist with keeping pain controlled. sterile area was set up, , patient was cleansed, lido iván applied, and catheter was inserted. An immediate reurn of 325 cc of urine as gathered in the collection bag, patient was made comfrtable and cleaned up he was left with the bed in a low position spouse present, call caba in reach Stool Size Small Stool Characteristics Soft Formed Voiding Methods Toilet Toilet Completed studies during hospitalization [Text1]: CXR 05/25/18: No acute pulmonary process. CT head 05/25/18: No acute intracranial process. CT Abdomen/pelvis 05/27/18: 1. Lobulated contour of the liver raising the question of hepatic cirrhosis. 2. No significant abdominal or pelvic ascites 3. Small bilateral pleural effusions, right greater than left. 4. Cholelithiasis 5. Prostate gland enlargement. Urology consult may be considered. US carotid 05/28/18: No evidence of a hemodynamically significant cervical carotid artery stenosis. MRI Brain 05/28/18: 1. Study limitations due to patient motion artifact. 2. Cerebral atrophy and small vessel ischemic disease. 3. No evidence of an acute infarct or hemorrhage. MRA brain 05/28/18: Moderate narrowing of the distal M1 segment of the left middle cerebral artery. US abdomen 05/28/18: Suboptimal examination. Cholelithiasis. No evidence of biliary ductal dilatation. Echo 05/28/18: 1. Left ventricle: The cavity size was normal. Systolic function was severely reduced. The estimated ejection fraction was 25-30%. Diffuse hypokinesis. 2. Ventricular septum: The contour showed diastolic flattening and systolic flattening. These changes are consistent with RV volume and RV pressure overload. 3. Mitral valve: There was mild regurgitation. 4. Right ventricle: The cavity size was severely dilated. Systolic function was severely reduced. 5. Right atrium: The atrium was severely dilated. 6. Atrial septum: No defect or patent foramen ovale was identified. 7. Tricuspid valve: There was severe regurgitation. 8. Pulmonary arteries: Pulmonary systolic pressure was in the range of 65mm Hg to 75mm Hg. 9. Inferior vena cava: The vessel was patent and mildly dilated. The respirophasic diameter changes were blunted (less than 50%), consistent with normal central venous pressure.
[2018-05-31] MEDS: Torsemide 20 MG TAB PO (15:34)
--- NOTE | 2018-05-31 18:45 | PGE_ITS ---
Date of Service Date of service: 05/31/18 Time of Service: 11:35 Assessment and Plan (1) Altered mental status: Current visit: Yes Status: Acute Due to hepatic encephalopathy in setting of cirrhosis (cardiac or alcoholic or both). No evidence of acute CVA per MRI. Continue lactulose and rifaximine, with which the patient is finally starting to clear up. (2) Non-sustained ventricular tachycardia: Current visit: Yes Status: Acute Not a candidate for AICD, per cardiology. Made DNR/DNI today and taken off telemetry. (3) Congestive heart failure: Current visit: Yes Status: Chronic AICD discussion above Continue current regimen of BB, ASA, and statin. Conitnue Torsemide with twice weekly Metolazone. Focus on controlling symptoms. (4) CKD (chronic kidney disease): Current visit: Yes Status: Chronic May follow up as outpaient (5) BUCKY (obstructive sleep apnea): Current visit: Yes Status: Chronic CPAP noncompliant. Reported significant history of PHTN. (6) Atrial fibrillation: Current visit: Yes Status: Chronic Continue BB and Digoxin. No more anticoagulation as per my conversation with family. (7) Anticoagulated on warfarin: Current visit: Yes Status: Chronic Will no longer anticoagulate. (8) DVT prophylaxis: Current visit: Yes Status: Acute Concern for chemical dvt ppx as we do not know whether or not the patient has varices. (9) Advanced directives, counseling/discussion: Current visit: Yes Status: Acute DNR/DNI - palliative care assistance appreciated. Subjective Interval history since last seen: The patient was made DNR, DNI after a meeting with palliative care. Retaining urine - agreable to having a june catheter placed. Denied dizziness, chest pain, shortness of breath, nausea, vomiting. Per , his mental status is much clearer today. Exam Narrative Exam Narrative: General: Obese Middle aged male, laying in bed, more alert, comfortable Neurological: A&Ox2, less confused, no focal deficits. Psychiatric: calm, cooperative Skin: facial jaundice, telangienctasias, acral cyanosis of the nose (chronic); BLE chronic venous stasis dermatitis with blister on RLE and mild cellulitis. HEENT: EOMI, MMM, scleral icterus Cardiovascular: irregularly irregular, no m/r/g Lungs: CTAB Gastrointestinal: soft, nontender, nondistended Extremities: BLE cellulitis - improved - with chronic venous stasis changes; + 1 BLE edema Objective Objective Clinical Data: Vital Signs Temperature 35.4 C L 05/31/18 11:15 Temperature Source Tympanic 05/31/18 11:15 Pulse 66 05/31/18 11:15 Pulse Rhythm Irregular 05/31/18 08:15 Respiratory Rate 20 05/31/18 11:15 Respiratory Effort 05/31/18 08:15 Respiratory Depth Normal 05/31/18 08:15 Respiratory Pattern Normal 05/31/18 08:15 Blood Pressure 130/86 05/31/18 11:15 Blood Pressure Position Sitting 05/25/18 15:02 Pulse Oximetry 96 05/31/18 11:15 Oxygen Delivery Method Room Air 05/31/18 11:15 Oxygen Flow Rate 0 05/31/18 11:15 Fraction of Inspired Oxygen (FIO2) 2 05/28/18 15:27 Pain Level 0 05/31/18 03:30 Comment 05/31/18 03:30 Intake & Output 05/30/18 05/31/18 05/31/18 23:59 11:59 23:59 Intake Total 480 / 480 240 / 240 240 / 240 Output Total 2014 3150 / 3150 1150 / 1150 Balance -1535 / -1535 -2910 / -2910 -910 / -910 Intake: Oral 480 / 480 240 / 240 240 / 240 Output: Urine 1565 / 1565 2750 / 2750 1150 / 1150 Post Void Residual 450 / 450 400 / 400 Other: Urine Color Yellow Yellow Dark Jocelynn Urine Appearance Clear Clear Clear Urine Odor Normal None Comment Resident had voided spontaneously on the toilet at about 1515. I encouraged him to lay down in bed afterwards. I explained to him that I had a concern the pvr we were getting while he wassitting in the recliner were not accurate as the size of his belly might be making it difficult to obtain a true reading. Dr. Cardozo agreed at that time and wanted a reading with him lyhing down. The pvr after lying down was 347 cc . By order since the pvr was greater than 250 cc the patient would be straight cathed. Rationale was explained to the patient and he consented to the procedure. Supplies were gathered and this was done using sterile technique. Patient was cleansed and prepped and patient was cathed using a 14 fr. Return was gathered immediately with insertion. a sample of urine was gathered in the event Dr Cardozo wanted a UA. The rest was measured as well. Total out put was 450 cc of urine. patient was cleaned up and made comfortable. Dr. Cardozo was updated and she did indeed want a UA. Per her order patient is to be encouraged to void Q 6 hours and bladder scanned to monitor retention patient back in bed after voiding, bladder scanned for average of 175 ml blood clot noted Stool Size Small Stool Characteristics Soft Formed Voiding Methods Toilet Toilet Laboratory Results WBC 7.21 k/cumm (4.4-10.8) 05/27/18 07:15 RBC 4.90 m/cumm (4.50-6.00) 05/27/18 07:15 Hgb 15.9 g/dL (13.5-17.5) 05/27/18 07:15 Hct 50.0 % (40.0-50.0) 05/27/18 07:15 MCV 102.0 fL (80-95) H D 05/27/18 07:15 MCH 32.4 pg (27.0-33.0) 05/27/18 07:15 MCHC 31.8 g/dL (32.0-36.0) L 05/27/18 07:15 RDW 16.8 % (11.8-14.1) H 05/27/18 07:15 Plt Count 221 x1000/uL (130-400) 05/27/18 07:15 MPV 10.0 fL (8.0-11.0) 05/27/18 07:15 Immature Gran % 0.1 05/27/18 07:15 Neutrophils % 71.4 05/27/18 07:15 Lymphocytes % 16.9 05/27/18 07:15 Monocytes % 9.4 05/27/18 07:15 Eosinophils % 1.4 05/27/18 07:15 Basophils % 0.8 05/27/18 07:15 Absolute Neutrophils 5.14 k/cumm (1.2-6.7) 05/27/18 07:15 Absolute Lymphocytes 1.22 k/cumm (1.2-3.4) 05/27/18 07:15 Absolute Monocytes 0.68 k/cumm (0.11-0.7) 05/27/18 07:15 Absolute Eosinophils 0.10 k/cumm (0.0-0.7) 05/27/18 07:15 Absolute Basophils 0.06 k/cumm (0.0-0.2) 05/27/18 07:15 PT 19.8 sec (9.3-10.8) H 05/30/18 07:00 INR 2.1 (1.0-3.5) 05/30/18 07:00 Sodium 131 mmol/L (136-145) L 05/30/18 07:00 Potassium 3.4 mmol/L (3.5-5.1) L 05/30/18 07:00 Chloride 90 mmol/L (98-107) L 05/30/18 07:00 Carbon Dioxide 35.7 mmol/L (21.0-32.0) H 05/30/18 07:00 Anion Gap 5.3 mmol/L (3-11) 05/30/18 07:00 BUN 60 mg/dL (7-18) H 05/30/18 07:00 Creatinine 1.91 mg/dL (0.70-1.30) H 05/30/18 07:00 Estimated GFR/1.73 m2 35.11 (mL/min/1.73m2) 05/30/18 07:00 Glucose 123 mg/dL (70-100) H 05/30/18 07:00 Calcium 9.0 mg/dL (8.5-10.1) 05/30/18 07:00 Magnesium 2.1 mg/dL (1.8-2.4) 05/30/18 07:00 Total Bilirubin 2.1 mg/dL (0.2-1.0) H 05/29/18 06:45 Conjugated Bilirubin 0.97 mg/dL (0.00-0.20) H 05/29/18 06:45 AST 46 U/L (15-37) H 05/29/18 06:45 ALT 26 U/L (12-78) 05/29/18 06:45 Alkaline Phosphatase 318 U/L (46-116) H 05/29/18 06:45 Ammonia 69 umol/L (11-32) H 05/28/18 07:15 Troponin I 0.04 ng/mL (0.00-0.06) 05/26/18 08:00 Total Protein 7.8 g/dL (6.4-8.2) 05/29/18 06:45 Albumin 2.5 g/dL (3.4-5.0) L 05/29/18 06:45 Prostate Specific Ag 8.9 ng/ml (0-4.5) H 05/28/18 07:15 Vitamin B12 738 pg/mL (193-986) 05/25/18 10:20 Folate 14.9 ng/mL (8.6-20.0) 05/25/18 10:20 TSH 2.85 uIU/mL (0.358-3.74) 05/25/18 15:16 Urine Color Yellow (Yellow) 05/25/18 15:49 Urine Clarity Clear 05/25/18 15:49 Urine pH 7.0 (5-8) 05/25/18 15:49 Ur Specific [place] 1.015 (1.005-1.025) 05/25/18 15:49 Urine Protein Negative mg/dL (Negative) 05/25/18 15:49 Urine Ketones Negative mg/dL (Negative) 05/25/18 15:49 Urine Blood Trace-lysed (Negative) H 05/25/18 15:49 Urine Nitrite Negative (Negative) 05/25/18 15:49 Urine Bilirubin Negative (Negative) 05/25/18 15:49 Urine Urobilinogen 0.2 EU/dL (Up TO 0.2) 05/25/18 15:49 Ur Leukocyte Esterase Negative (Negative) 05/25/18 15:49 Urine RBC 5-10 (0-2) H 05/25/18 15:49 Urine WBC 0-2 HPF (0-5) 05/25/18 15:49 Ur Epithelial Cells Negative HPF (Negative) 05/25/18 15:49 Urine Crystals Negative HPF (Negative) 05/25/18 15:49 Urine Bacteria Rare HPF (Negative) 05/25/18 15:49 Urine Casts Negative LPF (Negative) 05/25/18 15:49 Urine Mucus Negative (Negative) 05/25/18 15:49 Ur Culture Indicated? No 05/25/18 15:49 Urine Glucose Negative mg/dL (Negative) 05/25/18 15:49 Digoxin 1.10 ng/mL (0.90-2.00) 05/25/18 10:20 A.phagocytophil DNA PCR Negative (Negative) 05/27/18 07:15 B. divergens/MO-1 PCR Negative (Negative) 05/27/18 07:15 Babesia duncani (PCR) Negative (Negative) 05/27/18 07:15 Babesia microti DNA PCR Negative (Negative) 05/27/18 07:15 Borrelia (PCR) Negative (Negative) 05/27/18 07:15 Lyme Disease Antibody Negative 05/27/18 07:15 E.chaffeensis DNA (PCR) Negative (Negative) 05/27/18 07:15 E.ewingii/canis DNA PCR Negative (Negative) 05/27/18 07:15 E. muris-like DNA (PCR) Negative (Negative) 05/27/18 07:15 Hep Bs Antigen Negative (NEGAT) 05/28/18 07:15 Hep Bs Antibody Negative 05/28/18 07:15 Hep Bs Antibody, Quant <3.1 mIU/mL 05/28/18 07:15 Hep B Core Total Ab Negative (NEGAT) 05/28/18 07:15 Hepatitis C Antibody Negative (NEGAT) 05/28/18 07:15
--- NOTE | 2018-05-31 19:06 | WOUNDCARE ---
Wound Care Report: This nurse was consulted to recommend care for wounds on patient's BLE. Patient is a 68 year old male admitted with AMS, secondary to hepatic encephalopathy. He has a history of CHF, CKD, atrial fibrillation, and chronic venous stasis dermatitis. See patient's history and physical for the rest of patient's history. Patient's history and physical, labs, and chart reviewed. It was reported to this nurse that patient developed blisters to BLE, which burst and opened up to multiple wounds. To patient's bilateral lower legs, skin appears bright red and feels warm, but not hot. Bilateral lower legs are not tender to palpation. Dry scaly skin noted to bilateral lower legs. Debrisoft applied to bilateral lower legs to remove skin. + 2 pitting edema noted to bilateral ankles and feet. Toes are warm, red in color, and have full sensation and mobility. Pedal pulses are palpable. To patient's anterior right lower leg is noted to be a fluid filled blister measuring 2.1 x 2.2 cm. Periwound skin is bright red. Patient has three wounds present to posterior right lower leg. The superior wound measured 3.1 x 3.2 x <0.1 cm. Wound bed is 95% nongranulating red tissue and 5% white slough. Debrisoft applied to wound bed. Small amount of serous drainage noted to dressing upon removal. Periwound skin is warm and dark pink. Medial wound measured 2.2 x 0.5 x <0.1cm. Wound bed is 100% nongranulating red tissue. Pinpoint epithelial island noted within wound bed. No wound drainage noted to dressing upon removal. Periwound skin is warm and pink. Inferior wound measured 3.5 x 5.5 x <0.1cm. Wound bed is 100% red nongranulating tissue. No wound drainage noted to dressing upon removal. Periwound skin is warm and pink. To patient's lateral left lower leg is noted to be two wounds. Superior wound measured 1.3 x 1.5 x < 0.1 cm. Wound bed is 75% firmly adherent yellow slough and 25% red nongranulating tissue. Periwound skin is noted to be warm and dark pink. No drainage noted upon removal of dressing. Debrisoft applied to wound bed. Inferior wound measured 3 x 4 x <0.1 cm. Wound bed is 85% red nongranulating tissue and 15% firmly adherent yellow slough. Debrisoft applied to wound bed. Moderate amount of serous drainage not to be draining from wound. Periwound skin noted to be pink and warm. MOMO obtained and was found to be 0.56. This nurse recommends the following: Wash periwound skin with soap and water and pat dry. Cleanse wounds with anasept wound cleanser and gauze. Apply unna-z wrap, then kerlix wrap (to help absorb drainage), and then coflex light (to apply compression) to bilateral lower extremities. Change Q3days. Elevate bilateral lower extremities above level of heart as much as patient tolerates to help reduce swelling. Assess circulation to bilateral lower extremities qshift.
[2018-05-31] MEDS: Normal Saline Flush 10 ML SYR IVP (19:59)
[2018-05-31] MEDS: Pantoprazole 40 MG VIAL IVP (19:59)
[2018-05-31] MEDS: Simvastatin 40 MG TAB PO (19:59)
[2018-06-01 00:18] VITALS: BP 100/61; PULSE 72; RESP 21; TEMP 36.3; O2SAT 90
[2018-06-01 04:13] VITALS: BP 122/64; PULSE 89; RESP 16; TEMP 36; O2SAT 94
[2018-06-01 07:40] VITALS: BP 121/79; PULSE 77; RESP 17; TEMP 36.2; O2SAT 93; O2SAT 98
[2018-06-01] MEDS: Lactulose 20 GM/30 ML CUP PO (07:54)
[2018-06-01] MEDS: Potassium Chloride 10 MEQ CAPCR 40 MEQ PO (07:55)
[2018-06-01] MEDS: Lisinopril 5 MG TAB 2.5 MG PO (07:55)
[2018-06-01 07:56] VITALS: PULSE 77
[2018-06-01] MEDS: Torsemide 20 MG TAB 40 MG PO (07:56)
[2018-06-01] MEDS: Digoxin 0.125 MG TAB PO (07:56)
[2018-06-01] MEDS: Metoprolol CR 50 MG TABCR PO (07:56)
[2018-06-01] MEDS: Allopurinol 300 MG TAB PO (07:56)
[2018-06-01] MEDS: Magnesium Oxide 400 MG TAB PO (07:56)
[2018-06-01] MEDS: Rifaximin 550 MG TAB PO (07:56)
[2018-06-01 11:33] VITALS: BP 144/94; PULSE 64; RESP 18; TEMP 36.2; O2SAT 98
--- NOTE | 2018-06-01 12:05 | HHF2F_ITS ---
1. Encounter Date and Reason I certify that CATA STOCKTON was seen by Meri Cardozo on 06/01/18 and that I had a [id number] encounter with this patient that meets the physician face to face encounter requirements. 2. Clinical Findings Supporting Skilled Need and Homebound Status I certify that home health services are medically necessary, include either intermittent prison and/or physical/speech therapy, and that this patient is homebound in that absences from the home require considerable and taxing effort and are infrequent or of short duration, or are attributable to the need to receive medical care. [X] (a) Attached documentation from encounter provides clinical findings supporting skilled need and homebound status (including what assistance patient requires to leave the home). The encounter with the patient was in whole, or in part, for the following medical condition, which is the primary reason for home health care: ALTERED MENTAL STATUS Penitentiary: medication management, wound care. Wound care instructions: Wash periwound skin with soap and water and pat dry. Cleanse wounds with anasept wound cleanser and gauze. Applay unna-z wrap, kerlix gauze wrap, then coflex light to BLE. Change Q 3 days. Elevate BLE above the level of the heart as much as tolerated. Physical Therapy: eval and treat Occupational Therapy: eval and treat Contact Representative: evaluate for any social issues at home Homebound: unable to leave home without assistance 3. Certification and Authentication I certify that I composed the above information based on my clinical judgement relating to this patient's medical condition and, if applicable, clinical findings communicated to me by the NPP or inpatient physician who performed the Home Health Referral. All further orders will be obtained through Destinee Lewis NP ( Community Based Physician - PCP)
--- NOTE | 2018-06-01 14:42 | PDOC.CMDIS ---
LACE Index Scoring Tool - Questions: Length of Stay (in days): 7 - 13 Acuity (Admit via E.D.?): Yes Comorbidities: Congestive Heart Failure, Any Tumor, Liver or Renal Disease E.D. Visits: 1 - Answers: Total Score: 14 Risk of Readmission: High Risk Care Management Discharge Reason for Hospitalization: Altered Mental Status. Discharge Plan: Demar will return home when ready per MD at he and his 's wishes. 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 BRIAN requested prescription cost support from Dali Samaniego:[facility]. CM faxed orders including wound consult information to [facility]. CM supported coordination of prescription requiring prior authorization for Xifaxan through [facility] with a copay of $718.14. CM reviewed discharge plan with Demar and Azul; he will resume O2 support through [facility] and CM returned his portable oxygen tank to him from the nurses station. Azul and Demar reported feeling confident about returning home and caring for Demar's needs. Patient/Family Education Needs: Review discharge instructions, discuss self care needs-Ask Me Three. Services Needed at Discharge: Home Health Care Services (RN/PT/OT/EARTH SCIENCE TEACHER), Oxygen Therapy (Resume [facility] )
--- NOTE | 2018-06-01 15:04 | CMDISCH_ITS ---
LACE Index Scoring Tool - Questions: Length of Stay (in days): 7 - 13 Acuity (Admit via E.D.?): Yes Comorbidities: Congestive Heart Failure, Any Tumor, Liver or Renal Disease E.D. Visits: 1 - Answers: Total Score: 14 Risk of Readmission: High Risk Care Management Discharge Reason for Hospitalization: Altered Mental Status. Discharge Plan: Demar will return home when ready per MD at he and his 's wishes. 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 BRIAN requested prescription cost support from Dali Samaniego:[facility]. CM faxed orders including wound consult information to [facility]. CM supported coordination of prescription requiring prior authorization for Xifaxan through [facility] with a copay of $718.14. CM reviewed discharge plan with Demar and Azul; he will resume O2 support through [facility] and CM returned his portable oxygen tank to him from the nurses station. Azul and Demar reported feeling confident about returning home and caring for Demar's needs. Patient/Family Education Needs: Review discharge instructions, discuss self care needs-Ask Me Three. Services Needed at Discharge: Home Health Care Services (RN/PT/OT/COUNTERINTELLIGENCE AGENT), Oxygen Therapy ([facility]ume [employer] )
== END 2018-06-01 14:02 | disposition home health service (06) | DRG 442 ==
LOC: ER 17:22 → MS 05-28 12:22
PROVIDERS: Admitting Provider Internal Medicine; Emergency Provider Student in an Organized Health Care Education/Training Program; Visit Provider Internal Medicine
DX: K72.90 Hepatic failure, unspecified without coma (principal); E72.20 Disorder of urea cycle metabolism, unspecified; I50.22 Chronic systolic (congestive) heart failure; I42.9 Cardiomyopathy, unspecified; I47.2 Ventricular tachycardia; J96.11 Chronic respiratory failure with hypoxia; R41.82 Altered mental status, unspecified; F10.21 Alcohol dependence, in remission; K70.30 Alcoholic cirrhosis of liver without ascites; K76.1 Chronic passive congestion of liver; I48.91 Unspecified atrial fibrillation; Z79.01 Long term (current) use of anticoagulants; G47.33 Obstructive sleep apnea (adult) (pediatric); R79.1 Abnormal coagulation profile; T45.515A Adverse effect of anticoagulants, initial encounter; R29.810 Facial weakness; I87.2 Venous insufficiency (chronic) (peripheral); I08.1 Rheumatic disorders of both mitral and tricuspid valves; D47.2 Monoclonal gammopathy; I27.20 Pulmonary hypertension, unspecified; Z91.19 Patient's noncompliance with other medical treatment and regimen; N18.9 Chronic kidney disease, unspecified; R33.9 Retention of urine, unspecified; E78.5 Hyperlipidemia, unspecified; Z99.81 Dependence on supplemental oxygen; Z66 Do not resuscitate; Z51.5 Encounter for palliative care
CPT/HCPCS: 36415; 70544; 80048; 80053; 80076; 86704; 86706; 86803; 87340; 93005; 93306; 94640; 96360; 99223; 99232; 99239; 99254; 99255; 99285; 70450; 70551; 71046; 74176; 76700; 80162; 81003; 81015; 82140; 82607; 82746; 83735; 84153; 84443; 84484; 85025; 85610; 86618; 87798; 93010; 93880; 99284; J0696

== ENCOUNTER → 2018-05-28 07:53 | Outpatient (BNVA) | payer OTHER, SELFPAY | PROVIDERS: Visit Provider Psychiatry & Neurology Neurology | DX: R69 Illness, unspecified (principal) ==

== ENCOUNTER → 2018-05-30 08:17 | Outpatient (BNVA) | payer OTHER, SELFPAY | PROVIDERS: Visit Provider Student in an Organized Health Care Education/Training Program | DX: R69 Illness, unspecified (principal) ==

== ENCOUNTER 2018-06-07 13:27 | Outpatient (REF) | payer OTHER, SELFPAY ==
[2018-06-07 14:09] LABS: Bilirubin Negative (Negative); Blood Moderate (Negative); Clarity Clear; Glucose Negative (Negative); Ketones Negative (Negative); Leukocyte Esterase Negative (Negative); Nitrite Negative (Negative); Specific Gravity 1.015 (1.005-1.025); Urobilinogen 0.2 EU/dL (Up TO 0.2); pH 7.5 (5-8)
[2018-06-07 14:35] LABS: Bacteria Negative HPF (Negative); C & S Indicated? No; Casts Negative LPF (Negative); Crystals Negative HPF (Negative); Epithelial Cells Negative HPF (Negative); Mucus Negative (Negative); WBC Negative HPF (0-5)
== END 2018-06-07 13:47 ==
LOC: LBN 13:27
PROVIDERS: Visit Provider Family Medicine
DX: R30.0 Dysuria (principal)
CPT/HCPCS: 81003; 81015

== ENCOUNTER 2018-07-10 14:23 | Emergency (ER) | payer OTHER, SELFPAY ==
[2018-07-10] VITALS (9 sets, daily range): BP systolic 101–106; BP diastolic 57–58; PULSE 79–107; RESP 19–28; TEMP 37.5; O2SAT 91–97
--- NOTE | 2018-07-10 14:48 | NUR.NOTE ---
MD Westfall is at the bedside, pt. states I didn't sleep last night because of discomfort. When asked specifically where you name it it was there. EKG completed. Pt. is on the monitor, irregular HR.
--- NOTE | 2018-07-10 14:52 | DI.RAD_ITS ---
SYMPTOM/DIAGNOSIS: COUGH CHEST: The lungs are unremarkable. The pleural spaces are intact with no pneumothorax or effusion. Cardiomegaly is identified with no significant interval change when compared with prior images. The bony structures are unremarkable. IMPRESSION: No evidence of acute cardiopulmonary disease.
--- NOTE | 2018-07-10 15:00 | ED.GENADUL_ITS ---
Discharge Plan Disposition Patient Disposition: HOME Condition: Stable Discharge Details Chief Complaint: GenMedical Clinical Impression: General weakness, Hypokalemia Primary Care Provider: Ghazala Ruvalcaba ED Provider: Wil Westfall Home Meds and New Rx's Prescriptions: New levofloxacin 750 mg tablet 750 mg PO DAILY Qty: 6 RF: 0 Continued potassium chloride 10 mEq tablet extended release 10 meq PO DAILY Qty: 90 RF: 3 tamsulosin 0.4 mg capsule 0.8 mg PO DAILY Qty: 60 RF: 5 magnesium oxide 400 MG tablet 400 mg PO BID Qty: 180 RF: 4 mupirocin calcium [Bactroban] 30 GM cream 1 applic Topical BID PRNQty: 30 RF: 2 triamcinolone acetonide 15 GM cream 1 lorna Topical BID Qty: 1 RF: 2 tiotropium bromide [Spiriva with HandiHaler] 18 MCG capsule, w/inhalation device 18 mcg Inhalation DAILY PRNQty: 3 RF: 3 allopurinol 300 MG tablet 300 mg PO DAILY Qty: 90 RF: 3 torsemide 20 MG tablet 60 mg PO DAILY Qty: 180 RF: 6 metolazone 5 MG tablet 5 mg PO as directed Qty: 30 RF: 3 Metoprolol Succinate 50 MG TAB.ER.24H 50 mg PO DAILY Qty: 90 RF: 3 lisinopril 2.5 mg tablet 2.5 mg PO DAILY Qty: 90 RF: 3 simvastatin 40 mg tablet 40 mg PO DAILY Qty: 90 RF: 3 lorazepam 0.5 mg tablet 0.5 mg PO HS PRN Qty: 30 RF: 0 lactulose 20 gram/30 mL solution 20 g PO TID Qty: 1800 RF: 6 rifaximin [Xifaxan] 550 mg tablet 550 mg PO BID Qty: 60 RF: 5 digoxin 125 mcg tablet 0.125 mg PO DAILY Qty: 90 RF: 3 Discharge Instructions Instructions: Hypokalemia (ED), Weakness (ED) Additional Instructions: You are being treated for a possible pneumonia follow up with your primary care provider within a week. You should have your potassium rechecked if you have severe worsening shortness of breath or chest pain/pressure return to the emergency department Medical Decision Making 68 yo male with multiple medical problems on oxygen chronically comes in with chief complaint of not feeling well today with no appetite that started today. He denies fevers, chest pain, shortness of breath on my exam. Denies any abdominal pain and has no tenderness. He is speaking in full setnences in no distress. He does appear mild dehydrated so will provide IVF gently given his hx of chf and also eval for electrolyte abnormalities and anemia. No chest pain or sob so doubt acs. No focal weakness or deficits to suggest cva at this time pt's lab work shows no acute significant changes. Xray shows atelectasis but can't exclude infiltate. He feels well and has no complaints on my exam but does state he has had a cough for a few days. no fevers and is hd stable. I did offer admission for tx of possible pna but he declined and would like to try outpatient management, has capacity to make his own decisions. HE will return if he worsens and advised f/u with pcp within a week Differential Diagnosis anemia, ro, electrolyte abnormality Imaging Data Radiologic Study: Attestation: I personally reviewed and interpreted this imaging study as follows: Imaging: X-Ray Radiologist's impression: 1. There is new opacification along the lateral aspect of the left hemidiaphragm and left lower heart border which could represent atelectasis or infection. The left aspect of the heart is poorly penetrated on the frontal radiograph. Overlying atelectasis/infection is not excluded. 2. Additional unchanged findings as above. If symptoms remain concerning, cross- sectional imaging could be obtained. Lab Data Lab results reviewed: Yes I reviewed the patient's lab results. ECG Data Attestation: I personally reviewed and interpreted this ECG (s) as follows: Prior ECG tracings: not available for review Interpretation: afib, rate of 90, qtc 453, no acute ischemic findings HPI General Mode of arrival: wheelchair . Date/Time Provider Initiated Documentation: 07/10/18 14:24 . Limitations to Documentation: no limitations . Information obtained by: patient . History of Present Illness 68 year old M presents to the emergency department with the chief complaint of not feeling well, Patient started experiencing this day(s) (1) and it has been constant. No relieving factors improve symptom(s), No exacerbating factors reported . Patient notes no other symptoms.. Patient did receive the following treatments prior to arrival, none Related Data Home Medications Medication Instructions Recorded Confirmed magnesium oxide 400 mg PO BID #180 tab-cap 04/08/15 05/25/18 mupirocin calcium [Bactroban] 1 applic TOPICAL BID PRN #30 gm 08/19/15 05/25/18 triamcinolone acetonide 1 lorna TOPICAL BID #1 tube 04/17/17 05/25/18 tiotropium bromide [Spiriva with 18 mcg INHALATION DAILY PRN #3 10/19/17 05/25/18 HandiHaler] tab-cap allopurinol 300 mg PO DAILY #90 tab-cap 10/27/17 05/25/18 metolazone 5 mg PO as directed #30 tab-cap 12/13/17 05/25/18 torsemide 60 mg PO DAILY #180 tab-cap 12/13/17 05/25/18 lisinopril 2.5 mg tablet 2.5 mg PO DAILY #90 tab 04/04/18 05/25/18 simvastatin 40 mg PO DAILY #90 tab-cap 04/17/18 05/25/18 potassium chloride ER 10 mEq 10 meq PO DAILY #90 tab 05/20/18 05/25/18 tablet,extended release lorazepam 0.5 mg tablet 0.5 mg PO HS PRN #30 tab 06/13/18 lactulose 20 gram/30 mL oral 20 g PO TID #1800 g 06/19/18 solution rifaximin 550 mg tablet 550 mg PO BID #60 tab 06/19/18 tamsulosin 0.4 mg capsule 0.8 mg PO DAILY #60 cap 06/20/18 06/20/18 digoxin 125 mcg tablet 0.125 mg PO DAILY #90 tab 06/29/18 levofloxacin 750 mg PO DAILY #6 tab 07/10/18 Previous Rx's Medication Instructions Recorded triamcinolone acetonide 1 lorna TOPICAL BID #1 tube 04/17/17 allopurinol 300 mg PO DAILY #90 tab-cap 10/27/17 metolazone 5 mg PO as directed #30 tab-cap 12/13/17 torsemide 60 mg PO DAILY #180 tab-cap 12/13/17 lisinopril 2.5 mg tablet 2.5 mg PO DAILY #90 tab 04/04/18 simvastatin 40 mg PO DAILY #90 tab-cap 04/17/18 potassium chloride ER 10 mEq 10 meq PO DAILY #90 tab 05/20/18 tablet,extended release lorazepam 0.5 mg tablet 0.5 mg PO HS PRN #30 tab 06/13/18 lactulose 20 gram/30 mL oral 20 g PO TID #1800 g 06/19/18 solution rifaximin 550 mg tablet 550 mg PO BID #60 tab 06/19/18 tamsulosin 0.4 mg capsule 0.8 mg PO DAILY #60 cap 06/20/18 digoxin 125 mcg tablet 0.125 mg PO DAILY #90 tab 06/29/18 levofloxacin 750 mg PO DAILY #6 tab 07/10/18 Allergies Allergy/AdvReac Type Severity Reaction Status Date / Time heparin AdvReac Severe decreased Verified 05/15/18 13:30 renal function ? Iodine AdvReac Intermediate Rash Uncoded 02/25/16 08:45 General Stated Complaint: GenMedical SUSIE: 3 Review of Systems Review of Systems All systems reviewed & are unremarkable except as noted in HPI and below Constitutional Denies chills and Denies fever(s) Gastrointestinal Denies abdominal pain, Denies nausea and Denies vomiting Musculoskeletal Denies joint swelling Psychiatric Denies depression [facility] 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 Grandfather No problems noted. Mother Diabetes Alcohol abuse Father Alcohol abuse Grandmother Diabetes Grandmother No problems noted. Social History household members: spouse housing: house lives independently: No (pt doesn't drive, meals done ahead if will be alone) current occupational status: retired pets and animals: Yes (cat is currently missing) pets and animals: cat(s) frequency: daily Smoking/Tobacco Use Status: Former Tobacco Use how long ago did patient quit smoking: QUIT 04/06/2005 alcohol intake: never details: Unknown substance use type: does not use special uriah needs: No seatbelt use: always drive intox or ride w/ intox line haul driver: No working smoke detector in home: Yes fire extinguisher in home: Yes carbon monox detector in home: Yes firearms in home: No Exam Const General: no acute distress Orientation: alert HENMT Head: normal to inspection Ears: external ears normal General nose exam: external nose normal Mouth: moist mucous membranes Eyes General: appearance normal, both eyes and all related structures Neck Neck: normal visual inspection Resp Effort & Inspection: normal respiratory effort and able to speak in complete sentences Cardio Rate: regular rate Skin General skin exam: no rashes or lesions noted Neuro General: alert and oriented x3 Extrem General: normal to inspection Psych Mental Status: mental status grossly normal Course Vital Signs Temperature 37.5 C 07/10/18 14:32 Pulse 107 H 07/10/18 14:32 Respiratory Rate 24 07/10/18 14:32 Blood Pressure 106/57 L 07/10/18 14:32 Pulse Oximetry 96 07/10/18 14:32 Temperature 37.5 C 07/10/18 14:32 Temperature Source Temporal Artery Scan 07/10/18 14:32 Pulse 107 H 07/10/18 14:32 Respiratory Rate 24 07/10/18 14:32 Blood Pressure 106/57 L 07/10/18 14:32 Blood Pressure Position Sitting 07/10/18 14:32 Pulse Oximetry 96 07/10/18 14:32 Oxygen Delivery Method Nasal Cannula 07/10/18 14:32 Oxygen Flow Rate 2 07/10/18 14:32 Pain Level 0 07/10/18 14:32
[2018-07-10] MEDS: Normal Saline 250 ML IV (15:06)
[2018-07-10 15:13] LABS: Abs Immature Grans 0.02 k/cumm (0.0-0.09); Absolute Basophil Count 0.02 k/cumm (0.0-0.2); Absolute Eosinophil Count 0.03 k/cumm (0.0-0.7); Absolute Lymphocyte Count 0.83 k/cumm (1.2-3.4); Absolute Monocyte Count 0.51 k/cumm (0.11-0.7); Absolute Neutrophil Count 6.41 k/cumm (1.2-6.7); Basophils % 0.3; Eosinophils % 0.4; HCT 44.4 % (40.0-50.0); HGB 14.9 g/dL (13.5-17.5); Immature Grans % 0.3; Lymphocytes % 10.6; Mean Corp. HGB Concentration 33.6 g/dL (32.0-36.0); Mean Corpuscular Hemoglobin 33.2 pg (27.0-33.0); Mean Corpuscular Volume 98.9 fL (80-95); Mean Platelet Volume 10.3 fL (8.0-11.0); Monocytes % 6.5; Neutrophils % 81.9; Platelet Count 171 x1000/uL (130-400); RBC 4.49 m/cumm (4.50-6.00); RBC Distribution Width 15.7 % (11.8-14.1); White Blood Cell Count 7.82 k/cumm (4.4-10.8)
[2018-07-10 15:27] LABS: ALT 26 U/L (12-78); AST 22 U/L (15-37); Albumin 2.4 g/dL (3.4-5.0); Alkaline Phosphatase 274 U/L (46-116); Anion Gap 6.9 mmol/L (3-11); BUN 60 mg/dL (7-18); Bilirubin, Total 1.6 mg/dL (0.2-1.0); CO2 34.1 mmol/L (21.0-32.0); CREATININE 1.79 mg/dL (0.70-1.30); Calcium 8.3 mg/dL (8.5-10.1); Chloride 94 mmol/L (98-107); Estimated GFR 37.84 (mL/min/1.73m2); Glucose 137 mg/dL (70-100); Magnesium 1.8 mg/dL (1.8-2.4); Sodium 135 mmol/L (136-145); Total Protein 7.6 g/dL (6.4-8.2)
[2018-07-10 15:33] LABS: INR 1.3 (1.0-3.5); PTT Activated 26.1 sec (21.0-31.4); Prothrombin Time 12.6 sec (9.3-11.0)
[2018-07-10 15:37] LABS: Ammonia 36 umol/L (11-32)
[2018-07-10 15:41] LABS: Digoxin 0.77 ng/mL (0.90-2.00)
[2018-07-10 15:44] LABS: Troponin I 0.02 ng/mL (0.00-0.06)
--- NOTE | 2018-07-10 16:17 | DI.VRAD_ITS ---
EXAM: XR Chest, 2 Views EXAM DATE/TIME: 07/10/2018 3:53 PM CLINICAL HISTORY: 68 years old, male; Signs and symptoms; Cough TECHNIQUE: XR of the chest, 2 views. COMPARISON: CR XR CHEST 2V PA LATERAL 05/25/2018 4:30 PM FINDINGS: Lungs: There is new opacification along the lateral aspect of the left hemidiaphragm and left lower heart border which could represent atelectasis or infection. The left aspect of the heart is poorly penetrated on the frontal radiograph. Overlying atelectasis/infection is not excluded. Pleural space: No pneumothorax. Heart/Mediastinum: Cardiomegaly is unchanged. Asymmetric prominence to the left hilum is unchanged. Prominence of the mediastinum is unchanged. Bones/joints: Skeletal degenerative changes. IMPRESSION: 1. There is new opacification along the lateral aspect of the left hemidiaphragm and left lower heart border which could represent atelectasis or infection. The left aspect of the heart is poorly penetrated on the frontal radiograph. Overlying atelectasis/infection is not excluded. 2. Additional unchanged findings as above. If symptoms remain concerning, cross-sectional imaging could be obtained. Dictated and Authenticated by: Katahrine Quiles MD. Ordering:FEI De La Torre MD
[2018-07-10] MEDS: LEVOFLOXACIN 500 MG, LEVOFLOXACIN 250 MG 750 MG PO (16:27)
[2018-07-10] MEDS: Potassium Chloride 20 MEQ TABCR 40 MEQ PO (16:27)
== END 2018-07-10 16:44 | disposition home or self-care (01) ==
PROVIDERS: Emergency Provider Emergency Medicine; PCP Family Medicine
DX: R53.1 Weakness (principal); E87.6 Hypokalemia
CPT/HCPCS: 36415; 80053; 87449; 93005; 96360; 99285; 71046; 80162; 82140; 83735; 84484; 85025; 85610; 85730; 93010

== ENCOUNTER 2018-07-31 02:05 | Outpatient (CLI) | payer OTHER, SELFPAY ==
[2018-07-31 12:13] LABS: ALT 20 U/L (12-78); AST 22 U/L (15-37); Albumin 2.7 g/dL (3.4-5.0); Alkaline Phosphatase 280 U/L (46-116); Anion Gap 6.3 mmol/L (3-11); BUN 57 mg/dL (7-18); Bilirubin, Total 1.3 mg/dL (0.2-1.0); CO2 37.7 mmol/L (21.0-32.0); CREATININE 1.55 mg/dL (0.70-1.30); Calcium 8.6 mg/dL (8.5-10.1); Chloride 94 mmol/L (98-107); Estimated GFR 44.68 (mL/min/1.73m2); Glucose 104 mg/dL (70-100); Potassium 3.3 mmol/L (3.5-5.1); Sodium 138 mmol/L (136-145); Total Protein 7.7 g/dL (6.4-8.2)
[2018-07-31 12:47] LABS: ALT 20 U/L (12-78); AST 24 U/L (15-37); Albumin 2.6 g/dL (3.4-5.0); Alkaline Phosphatase 278 U/L (46-116); Bilirubin, Direct 0.47 mg/dL (0.00-0.20); Bilirubin, Total 1.3 mg/dL (0.2-1.0); NT-proBNP 7057 pg/mL; Total Protein 7.7 g/dL (6.4-8.2)
== END 2018-07-31 02:25 ==
PROVIDERS: Internal Medicine Cardiovascular Disease
DX: R06.02 Shortness of breath (principal); I10 Essential (primary) hypertension; I25.10 Atherosclerotic heart disease of native coronary artery without angina pectoris; E78.5 Hyperlipidemia, unspecified; I05.9 Rheumatic mitral valve disease, unspecified; E03.9 Hypothyroidism, unspecified; I42.9 Cardiomyopathy, unspecified; E87.6 Hypokalemia; J96.11 Chronic respiratory failure with hypoxia
CPT/HCPCS: 36415; 80048; 80053; 80076; 83880

== ENCOUNTER → 2018-08-20 12:16 | Outpatient (BNVA) | payer OTHER, SELFPAY | PROVIDERS: Visit Provider Physical Therapy Assistant | DX: R69 Illness, unspecified (principal) ==

== ENCOUNTER 2018-08-20 12:48 | Emergency (ER) | payer OTHER, SELFPAY ==
[2018-08-20 12:58] VITALS: PULSE 84; RESP 20; TEMP 36.4; O2SAT 93
[2018-08-20 13:09] VITALS: BP 91/39
--- NOTE | 2018-08-20 13:14 | ED.GENADUL_ITS ---
Discharge Plan Disposition Patient Disposition: HOME Discharge Details Chief Complaint: GenMedical Clinical Impression: Abscess of rectum, Creatinine elevation Primary Care Provider: Destinee Lewis ED Provider: Claudine Rhodes Home Meds and New Rx's Prescriptions: New amoxicillin-pot clavulanate [Augmentin] 875-125 mg tablet 1 tab PO BID Qty: 20 RF: 0 Continued tamsulosin 0.4 mg capsule 0.8 mg PO DAILY Qty: 60 RF: 5 magnesium oxide 400 MG tablet 400 mg PO BID Qty: 180 RF: 4 mupirocin calcium [Bactroban] 30 GM cream 1 applic Topical BID PRNQty: 30 RF: 2 triamcinolone acetonide 15 GM cream 1 lorna Topical BID Qty: 1 RF: 2 Spiriva with HandiHaler 18 MCG capsule, w/inhalation device 18 mcg Inhalation DAILY PRNQty: 3 RF: 3 allopurinol 300 MG tablet 300 mg PO DAILY Qty: 90 RF: 3 torsemide 20 MG tablet 60 mg PO DAILY Qty: 180 RF: 6 metolazone 5 MG tablet 5 mg PO as directed Qty: 30 RF: 3 Metoprolol Succinate 50 MG TAB.ER.24H 50 mg PO DAILY Qty: 90 RF: 3 lisinopril 2.5 mg tablet 2.5 mg PO DAILY Qty: 90 RF: 3 simvastatin 40 mg tablet 40 mg PO DAILY Qty: 90 RF: 3 lorazepam 0.5 mg tablet 0.5 mg PO HS PRN Qty: 30 RF: 0 lactulose 20 gram/30 mL solution 20 g PO TID Qty: 1800 RF: 6 Xifaxan 550 mg tablet 550 mg PO BID Qty: 60 RF: 5 digoxin 125 mcg tablet 0.125 mg PO DAILY Qty: 90 RF: 3 No Action potassium chloride 10 mEq tablet extended release 10 meq PO BID Qty: 90 RF: 3 Discharge Instructions Instructions: Dehydration (ED), Rectal Abscess (ED) Additional Instructions: You are dehydrated and this is affecting your kidney function. Please drink plenty of fluid. Drink small amounts often to stay hydrated. All fluid lost as diarrhea needs to be replaced. You should have your kidney function level rechecked by your doctor later this week. Take the antibiotic as prescribed. Follow-up with your doctor. Call today or tomorrow to arrange timely follow-up. Return to the ER for worsening or new concerning symptoms. Referrals: Destinee Lewis NP [Primary Care Provider] - Marianne Hameed MD [ [facility] STAFF PHYSICIAN] - Discharge Data Discharge Date/Time-TO BE ENTERED AT DEPARTURE: 08/20/18 17:10 Medical Decision Making Demar Zimmer is a 68 y/o man with multiple medical problems presenting to the emergency department after being sent from outpatient surgery office for perirectal abscess. On exam patient is chronically ill but acutely nontoxic appearing. There is a perirectal abscess that is draining a moderate amount of purulent fluid. No surrounding cellulitis. Rectal exam is normal, however there is some induration surrounding the abscess. Plan for CT as was requested, also screening labs. Patient declines pain medication at this time. Patient seen in the emergency department by Dr. Ribera of surgery, who requests CT be canceled, no indication for further imaging at this time, requests Rx augmentin. I&D performed by Dr. Ribera, wound cultures sent. Had a lengthy discussion with the patient regarding home care, return to emergency department precautions, and importance of outpatient follow-up with surgery and with his PCP. He verbalized understanding of the plan and is amenable. He requests we send an ammonia level for his PCP to follow-up on as outpatient. Will add on test. Medical Records Medical records reviewed: Yes I reviewed the patient's medical records. Lab Data Lab results reviewed: Yes I reviewed the patient's lab results. 08/20/18 14:38 Blood Blood Culture - Final NO GROWTH 120 HOURS 08/20/18 14:15 Blood Blood Culture - Final NO GROWTH 120 HOURS 08/20/18 14:14 Buttock - Right Abscess Culture - Final Normal Marlen 08/20/18 14:14 Buttock - Right Gram Stain - Final Laboratory Tests Range/Units 08/20/18 08/20/18 08/20/18 14:15 14:15 14:15 WBC (4.4-10.8) k/cumm 7.99 RBC (4.50-6.00) m/cumm 3.94 L Hgb (13.5-17.5) g/dL 12.9 L Hct (40.0-50.0) % 39.4 L MCV (80-95) fL 100.0 H MCH (27.0-33.0) pg 32.7 MCHC (32.0-36.0) g/dL 32.7 RDW (11.8-14.1) % 16.2 H Plt Count (130-400) x1000/uL 234 MPV (8.0-11.0) fL 10.7 Immature Gran % 0.1 Neutrophils % 78.6 Lymphocytes % 13.9 Monocytes % 5.5 Eosinophils % 1.4 Basophils % 0.5 Absolute Neutrophils (1.2-6.7) k/cumm 6.28 Absolute Lymphocytes (1.2-3.4) k/cumm 1.11 L Absolute Monocytes (0.11-0.7) k/cumm 0.44 Absolute Eosinophils (0.0-0.7) k/cumm 0.11 Absolute Basophils (0.0-0.2) k/cumm 0.04 Sodium (136-145) mmol/L 134 L Potassium (3.5-5.1) mmol/L 3.6 Chloride (98-107) mmol/L 93 L Carbon Dioxide (21.0-32.0) mmol/L 34.5 H Anion Gap (3-11) mmol/L 6.5 BUN (7-18) mg/dL 92 H* Creatinine (0.70-1.30) mg/dL 2.29 H Estimated GFR/1.73 m2 (mL/min/1.73m2) 28.48 Glucose (70-100) mg/dL 109 H Lactate (0.6-1.4) mmol/l 1.8 H Calcium (8.5-10.1) mg/dL 9.0 Total Bilirubin (0.2-1.0) mg/dL 1.1 H AST (15-37) U/L 27 ALT (12-78) U/L 17 Alkaline Phosphatase (46-116) U/L 203 H Ammonia (11-32) umol/L Total Protein (6.4-8.2) g/dL 8.3 H Albumin (3.4-5.0) g/dL 2.5 L Range/Units 08/20/18 16:32 WBC (4.4-10.8) k/cumm RBC (4.50-6.00) m/cumm Hgb (13.5-17.5) g/dL Hct (40.0-50.0) % MCV (80-95) fL MCH (27.0-33.0) pg MCHC (32.0-36.0) g/dL RDW (11.8-14.1) % Plt Count (130-400) x1000/uL MPV (8.0-11.0) fL Immature Gran % Neutrophils % Lymphocytes % Monocytes % Eosinophils % Basophils % Absolute Neutrophils (1.2-6.7) k/cumm Absolute Lymphocytes (1.2-3.4) k/cumm Absolute Monocytes (0.11-0.7) k/cumm Absolute Eosinophils (0.0-0.7) k/cumm Absolute Basophils (0.0-0.2) k/cumm Sodium (136-145) mmol/L Potassium (3.5-5.1) mmol/L Chloride (98-107) mmol/L Carbon Dioxide (21.0-32.0) mmol/L Anion Gap (3-11) mmol/L BUN (7-18) mg/dL Creatinine (0.70-1.30) mg/dL Estimated GFR/1.73 m2 (mL/min/1.73m2) Glucose (70-100) mg/dL Lactate (0.6-1.4) mmol/l Calcium (8.5-10.1) mg/dL Total Bilirubin (0.2-1.0) mg/dL AST (15-37) U/L ALT (12-78) U/L Alkaline Phosphatase (46-116) U/L Ammonia (11-32) umol/L 21 Total Protein (6.4-8.2) g/dL Albumin (3.4-5.0) g/dL HPI General Mode of arrival: ambulatory . Date/Time Provider Initiated Documentation: 08/20/18 13:12 . Limitations to Documentation: no limitations . Information obtained by: patient, family, RN/MD, RN notes reviewed and old records reviewed . HPI Narrative: Demar Malik is a 68 y/o man with history of CHF, hepatic encephalopathy, pulmonary hypertension, chronic kidney disease, hyperlipidemia, A. fib tenting to the emergency department with rectal abscess. Patient was seen at outpatient surgery clinic by surgery PA, who evaluated patient and sent him to the emergency department for CT scan for further evaluation of his rectal abscess. Patient reports that he has been having rectal pain and drainage for approximately 1 week. He reports the drainage has increased recently. He denies fevers, other rash, any other pain, tenesmus, nausea/vomiting. He does report diarrhea secondary to lactulose use. Has been otherwise well in his usual state of health. Eating and drinking as usual. Related Data Home Medications Medication Instructions Recorded Confirmed magnesium oxide 400 mg PO BID #180 tab-cap 04/08/15 08/24/18 mupirocin calcium [Bactroban] 1 applic TOPICAL BID PRN #30 gm 08/19/15 08/24/18 triamcinolone acetonide 1 lorna TOPICAL BID #1 tube 04/17/17 08/24/18 Spiriva with HandiHaler 18 mcg INHALATION DAILY PRN #3 10/19/17 08/24/18 tab-cap allopurinol 300 mg PO DAILY #90 tab-cap 10/27/17 08/24/18 metolazone 5 mg PO as directed #30 tab-cap 12/13/17 08/24/18 torsemide 60 mg PO DAILY #180 tab-cap 12/13/17 08/24/18 lisinopril 2.5 mg tablet 2.5 mg PO DAILY #90 tab 04/04/18 08/24/18 simvastatin 40 mg PO DAILY #90 tab-cap 04/17/18 08/24/18 lorazepam 0.5 mg tablet 0.5 mg PO HS PRN #30 tab 06/13/18 08/24/18 lactulose 20 gram/30 mL oral 20 g PO TID #1800 g 06/19/18 08/24/18 solution rifaximin 550 mg tablet 550 mg PO BID #60 tab 06/19/18 08/24/18 tamsulosin 0.4 mg capsule 0.8 mg PO DAILY #60 cap 06/20/18 08/24/18 digoxin 125 mcg tablet 0.125 mg PO DAILY #90 tab 06/29/18 08/24/18 amoxicillin-pot clavulanate 1 tab PO BID #20 tab 08/20/18 08/24/18 [Augmentin] potassium chloride ER 10 mEq 10 meq PO BID #90 tab 08/20/18 08/24/18 tablet,extended release Previous Rx's Medication Instructions Recorded triamcinolone acetonide 1 lorna TOPICAL BID #1 tube 04/17/17 allopurinol 300 mg PO DAILY #90 tab-cap 10/27/17 metolazone 5 mg PO as directed #30 tab-cap 12/13/17 torsemide 60 mg PO DAILY #180 tab-cap 12/13/17 lisinopril 2.5 mg tablet 2.5 mg PO DAILY #90 tab 04/04/18 simvastatin 40 mg PO DAILY #90 tab-cap 04/17/18 lorazepam 0.5 mg tablet 0.5 mg PO HS PRN #30 tab 06/13/18 lactulose 20 gram/30 mL oral 20 g PO TID #1800 g 06/19/18 solution rifaximin 550 mg tablet 550 mg PO BID #60 tab 06/19/18 tamsulosin 0.4 mg capsule 0.8 mg PO DAILY #60 cap 06/20/18 digoxin 125 mcg tablet 0.125 mg PO DAILY #90 tab 06/29/18 amoxicillin-pot clavulanate 1 tab PO BID #20 tab 08/20/18 [Augmentin] potassium chloride ER 10 mEq 10 meq PO BID #90 tab 08/20/18 tablet,extended release Allergies Allergy/AdvReac Type Severity Reaction Status Date / Time heparin AdvReac Severe decreased Verified 08/24/18 09:14 renal function ? Iodine AdvReac Intermediate Rash Uncoded 08/24/18 09:14 General Stated Complaint: GenMedical SUSIE: 3 Review of Systems Review of Systems Constitutional: denies fevers Eyes: denies eye pain ENT: denies facial pain, dental pain, sore throat Cardiovascular: denies chest pain, edema Respiratory: reports chronic unchanged SOB and cough GI: denies abdominal pain, vomiting, tenesmus, constipation, reports diarrhea : denies flank pain, dysuria MSK: denies back pain, neck pain, arthralgias, myalgias Skin: denies rash Neuro: denies headaches, numbness, weakness [facility] Medical History DNI (do not intubate) (Acute) DNR (do not resuscitate) (Acute) Chronic respiratory failure with hypoxia (Chronic) Cellulitis of both lower extremities (Chronic) Chronic systolic CHF (congestive heart failure) (Chronic) Cardiomyopathy (Chronic) Hepatic encephalopathy (Acute) Urinary retention (Acute) Cirrhosis (Chronic) Non-sustained ventricular tachycardia (Chronic) Altered mental status (Acute) Advanced directives, counseling/discussion (Acute) DVT prophylaxis (Acute) Pulmonary hypertension (Chronic) CKD (chronic kidney disease) (Chronic) BUCKY (obstructive sleep apnea) (Chronic) Congestive heart failure (Chronic) Hand arthritis (Chronic) MGUS (monoclonal gammopathy of unknown 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) Unspecified jaundice (Acute 10/24/17) TSH elevation (Resolved 03/03/14) Sleep apnea (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) Left wrist pain (Resolved 02/22/16) Hyperlipidemia (Chronic 03/20/13) History of alcoholism (Chronic) Family hx of alcoholism (Chronic) History of tobacco use (Chronic) Gout (Chronic 03/03/14) Facial dermatitis (Chronic 04/17/17) Chronic venous stasis dermatitis of both lower extremities (Chronic 10/24/17) Atrial fibrillation (Chronic 03/03/14) Anticoagulated on warfarin (Chronic) Disorder of lung (Resolved 11/14/12) Surgical History Extraction of cataract (02/18/16) 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) Social History household members: spouse housing: house lives independently: No (pt doesn't drive, meals done ahead if will be alone) current occupational status: retired pets and animals: Yes (cat is currently missing) pets and animals: cat(s) frequency: daily Smoking/Tobacco Use Status: Former Tobacco Use how long ago did patient quit smoking: QUIT 04/06/2005 alcohol intake: never details: Unknown substance use type: does not use special uriah needs: No seatbelt use: always drive intox or ride w/ intox home delivery driver: No working smoke detector in home: Yes fire extinguisher in home: Yes carbon monox detector in home: Yes firearms in home: No Exam Narrative Exam Narrative: Constitutional: Chronically ill but acutely [id number], pleasant, conversing normally HENT: head atraumatic, normocephalic normal inspection, mucous membranes moist Eyes: conjunctiva normal, sclera normal, pupils 3mm b/l Neck: no stridor, normal ROM, trachea midline Chest: normal inspection Resp: normal work of breathing, LCTAB, on oxygen by nasal cannula as is his baseline Cardio: normal rate, normal rhythm, no murmur appreciated GI: abdomen soft, non-tender, non-distended. Perirectal abscess, draining moderate amount perirectal fluid, some surrounding induration without erythema or edema, rectal exam normal Back: normal inspection, no rash Skin: warm, dry, normal color, no rash Neuro: alert, not altered, grossly non-focal, normal tone Psych: normal mood, normal affect, normal behavior Course Vital Signs Temperature 36.4 C L 08/20/18 12:58 Pulse 84 08/20/18 12:58 Respiratory Rate 20 08/20/18 12:58 Pulse Oximetry 93 L 08/20/18 12:58 Temperature 36.4 C L 08/20/18 12:58 Temperature Source Skin 08/20/18 12:58 Pulse 84 08/20/18 12:58 Respiratory Rate 20 08/20/18 12:58 Blood Pressure 91/39 L 08/20/18 13:09 Pulse Oximetry 93 L 08/20/18 12:58 Oxygen Delivery Method Nasal Cannula 08/20/18 12:58 Oxygen Flow Rate 2 08/20/18 12:58 Pain Level 5 08/20/18 12:58
[2018-08-20 14:29] VITALS: RESP 20
[2018-08-20 14:33] LABS: Lactate-non-spesis 1.8 mmol/l (0.6-1.4)
[2018-08-20 14:37] LABS: Abs Immature Grans 0.01 k/cumm (0.0-0.09); Absolute Basophil Count 0.04 k/cumm (0.0-0.2); Absolute Eosinophil Count 0.11 k/cumm (0.0-0.7); Absolute Lymphocyte Count 1.11 k/cumm (1.2-3.4); Absolute Monocyte Count 0.44 k/cumm (0.11-0.7); Absolute Neutrophil Count 6.28 k/cumm (1.2-6.7); Basophils % 0.5; Eosinophils % 1.4; HCT 39.4 % (40.0-50.0); HGB 12.9 g/dL (13.5-17.5); Immature Grans % 0.1; Lymphocytes % 13.9; Mean Corp. HGB Concentration 32.7 g/dL (32.0-36.0); Mean Corpuscular Hemoglobin 32.7 pg (27.0-33.0); Mean Platelet Volume 10.7 fL (8.0-11.0); Monocytes % 5.5; Neutrophils % 78.6; Platelet Count 234 x1000/uL (130-400); RBC 3.94 m/cumm (4.50-6.00); RBC Distribution Width 16.2 % (11.8-14.1); White Blood Cell Count 7.99 k/cumm (4.4-10.8)
[2018-08-20 14:49] LABS: ALT 17 U/L (12-78); AST 27 U/L (15-37); Albumin 2.5 g/dL (3.4-5.0); Alkaline Phosphatase 203 U/L (46-116); Anion Gap 6.5 mmol/L (3-11); Bilirubin, Total 1.1 mg/dL (0.2-1.0); CO2 34.5 mmol/L (21.0-32.0); CREATININE 2.29 mg/dL (0.70-1.30); Chloride 93 mmol/L (98-107); Estimated GFR 28.48 (mL/min/1.73m2); Glucose 109 mg/dL (70-100); Potassium 3.6 mmol/L (3.5-5.1); Sodium 134 mmol/L (136-145); Total Protein 8.3 g/dL (6.4-8.2)
[2018-08-20 14:52] LABS: BUN 92 mg/dL (7-18)
--- NOTE | 2018-08-20 15:43 | W.SURGCON ---
Date of service: 08/20/18 Time of Service: 15:43 Assessment and Plan (1) Perirectal abscess: Current visit: Yes Status: Acute A\\ stacia-rectal abscess that whas already drained P\\ The cavity was probed and opened slightly more. The wound was irrigated with saline D/C home on augmentin and sitz baths tid November shower Follow up on Monday with my PA History of Present Illness Chief Complaint: Stacia-rectal abscess Narrative: Mr. Malik is a 68 year old male who has had some rectal pain and swelling for about 1 week. he was seen by his PCP and sent to our office. Once in our office he informed the staff that he was almost out of O2 and did we have any. Unfortunately we do not have O2 at our office. He was examined by our PA and she didn't feel comfortable doing an incision and drainage in the office. He was asked to go to the ED. I saw him in the ER. He is afabrile. WBC count is normal. He states his pain is better and his tells me that the area is draining. Consults Consult date: 08/20/18 Requesting physician: Claudine Rhodes Review of Systems Constitutional Denies fever(s) and Denies night sweats Cardiovascular Denies chest pain, Denies chest pain at rest, Denies dyspnea and Denies dyspnea on exertion Respiratory Denies dyspnea and Denies dyspnea on exertion Gastrointestinal Reports as per [facility] Medical History DNI (do not intubate) (Acute) DNR (do not resuscitate) (Acute) Chronic respiratory failure with hypoxia (Chronic) Cellulitis of both lower extremities (Chronic) Chronic systolic CHF (congestive heart failure) (Chronic) Cardiomyopathy (Chronic) Hepatic encephalopathy (Acute) Urinary retention (Acute) Cirrhosis (Chronic) Non-sustained ventricular tachycardia (Chronic) Altered mental status (Acute) Advanced directives, counseling/discussion (Acute) DVT prophylaxis (Acute) Pulmonary hypertension (Chronic) CKD (chronic kidney disease) (Chronic) BUCKY (obstructive sleep apnea) (Chronic) Congestive heart failure (Chronic) Hand arthritis (Chronic) MGUS (monoclonal gammopathy of unknown 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) Unspecified jaundice (Acute 10/24/17) TSH elevation (Resolved 03/03/14) Sleep apnea (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) Left wrist pain (Resolved 02/22/16) Hyperlipidemia (Chronic 03/20/13) History of alcoholism (Chronic) Family hx of alcoholism (Chronic) History of tobacco use (Chronic) Gout (Chronic 03/03/14) Facial dermatitis (Chronic 04/17/17) Chronic venous stasis dermatitis of both lower extremities (Chronic 10/24/17) Atrial fibrillation (Chronic 03/03/14) Anticoagulated on warfarin (Chronic) Disorder of lung (Resolved 11/14/12) Surgical History Extraction of cataract (02/18/16) 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) Social History household members: spouse housing: house lives independently: No (pt doesn't drive, meals done ahead if will be alone) current occupational status: retired pets and animals: Yes (cat is currently missing) pets and animals: cat(s) frequency: daily Smoking/Tobacco Use Status: Former Tobacco Use how long ago did patient quit smoking: QUIT 04/06/2005 alcohol intake: never details: Unknown substance use type: does not use special uriah needs: No seatbelt use: always drive intox or ride w/ intox full service vending driver: No working smoke detector in home: Yes fire extinguisher in home: Yes carbon monox detector in home: Yes firearms in home: No Exam GI Other: Just to the left of his anal verge there is a 0.6 cm opening with some serosaguinous drainage. Induration is minimal. Results Last Vital Signs Temp 97.5 F L 08/20/18 12:58 Pulse 84 08/20/18 12:58 Resp 20 08/20/18 14:29 BP 91/39 L 08/20/18 13:09 Pulse Ox 93 L 08/20/18 12:58 Labs : 08/20/18 14:15 08/20/18 14:15 Laboratory Results - last 24 hr 08/20/18 08/20/18 08/20/18 14:15 14:15 14:15 WBC 7.99 RBC 3.94 L Hgb 12.9 L Hct 39.4 L MCV 100.0 H MCH 32.7 MCHC 32.7 RDW 16.2 H Plt Count 234 MPV 10.7 Immature Gran % 0.1 Neutrophils % 78.6 Lymphocytes % 13.9 Monocytes % 5.5 Eosinophils % 1.4 Basophils % 0.5 Absolute Neutrophils 6.28 Absolute Lymphocytes 1.11 L Absolute Monocytes 0.44 Absolute Eosinophils 0.11 Absolute Basophils 0.04 Sodium 134 L Potassium 3.6 Chloride 93 L Carbon Dioxide 34.5 H Anion Gap 6.5 BUN 92 H* Creatinine 2.29 H Estimated GFR/1.73 m2 28.48 Glucose 109 H Lactate 1.8 H Calcium 9.0 Total Bilirubin 1.1 H AST 27 ALT 17 Alkaline Phosphatase 203 H Total Protein 8.3 H Albumin 2.5 L Procedures Abscess I/D Site: stacia-rectal Side (if applicable): left Sedation/analgesia: none Anesthetic used: with epi Technique: other (The opening was spread with a hemostat. No purulent discharge was noted) Amount of fluid (mL): 0 Irrigation: Yes (normal saline x 50 cc used to irrigate) Packing used?: none
[2018-08-20 16:21] VITALS: BP 89/51; PULSE 102; RESP 22; TEMP 36.9; O2SAT 97
[2018-08-20] MEDS: Amoxicillin 875/Clav. 125 TAB PO (16:44)
[2018-08-20 16:46] VITALS: BP 89/51; PULSE 102; RESP 22; TEMP 36.9; O2SAT 97
[2018-08-20 16:48] LABS: Ammonia 21 umol/L (11-32)
== END 2018-08-20 17:10 | disposition home or self-care (01) ==
PROVIDERS: Student in an Organized Health Care Education/Training Program; Emergency Provider Student in an Organized Health Care Education/Training Program
DX: K61.1 Rectal abscess; R79.89 Other specified abnormal findings of blood chemistry; E86.0 Dehydration; J44.9 Chronic obstructive pulmonary disease, unspecified; I12.9 Hypertensive chronic kidney disease with stage 1 through stage 4 chronic kidney disease, or unspecified chronic kidney disease; N18.9 Chronic kidney disease, unspecified
CPT/HCPCS: 10060; 36415; 80053; 87040; 99252; 99283; 82140; 83605; 85025; 87070; 87205

== ENCOUNTER → 2018-08-24 09:06 | Outpatient (BNVA) | payer OTHER, SELFPAY | PROVIDERS: Visit Provider Physical Therapy Assistant | DX: L02.91 Cutaneous abscess, unspecified (principal); Z48.817 Encounter for surgical aftercare following surgery on the skin and subcutaneous tissue | CPT/HCPCS: 99212 ==

== ENCOUNTER 2018-10-30 01:49 | Outpatient (CLI) | payer OTHER, SELFPAY ==
[2018-10-30 09:19] LABS: Ammonia 18 umol/L (11-32)
[2018-10-30 10:14] LABS: ALT 16 U/L (12-78); AST 24 U/L (15-37); Albumin 3.1 g/dL (3.4-5.0); Alkaline Phosphatase 268 U/L (46-116); Anion Gap 6.6 mmol/L (3-11); BUN 48 mg/dL (7-18); Bilirubin, Direct 0.67 mg/dL (0.00-0.20); Bilirubin, Total 1.5 mg/dL (0.2-1.0); CO2 36.4 mmol/L (21.0-32.0); CREATININE 1.69 mg/dL (0.70-1.30); Calcium 8.8 mg/dL (8.5-10.1); Chloride 94 mmol/L (98-107); Estimated GFR 40.44 (mL/min/1.73m2); Glucose 93 mg/dL (70-100); NT-proBNP 9510 pg/mL; Potassium 3.4 mmol/L (3.5-5.1); Sodium 137 mmol/L (136-145); Total Protein 8.1 g/dL (6.4-8.2)
== END 2018-10-30 02:09 ==
LOC: LOS 01:49 → LBO 08:40
DX: I50.9 Heart failure, unspecified (principal); N18.9 Chronic kidney disease, unspecified; K74.60 Unspecified cirrhosis of liver; J96.11 Chronic respiratory failure with hypoxia; K72.90 Hepatic failure, unspecified without coma; E03.9 Hypothyroidism, unspecified
CPT/HCPCS: 36415; 80053; 82140; 82248; 83880

== ENCOUNTER 2018-11-05 15:22 | Emergency (ER) | payer OTHER, SELFPAY ==
[2018-11-05] VITALS (34 sets, daily range): BP systolic 79–98; BP diastolic 42–62; PULSE 68–103; RESP 16–32; TEMP 36.6; O2SAT 92–96
--- NOTE | 2018-11-05 15:44 | W.ED.GENAD ---
Discharge Plan Disposition Patient Disposition: [facility] Discharge Details Chief Complaint: SOB Clinical Impression: Cirrhosis, Congestive heart failure, Ascites, Acute hypotension, Acute renal insufficiency, Acute hyponatremia Primary Care Provider: Destinee Lewis ED Provider: John Ring Home Meds and New Rx's Prescriptions: No Action Spiriva with HandiHaler 18 mcg capsule, w/inhalation device 18 mcg Inhalation DAILY PRN (Reason: COPD) Qty: 3 RF: 2 mupirocin calcium [Bactroban] 30 GM cream 1 applic Topical BID PRNQty: 30 RF: 2 Hold Instructions: None allopurinol 300 mg tablet 300 mg PO DAILY Qty: 90 RF: 3 digoxin 125 mcg tablet 0.125 mg PO DAILY Qty: 90 RF: 3 lactulose 20 gram/30 mL solution 20 g PO TID Qty: 1800 RF: 6 lisinopril 2.5 mg tablet 2.5 mg PO DAILY Qty: 90 RF: 3 lorazepam 0.5 mg tablet 0.5 mg PO HS PRN Qty: 30 RF: 0 magnesium oxide 400 mg (241.3 mg magnesium) tablet 400 mg PO BID Qty: 180 RF: 3 metolazone 5 mg tablet 5 mg PO as directed Qty: 30 RF: 3 metoprolol succinate 50 mg tablet extended release 24 hr 50 mg PO DAILY Qty: 90 RF: 3 potassium chloride 10 mEq tablet extended release 10 meq PO BID Qty: 90 RF: 3 Xifaxan 550 mg tablet 550 mg PO BID Qty: 60 RF: 5 simvastatin 40 mg tablet 40 mg PO DAILY Qty: 90 RF: 4 tamsulosin 0.4 mg capsule 0.8 mg PO DAILY Qty: 180 RF: 4 torsemide 20 mg tablet 60 mg PO DAILY Qty: 180 RF: 6 triamcinolone acetonide 0.5 % cream 1 applic Topical BID Qty: 1 RF: 2 Medical Decision Making This is a nontoxic-appearing 68-year-old male with significant comorbidities including CHF, cirrhosis, A. fib not on OAC's. Chief complaint today is dyspnea with weight gain and abdominal fullness. Vitals reveal a heart rate of 84 in A. fib. EKG unchanged from prior with A. fib and incomplete right bundle branch block. Negative for STEMI. Noted weight gain from March of 20 kilograms. [id number] ultrasound reveals increased B lines bilaterally. Small right lower pleural effusion noted. Roughly 4 cm of fluid noted in the right lower gutter. Abdomen soft nontender. No fever. IV and labs ordered chest x-ray pending Course of stay in the ED patient's BP continues to trend down despite gentle IV fluid hydration. High risk for fluid overload secondary to above coronary comorbidities. Map trended down to 39 at which point nor epi 8 mcg/min was initiated. Labs reveal a worsening chronic kidney disease with a BUN of 75 and creatinine of 2.68. BNP elevated at 9000. Troponin within normal limits. Slight subtherapeutic digoxin level. Chest x-ray conferring fluid overload with mild right lower pleural effusion. Call placed to [facility] critical care for transfer. Case discussed with Dr. Chacon at [facility] critical care. He will accept patient in transfer. Slight titration up on the nor epi to 12 mics per minute. Systolics above 90 at this time. HPI General Date/Time Provider Initiated Documentation: 11/05/18 15:25. HPI Narrative: This is a 68-year-old male presenting today to the emergency department with a chief complaint of shortness of breath and weight gain. Patient has a significant past medical history of DNR/DNI, chronic systolic CHF, hepatic encephalopathy, cirrhosis pulmonary hypertension, chronic kidney disease, A. fib not anticoagulated. Patient feels distention in his abdomen without pain. No fever no chills. He reports an unknown weight gain. He reports dyspnea on exertion and orthopnea. Home oxygen level requirements stable at 2 L via nasal cannula. No chest pain. Patient sent in by PCPs office for possible CHF/cirrhosis overload. Related Data Home Medications Medication Instructions Recorded Confirmed mupirocin calcium [Bactroban] 1 applic TOPICAL BID PRN #30 gm 08/19/15 11/05/18 allopurinol 300 mg tablet 300 mg PO DAILY #90 tab-cap 10/31/18 11/05/18 digoxin 125 mcg tablet 0.125 mg PO DAILY #90 tab 10/31/18 11/05/18 lactulose 20 gram/30 mL oral 20 g PO TID #1800 g 10/31/18 11/05/18 solution lisinopril 2.5 mg tablet 2.5 mg PO DAILY #90 tab 10/31/18 11/05/18 lorazepam 0.5 mg tablet 0.5 mg PO HS PRN #30 tab 10/31/18 11/05/18 magnesium oxide 400 mg (241.3 mg 400 mg PO BID #180 tab-cap 10/31/18 11/05/18 magnesium) tablet metolazone 5 mg tablet 5 mg PO as directed #30 tab-cap 10/31/18 11/05/18 metoprolol succinate ER 50 mg 50 mg PO DAILY #90 tab 10/31/18 11/05/18 tablet,extended release 24 hr potassium chloride ER 10 mEq 10 meq PO BID #90 tab 10/31/18 11/05/18 tablet,extended release rifaximin 550 mg tablet 550 mg PO BID #60 tab 10/31/18 11/05/18 simvastatin 40 mg tablet 40 mg PO DAILY #90 tab-cap 10/31/18 11/05/18 tamsulosin 0.4 mg capsule 0.8 mg PO DAILY #180 cap 10/31/18 11/05/18 torsemide 20 mg tablet 60 mg PO DAILY #180 tab-cap 10/31/18 11/05/18 triamcinolone acetonide 0.5 % 1 applic TOPICAL BID #1 tube 10/31/18 11/05/18 topical cream tiotropium bromide 18 mcg capsule 18 mcg INHALATION DAILY PRN #3 11/05/18 11/05/18 with inhalation device tab-cap Previous Rx's Medication Instructions Recorded allopurinol 300 mg tablet 300 mg PO DAILY #90 tab-cap 10/31/18 digoxin 125 mcg tablet 0.125 mg PO DAILY #90 tab 10/31/18 lactulose 20 gram/30 mL oral 20 g PO TID #1800 g 10/31/18 solution lisinopril 2.5 mg tablet 2.5 mg PO DAILY #90 tab 10/31/18 lorazepam 0.5 mg tablet 0.5 mg PO HS PRN #30 tab 10/31/18 magnesium oxide 400 mg (241.3 mg 400 mg PO BID #180 tab-cap 10/31/18 magnesium) tablet metolazone 5 mg tablet 5 mg PO as directed #30 tab-cap 10/31/18 metoprolol succinate ER 50 mg 50 mg PO DAILY #90 tab 10/31/18 tablet,extended release 24 hr potassium chloride ER 10 mEq 10 meq PO BID #90 tab 10/31/18 tablet,extended release rifaximin 550 mg tablet 550 mg PO BID #60 tab 10/31/18 simvastatin 40 mg tablet 40 mg PO DAILY #90 tab-cap 10/31/18 tamsulosin 0.4 mg capsule 0.8 mg PO DAILY #180 cap 10/31/18 torsemide 20 mg tablet 60 mg PO DAILY #180 tab-cap 10/31/18 triamcinolone acetonide 0.5 % 1 applic TOPICAL BID #1 tube 10/31/18 topical cream tiotropium bromide 18 mcg capsule 18 mcg INHALATION DAILY PRN #3 11/05/18 with inhalation device tab-cap Allergies Allergy/AdvReac Type Severity Reaction Status Date / Time heparin AdvReac Severe decreased Verified 11/05/18 15:46 renal function ? Iodine AdvReac Intermediate Rash Uncoded 11/05/18 15:46 General SUSIE: 3 Review of Systems Constitutional Denies chills, Reports fatigue, Denies fever(s), Denies headache(s), Reports lethargy, Denies night sweats, Reports weakness and Reports weight gain Eyes Denies loss of vision ENT Denies dysphagia and Denies headache(s) Cardiovascular Denies chest pain, Denies chest pain at rest, Denies chest pain with activity, Denies diaphoresis, Denies syncope, Denies rapid heart rate, Reports pedal edema, Reports edema, Reports irregular heart rhythm, Denies claudication, Reports leg edema, Denies lightheadedness, Denies radiating jaw, neck or arm pain, Denies palpitations, Reports dyspnea, Reports dyspnea on exertion, Reports orthopnea, Reports paroxysmal nocturnal dyspnea and Denies slow heart rate Respiratory Reports dyspnea, Reports dyspnea on exertion and Denies wheezing Gastrointestinal Denies abdominal pain, Reports bloating, Denies change in bowel habits, Denies cramping, Denies dysphagia, Denies dyspepsia, Denies loose stools, Denies nausea and Denies vomiting Genitourinary Denies hematuria and Denies difficulty urinating Musculoskeletal Denies back pain, Denies myalgias, Denies atrophy and Denies deformity Neurologic Denies syncope, Denies headache(s), Denies loss of vision and Reports weakness Endocrine Reports fatigue and Denies palpitations Allergic/Immunologic Denies wheezing [facility] Medical History DNI (do not intubate) (Acute) DNR (do not resuscitate) (Acute) Chronic respiratory failure with hypoxia (Chronic) Cellulitis of both lower extremities (Chronic) Chronic systolic CHF (congestive heart failure) (Chronic) Cardiomyopathy (Chronic) Hepatic encephalopathy (Acute) Urinary retention (Acute) Cirrhosis (Chronic) Non-sustained ventricular tachycardia (Chronic) Altered mental status (Acute) Advanced directives, counseling/discussion (Acute) DVT prophylaxis (Acute) Pulmonary hypertension (Chronic) CKD (chronic kidney disease) (Chronic) BUCKY (obstructive sleep apnea) (Chronic) Congestive heart failure (Chronic) Hand arthritis (Chronic) MGUS (monoclonal gammopathy of unknown 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) Unspecified jaundice (Acute 10/24/17) TSH elevation (Resolved 03/03/14) Sleep apnea (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) Left wrist pain (Resolved 02/22/16) Hyperlipidemia (Chronic 03/20/13) History of alcoholism (Chronic) Family hx of alcoholism (Chronic) History of tobacco use (Chronic) Gout (Chronic 03/03/14) Facial dermatitis (Chronic 04/17/17) Chronic venous stasis dermatitis of both lower extremities (Chronic 10/24/17) Atrial fibrillation (Chronic 03/03/14) Anticoagulated on warfarin (Chronic) Disorder of lung (Resolved 11/14/12) Surgical History Extraction of cataract (02/18/16) 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 Grandfather No problems noted. Mother Diabetes Alcohol abuse Father Alcohol abuse Grandmother Diabetes Grandmother No problems noted. 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 Working smoke detector in home: Yes Fire extinguisher in home: Yes Carbon monox detector in home: Yes Firearms in home: No Do you feel safe in your relationship?: Yes Exam Const General: cooperative, comfortable and no acute distress Nutritional Appearance: obese, overweight and edematous Orientation: alert, awake and oriented x3 HENMT Head: normal to inspection Ears: hearing grossly normal bilaterally General nose exam: other Face and sinus: normal facial exam Mouth: oral mucosae normal Eyes General: appearance normal, both eyes and all related structures Sclera: sclerae normal and scleral abnormality Cornea: corneas normal Neck Neck: normal visual inspection Chest Chest: normal inspection of the chest Resp Effort & Inspection: normal respiratory effort Auscultation: crackles bilaterally Cardio Jugular venous pressure: no JVD Rate: regular rate Rhythm: abnormal rhythm irregularly irregular Heart Sounds: S1 normal and S2 normal Bruits: abdominal aortic bruit Pulses: posterior tibial pulses present and dorsalis pedis pulses present GI Inspection: distended Palpation: soft, no hepatosplenomegaly, not firm, no guarding and nontender Percussion: dullness to percussion and fluid wave Auscultation: normal bowel sounds Back/Spine/Pelvis Back: no CVA tenderness Skin General skin exam: no rashes or lesions noted Neuro General: alert, awake and oriented x3 Extrem Right lower extremity: edema Details: pitting and 2+ Left lower extremity: edema Details: pitting and 2+
[2018-11-05] MEDS: Lactated Ringers 250 ML 1000 ML IV (16:00)
--- NOTE | 2018-11-05 16:20 | ED.GENADUL_ITS ---
Discharge Plan Disposition Patient Disposition: [facility] Discharge Details Chief Complaint: SOB Clinical Impression: Cirrhosis, Congestive heart failure, Ascites, Acute hypotension, Acute renal insufficiency, Acute hyponatremia Primary Care Provider: Destinee Lewis ED Provider: John Ring Home Meds and New Rx's Prescriptions: No Action Spiriva with HandiHaler 18 mcg capsule, w/inhalation device 18 mcg Inhalation DAILY PRN (Reason: COPD) Qty: 3 RF: 2 mupirocin calcium [Bactroban] 30 GM cream 1 applic Topical BID PRNQty: 30 RF: 2 Hold Instructions: None allopurinol 300 mg tablet 300 mg PO DAILY Qty: 90 RF: 3 digoxin 125 mcg tablet 0.125 mg PO DAILY Qty: 90 RF: 3 lactulose 20 gram/30 mL solution 20 g PO TID Qty: 1800 RF: 6 lisinopril 2.5 mg tablet 2.5 mg PO DAILY Qty: 90 RF: 3 lorazepam 0.5 mg tablet 0.5 mg PO HS PRN Qty: 30 RF: 0 magnesium oxide 400 mg (241.3 mg magnesium) tablet 400 mg PO BID Qty: 180 RF: 3 metolazone 5 mg tablet 5 mg PO as directed Qty: 30 RF: 3 metoprolol succinate 50 mg tablet extended release 24 hr 50 mg PO DAILY Qty: 90 RF: 3 potassium chloride 10 mEq tablet extended release 10 meq PO BID Qty: 90 RF: 3 Xifaxan 550 mg tablet 550 mg PO BID Qty: 60 RF: 5 simvastatin 40 mg tablet 40 mg PO DAILY Qty: 90 RF: 4 tamsulosin 0.4 mg capsule 0.8 mg PO DAILY Qty: 180 RF: 4 torsemide 20 mg tablet 60 mg PO DAILY Qty: 180 RF: 6 triamcinolone acetonide 0.5 % cream 1 applic Topical BID Qty: 1 RF: 2 Medical Decision Making This is a nontoxic-appearing 68-year-old male with significant comorbidities inc luding CHF, cirrhosis, A. fib not on OAC's. Chief complaint today is dyspnea with weight gain and abdominal fullness. Vitals reveal a heart rate of 84 in A. fib. EKG unchanged from prior with A. fib and incomplete right bundle branch block. Negative for STEMI. Noted weight gain from March of 20 kilograms. [id number] ultrasound reveals increased B lines bilaterally. Small right lower pleural effusion noted. Roughly 4 cm of fluid noted in the right lower gutter. Abdomen soft nontender. No fever. IV and labs ordered chest x-ray pending Course of stay in the ED patient's BP continues to trend down despite gentle IV fluid hydration. High risk for fluid overload secondary to above coronary comorbidities. Map trended down to 39 at which point nor epi 8 mcg/min was initiated. Labs reveal a worsening chronic kidney disease with a BUN of 75 and creatinine of 2.68. BNP elevated at 9000. Troponin within normal limits. Slight subtherapeutic digoxin level. Chest x-ray conferring fluid overload with mild right lower pleural effusion. Call placed to [facility] critical care for transfer. Case discussed with Dr. Chacon at [facility] critical care. He will accept patient in transfer. Slight titration up on the nor epi to 12 mics per minute. Systolics above 90 at this time. HPI General Date/Time Provider Initiated Documentation: 11/05/18 15:25 . HPI Narrative: This is a 68-year-old male presenting today to the emergency department with a chief complaint of shortness of breath and weight gain. Patient has a significant past medical history of DNR/DNI, chronic systolic CHF, hepatic encephalopathy, cirrhosis pulmonary hypertension, chronic kidney disease, A. fib not anticoagulated. Patient feels distention in his abdomen without pain. No fever no chills. He reports an unknown weight gain. He reports dyspnea on exertion and orthopnea. Home oxygen level requirements stable at 2 L via nasal cannula. No chest pain. Patient sent in by PCPs office for possible CHF/cirrhosis overload. Related Data Home Medications Medication Instructions Recorded Confirmed mupirocin calcium [Bactroban] 1 applic TOPICAL BID PRN #30 gm 08/19/15 11/05/18 allopurinol 300 mg tablet 300 mg PO DAILY #90 tab-cap 10/31/18 11/05/18 digoxin 125 mcg tablet 0.125 mg PO DAILY #90 tab 10/31/18 11/05/18 lactulose 20 gram/30 mL oral 20 g PO TID #1800 g 10/31/18 11/05/18 solution lisinopril 2.5 mg tablet 2.5 mg PO DAILY #90 tab 10/31/18 11/05/18 lorazepam 0.5 mg tablet 0.5 mg PO HS PRN #30 tab 10/31/18 11/05/18 magnesium oxide 400 mg (241.3 mg 400 mg PO BID #180 tab-cap 10/31/18 11/05/18 magnesium) tablet metolazone 5 mg tablet 5 mg PO as directed #30 tab-cap 10/31/18 11/05/18 metoprolol succinate ER 50 mg 50 mg PO DAILY #90 tab 10/31/18 11/05/18 tablet,extended release 24 hr potassium chloride ER 10 mEq 10 meq PO BID #90 tab 10/31/18 11/05/18 tablet,extended release rifaximin 550 mg tablet 550 mg PO BID #60 tab 10/31/18 11/05/18 simvastatin 40 mg tablet 40 mg PO DAILY #90 tab-cap 10/31/18 11/05/18 tamsulosin 0.4 mg capsule 0.8 mg PO DAILY #180 cap 10/31/18 11/05/18 torsemide 20 mg tablet 60 mg PO DAILY #180 tab-cap 10/31/18 11/05/18 triamcinolone acetonide 0.5 % 1 applic TOPICAL BID #1 tube 10/31/18 11/05/18 topical cream tiotropium bromide 18 mcg capsule 18 mcg INHALATION DAILY PRN #3 11/05/18 11/05/18 with inhalation device tab-cap Previous Rx's Medication Instructions Recorded allopurinol 300 mg tablet 300 mg PO DAILY #90 tab-cap 10/31/18 digoxin 125 mcg tablet 0.125 mg PO DAILY #90 tab 10/31/18 lactulose 20 gram/30 mL oral 20 g PO TID #1800 g 10/31/18 solution lisinopril 2.5 mg tablet 2.5 mg PO DAILY #90 tab 10/31/18 lorazepam 0.5 mg tablet 0.5 mg PO HS PRN #30 tab 10/31/18 magnesium oxide 400 mg (241.3 mg 400 mg PO BID #180 tab-cap 10/31/18 magnesium) tablet metolazone 5 mg tablet 5 mg PO as directed #30 tab-cap 10/31/18 metoprolol succinate ER 50 mg 50 mg PO DAILY #90 tab 10/31/18 tablet,extended release 24 hr potassium chloride ER 10 mEq 10 meq PO BID #90 tab 10/31/18 tablet,extended release rifaximin 550 mg tablet 550 mg PO BID #60 tab 10/31/18 simvastatin 40 mg tablet 40 mg PO DAILY #90 tab-cap 10/31/18 tamsulosin 0.4 mg capsule 0.8 mg PO DAILY #180 cap 10/31/18 torsemide 20 mg tablet 60 mg PO DAILY #180 tab-cap 10/31/18 triamcinolone acetonide 0.5 % 1 applic TOPICAL BID #1 tube 10/31/18 topical cream tiotropium bromide 18 mcg capsule 18 mcg INHALATION DAILY PRN #3 11/05/18 with inhalation device tab-cap Allergies Allergy/AdvReac Type Severity Reaction Status Date / Time heparin AdvReac Severe decreased Verified 11/05/18 15:46 renal function ? Iodine AdvReac Intermediate Rash Uncoded 11/05/18 15:46 General SUSIE: 3 Review of Systems Constitutional Denies chills, Reports fatigue, Denies fever(s), Denies headache(s), Reports lethargy, Denies night sweats, Reports weakness and Reports weight gain Eyes Denies loss of vision ENT Denies dysphagia and Denies headache(s) Cardiovascular Denies chest pain, Denies chest pain at rest, Denies chest pain with activity, Denies diaphoresis, Denies syncope, Denies rapid heart rate, Reports pedal edema, Reports edema, Reports irregular heart rhythm, Denies claudication, Reports leg edema, Denies lightheadedness, Denies radiating jaw, neck or arm pain, Denies palpitations, Reports dyspnea, Reports dyspnea on exertion, Reports orthopnea, Reports paroxysmal nocturnal dyspnea and Denies slow heart rate Respiratory Reports dyspnea, Reports dyspnea on exertion and Denies wheezing Gastrointestinal Denies abdominal pain, Reports bloating, Denies change in bowel habits, Denies cramping, Denies dysphagia, Denies dyspepsia, Denies loose stools, Denies nausea and Denies vomiting Genitourinary Denies hematuria and Denies difficulty urinating Musculoskeletal Denies back pain, Denies myalgias, Denies atrophy and Denies deformity Neurologic Denies syncope, Denies headache(s), Denies loss of vision and Reports weakness Endocrine Reports fatigue and Denies palpitations Allergic/Immunologic Denies wheezing [facility] Medical History DNI (do not intubate) (Acute) DNR (do not resuscitate) (Acute) Chronic respiratory failure with hypoxia (Chronic) Cellulitis of both lower extremities (Chronic) Chronic systolic CHF (congestive heart failure) (Chronic) Cardiomyopathy (Chronic) Hepatic encephalopathy (Acute) Urinary retention (Acute) Cirrhosis (Chronic) Non-sustained ventricular tachycardia (Chronic) Altered mental status (Acute) Advanced directives, counseling/discussion (Acute) DVT prophylaxis (Acute) Pulmonary hypertension (Chronic) CKD (chronic kidney disease) (Chronic) BUCKY (obstructive sleep apnea) (Chronic) Congestive heart failure (Chronic) Hand arthritis (Chronic) MGUS (monoclonal gammopathy of unknown 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) Unspecified jaundice (Acute 10/24/17) TSH elevation (Resolved 03/03/14) Sleep apnea (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) Left wrist pain (Resolved 02/22/16) Hyperlipidemia (Chronic 03/20/13) History of alcoholism (Chronic) Family hx of alcoholism (Chronic) History of tobacco use (Chronic) Gout (Chronic 03/03/14) Facial dermatitis (Chronic 04/17/17) Chronic venous stasis dermatitis of both lower extremities (Chronic 10/24/17) Atrial fibrillation (Chronic 03/03/14) Anticoagulated on warfarin (Chronic) Disorder of lung (Resolved 11/14/12) Surgical History Extraction of cataract (02/18/16) 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 Grandfather No problems noted. Mother Diabetes Alcohol abuse Father Alcohol abuse Grandmother Diabetes Grandmother No problems noted. 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 Working smoke detector in home: Yes Fire extinguisher in home: Yes Carbon monox detector in home: Yes Firearms in home: No Do you feel safe in your relationship?: Yes Exam Const General: cooperative, comfortable and no acute distress Nutritional Appearance: obese, overweight and edematous Orientation: alert, awake and oriented x3 [facility] Head: normal to inspection Ears: hearing grossly normal bilaterally General nose exam: other Face and sinus: normal facial exam Mouth: oral mucosae normal Eyes General: appearance normal, both eyes and all related structures Sclera: sclerae normal and scleral abnormality Cornea: corneas normal Neck Neck: normal visual inspection Chest Chest: normal inspection of the chest Resp Effort & Inspection: normal respiratory effort Auscultation: crackles bilaterally Cardio Jugular venous pressure: no JVD Rate: regular rate Rhythm: abnormal rhythm irregularly irregular Heart Sounds: S1 normal and S2 normal Bruits: abdominal aortic bruit Pulses: posterior tibial pulses present and dorsalis pedis pulses present GI Inspection: distended Palpation: soft, no hepatosplenomegaly, not firm, no guarding and nontender Percussion: dullness to percussion and fluid wave Auscultation: normal bowel sounds Back/Spine/Pelvis Back: no CVA tenderness Skin General skin exam: no rashes or lesions noted Neuro General: alert, awake and oriented x3 Extrem Right lower extremity: edema Details: pitting and 2+ Left lower extremity: edema Details: pitting and 2+
[2018-11-05 16:51] LABS: Abs Immature Grans 0.02 k/cumm (0.0-0.09); Absolute Basophil Count 0.02 k/cumm (0.0-0.2); Absolute Eosinophil Count 0.03 k/cumm (0.0-0.7); Absolute Lymphocyte Count 0.83 k/cumm (1.2-3.4); Absolute Monocyte Count 0.52 k/cumm (0.11-0.7); Absolute Neutrophil Count 6.45 k/cumm (1.2-6.7); Basophils % 0.3; Eosinophils % 0.4; HCT 41.6 % (40.0-50.0); HGB 13.6 g/dL (13.5-17.5); Immature Grans % 0.3; Lymphocytes % 10.5; Mean Corp. HGB Concentration 32.7 g/dL (32.0-36.0); Mean Corpuscular Hemoglobin 33.6 pg (27.0-33.0); Mean Corpuscular Volume 102.7 fL (80-95); Monocytes % 6.6; Neutrophils % 81.9; Platelet Count 142 x1000/uL (130-400); RBC 4.05 m/cumm (4.50-6.00); RBC Distribution Width 15.9 % (11.8-14.1); White Blood Cell Count 7.87 k/cumm (4.4-10.8)
--- NOTE | 2018-11-05 17:17 | DI.RAD_ITS ---
SYMPTOM/DIAGNOSIS: SOB, WEIGHT GAIN, BLANTON, ORTHOPNEA AP UPRIGHT AND LATERAL CHEST: A small right pleural effusion and region of volume loss involving the right lower lobe is demonstrated. The left lung is well expanded and free of infiltrate. There is no left pleural effusion. The heart is enlarged. SUMMARY: Findings which would be consistent with congestive failure. A superimposed acute pneumonitis could not be excluded in this patient.
--- NOTE | 2018-11-05 17:30 | DI.VRAD_ITS ---
EXAM: XR Chest, 2 Views EXAM DATE/TIME: 11/05/2018 4:16 PM CLINICAL HISTORY: 68 years old, male; Signs and symptoms; Orthopnea (sob when lying down) and shortness of breath and other: Weight gain TECHNIQUE: Imaging protocol: XR of the chest, 2 views. COMPARISON: [facility] XR CHEST 2V PA LATERAL 07/10/2018 3:45 PM FINDINGS: Lungs: There is bilateral hilar haziness and prominence to the interstitial markings. Patchy airspace opacities are suggested in the right infrahilar region. There is bilateral segmental bronchial wall thickening appreciated as well. Pleural space: There is blunting to the lateral and posterior costophrenic angles. Heart/Mediastinum: Stable moderate cardiomegaly. Bones/joints: No acute skeletal abnormalities. IMPRESSION: Main diagnostic consideration is that of decompensated congestive heart failure, as manifested by mild diffuse pulmonary interstitial edema, early airspace edema, and small bilateral pleural effusions. Superimposed infectious pneumonic process should be entertained in the appropriate clinical setting. Dictated and Authenticated by: Abhay Dias MD. Ordering:ZIARE Lopez MD
[2018-11-05 17:37] LABS: INR 1.4 (0.9-1.1); Prothrombin Time 13.7 sec (9.3-11.0)
[2018-11-05 18:29] LABS: Digoxin 0.88 ng/mL (0.90-2.00)
[2018-11-05 18:31] LABS: PTT Activated 34.3 sec (21.0-31.4)
[2018-11-05 18:36] LABS: ALT 9 U/L (12-78); AST 20 U/L (15-37); Albumin 2.7 g/dL (3.4-5.0); Alkaline Phosphatase 265 U/L (46-116); Anion Gap 4.9 mmol/L (3-11); BUN 75 mg/dL (7-18); Bilirubin, Total 1.1 mg/dL (0.2-1.0); CO2 31.1 mmol/L (21.0-32.0); CREATININE 2.68 mg/dL (0.70-1.30); Calcium 8.5 mg/dL (8.5-10.1); Chloride 94 mmol/L (98-107); Estimated GFR 23.75 (mL/min/1.73m2); Glucose 106 mg/dL (70-100); Magnesium 2.3 mg/dL (1.8-2.4); NT-proBNP 9362 pg/mL; Potassium 4.3 mmol/L (3.5-5.1); Sodium 130 mmol/L (136-145); Total Protein 7.6 g/dL (6.4-8.2); Troponin I 0.02 ng/mL (0.00-0.06)
== END 2018-11-05 21:25 | disposition short-term general hospital (02) ==
PROVIDERS: Emergency Provider Physician Assistant
DX: K70.31 Alcoholic cirrhosis of liver with ascites (principal); I50.23 Acute on chronic systolic (congestive) heart failure; I95.9 Hypotension, unspecified; N28.9 Disorder of kidney and ureter, unspecified; E87.1 Hypo-osmolality and hyponatremia; I48.91 Unspecified atrial fibrillation; E87.70 Fluid overload, unspecified; R63.5 Abnormal weight gain; I27.20 Pulmonary hypertension, unspecified; R06.01 Orthopnea; N18.9 Chronic kidney disease, unspecified; R60.0 Localized edema; Z99.81 Dependence on supplemental oxygen
CPT/HCPCS: 36415; 80053; 93005; 96361; 96365; 99285; 71046; 80162; 83735; 83880; 84484; 85025; 85610; 85730; 93010